=== PATIENT | male | born 1955 | race Caucasian/White ===

== ENCOUNTER → 2020-03-16 10:01 | Outpatient (BNVA) | payer MEDICARE, SELFPAY | PROVIDERS: Family Provider Nurse Practitioner Family; PCP Nurse Practitioner Family; Visit Provider Registered Nurse | DX: R05 Cough (principal); R60.9 Edema, unspecified; M79.89 Other specified soft tissue disorders; I10 Essential (primary) hypertension; R73.03 Prediabetes; E66.01 Morbid (severe) obesity due to excess calories | CPT/HCPCS: 80053; 80061; 83880; 85025 ==

== ENCOUNTER → 2020-03-17 16:48 | Outpatient (BNVA) | payer MEDICARE, SELFPAY | PROVIDERS: Family Provider Nurse Practitioner Family; PCP Nurse Practitioner Family; Visit Provider Registered Nurse | DX: R05 Cough (principal); R60.9 Edema, unspecified; M79.89 Other specified soft tissue disorders; I10 Essential (primary) hypertension; R73.03 Prediabetes; E66.01 Morbid (severe) obesity due to excess calories | CPT/HCPCS: 83036 ==

== ENCOUNTER → 2020-06-15 08:51 | Outpatient (BNVA) | payer MEDICARE, SELFPAY | PROVIDERS: Family Provider Nurse Practitioner Family; PCP Nurse Practitioner Family; Visit Provider Registered Nurse | DX: E11.9 Type 2 diabetes mellitus without complications (principal); I10 Essential (primary) hypertension; Z12.5 Encounter for screening for malignant neoplasm of prostate | CPT/HCPCS: 80053; 80061; 83036; G0103 ==

== ENCOUNTER → 2020-08-17 13:49 | Outpatient (BNVA) | payer MEDICARE, SELFPAY | PROVIDERS: Family Provider Nurse Practitioner Family; PCP Nurse Practitioner Family; Visit Provider Registered Nurse | DX: R10.9 Unspecified abdominal pain (principal) | CPT/HCPCS: 81000 ==

== ENCOUNTER → 2020-09-15 09:01 | Outpatient (BNVA) | payer MEDICARE, SELFPAY | PROVIDERS: Family Provider Nurse Practitioner Family; PCP Nurse Practitioner Family; Visit Provider Registered Nurse | DX: E11.9 Type 2 diabetes mellitus without complications (principal) | CPT/HCPCS: 80053 ==

== ENCOUNTER → 2020-09-21 09:31 | Outpatient (BNVA) | payer MEDICARE, SELFPAY | PROVIDERS: Family Provider Nurse Practitioner Family; PCP Nurse Practitioner Family; Visit Provider Registered Nurse | DX: E11.9 Type 2 diabetes mellitus without complications (principal) | CPT/HCPCS: 83036 ==

== ENCOUNTER → 2020-12-22 10:56 | Outpatient (BNVA) | payer MEDICARE, SELFPAY | PROVIDERS: Family Provider Nurse Practitioner Family; PCP Nurse Practitioner Family; Visit Provider Surgery | DX: Z01.812 Encounter for preprocedural laboratory examination (principal); Z12.11 Encounter for screening for malignant neoplasm of colon | CPT/HCPCS: 87635 ==

== ENCOUNTER 2020-12-27 06:00 | Day surgery (SDC) | payer MEDICARE, SELFPAY ==
[2020-12-23 11:39] VITALS: BMI 38.7
[2020-12-27 06:23] VITALS: BP 159/66; PULSE 72; RESP 16; TEMP 36.8; O2SAT 100
[2020-12-27] MEDS: sodium chloride 0.9% 1,000 ML 30 ML IV (06:37)
[2020-12-27 06:42] LABS: Glucose Point of Care 162 mg/dL (70-110)
--- NOTE | 2020-12-27 06:51 | ANES.PREANE2 ---
Pre-Anesthetic Assessment Pre-Anesthetic Assessment: Height/Weight: Height 1.68 m Weight 108.862 kg Temp Pulse Resp BP Pulse Ox 98.2 F 72 16 159/66 100 12/27/20 06:23 12/27/20 06:23 12/27/20 06:23 12/27/20 06:23 12/27/20 06:23 Preop Diagnosis: upper gi symptoms Proposed Procedure: Operation Date: 12/27/20 07:00 Proposed Procedures p EGD/colcon 48235 R10.9 05690 Z12.11(Not Applicable) - Erasmo Salas MD s Colonoscopy 96389 Z12.11(Not Applicable) - Erasmo Salas MD Familial anesthetic complications: None Was Beta Jesse taken within 24 hours: Yes Last intake: Intake Last Liquid Date 12/26/20 Last Liquid Time 20:00 Last Solid Date 12/25/20 Last Solid Time 21:00 Social: Social History: Alcohol and No tobacco Comment: 3 beers daily Exam: Pre-Anes Outpt Exam: alert, oriented x 3, clear to auscultation bilaterally and regular rate & rhythm Airway: Cervical ROM: WNL MP: 2 Dentition: False Pulmonary: Pulmonary: Sleep apnea CV/HEM: CV/HEM: HTN Metabolic: Metabolic: DM and Morbid obesity Anesthetic Plan: ASA status: 3 Anesthesia: MAC Risk of > 500 ml blood loss (7ml/kg in children): No Meds/Allergies Current Medications: Current Medications Generic Name Dose Route Start Last Admin Trade Name Freq PRN Reason Stop Dose Admin Sodium Chloride 1,000 mls @ 30 ml s/hr 12/27/20 06:30 12/27/20 06:37 Sodium Chloride 0.9% IV 12/28/20 06:29 30 mls/hr .Q24H FOZIA Administration PFSH Anesthesia PFSH: Medical History (Updated 12/24/20 @ 18:04 by Erasmo Salas MD) Anxiety Colon polyps Diabetes Dyslipidemia Hypertension Primary insomnia Sleep apnea Surgical History (Updated 12/24/20 @ 12:38 by Erasmo Salas MD) Hx of knee surgery left shoulder Hx of shoulder surgery left knee X2 Status post colonoscopy Social History Smoking and tobacco status: never smoked Alcohol intake: current Alcohol intake frequency: holidays/special occasions only Data Anesthesia Other Labs: Laboratory Results - last 48 hr 12/27/20 06:38 POC Glucose 162 H Cardiac Studies: No Data to Display
--- NOTE | 2020-12-27 06:54 | W.PM.OPSUD ---
Surgery/Procedure H&P Update DATE OF PROCEDURE: December 27, 2020 DATE H&P PERFORMED: 12/24/20 H&P UPDATE INFORMATION: I have reviewed H&P completed within last 30 days, I have examined patient prior to procedure and No changes to prior documentation PREOP DIAGNOSIS: upper gi symptoms PLANNED PROCEDURE: Operation Date: 12/27/20 07:00 Proposed Procedures p EGD/colcon 92369 R10.9 87316 Z12.11(Not Applicable) - Erasmo Salas MD s Colonoscopy 04704 Z12.11(Not Applicable) - Erasmo Salas MD
[2020-12-27 07:41] VITALS: BP 144/72; PULSE 63; RESP 16; TEMP 36.4; O2SAT 95
[2020-12-27 07:52] VITALS: BP 148/61; PULSE 70; RESP 18; O2SAT 98
--- NOTE | 2020-12-27 14:55 | ANE.PACU2 ---
Inpatient post-anesthesia follow up: Airway intact: Yes Vital signs: Temperature 97.6 F Pulse Rate 70 Respiratory Rate 18 Blood Pressure 148/61 Pulse Oximetry 98 Oxygen Delivery Me thod Room Air Oxygen Flow Rate Fraction of Inspir ed Oxygen Hydration adequate: Yes Nausea and vomiting: No Pain level: 1 Mental status: Baseline
== END 2020-12-27 08:05 | disposition home or self-care (01) ==
PROVIDERS: PCP Nurse Practitioner Family; Visit Provider Surgery
PROC: 0DJ08ZZ Inspection of Upper Intestinal Tract, Via Natural or Artificial Opening Endoscopic (ICD-10-PCS; CPT 43235; principal; 2020-12-27 07:00)
PROC: 0DJD8ZZ Inspection of Lower Intestinal Tract, Via Natural or Artificial Opening Endoscopic (ICD-10-PCS; CPT 45378; 2020-12-27 07:00)
DX: Z12.11 Encounter for screening for malignant neoplasm of colon (principal); K25.9 Gastric ulcer, unspecified as acute or chronic, without hemorrhage or perforation; Z86.010 Personal history of colon polyps; K57.30 Diverticulosis of large intestine without perforation or abscess without bleeding; D12.8 Benign neoplasm of rectum; G47.33 Obstructive sleep apnea (adult) (pediatric); I10 Essential (primary) hypertension; E11.9 Type 2 diabetes mellitus without complications; E66.01 Morbid (severe) obesity due to excess calories; Z68.38 Body mass index [BMI] 38.0-38.9, adult; F41.9 Anxiety disorder, unspecified; E78.5 Hyperlipidemia, unspecified; G47.30 Sleep apnea, unspecified
CPT/HCPCS: 12345; 36416; 43239; 45380; 82962; 88305; J7030

== ENCOUNTER 2020-12-29 07:08 | Outpatient (CLI) | payer MEDICARE, SELFPAY ==
[2020-12-29 07:27] VITALS: BMI 38.7
--- NOTE | 2020-12-29 08:45 | NMCV_ITS ---
NM ferny perf SPECT r/s* [id number] Cj Stokes Age: 65 Gender: M : 1955 Exam Date: 12/29/2020 09:08 Ordering Phys: Zahira Marrufo DO Technologist: JESU Dennis Exam Location: [facility] Indications: Chest pain STRESS TEST Please [facility] IMAGE PROTOCOL Rest/Stress 1 Lexiscan Day Radiopharmaceutical Dose (mCi) Administration Site Administered by Rest: Tc-99m 10.6 IV JESU Dennis Sestamibi Stress:Tc-99m 32.4 IV JESU Calvo Sestamibi Rest: 29-Dec-2020 60 Discovery 630 Stress: 29-Dec-2020 45 Discovery 630 0.4mg Lexiscan. Images obtained in supine and prone position. SPECT RESULTS Technical Quality: Good Raw Data Analysis: Normal Image Corrections: Patient motion artifact - motion correction applied to rest images Summed Stress Score: 1 Summed Rest Score: 3 Summed Difference Score: 0 PERFUSION FINDINGS There is a medium sized perfusion defect in the mid inferior and apical inferior wall. This improves with stress, likely artifact. FUNCTIONAL RESULTS (calculated via Gated SPECT) Stress Image LV EF (%): 67 Stress EDV (mL):125 TID: 1.14 Stress ESV (mL):41 FUNCTIONAL FINDINGS: LV systolic function is normal with EF of 67%. IMPRESSIONS 1. There is a medium sized perfusion defect in inferior wall that improves with stress. This is likely an artifact. No evidence of ischemia. 2. LV systolic function is normal. Blair Mccord MD (Electronically Signed) Final Date: 29 December 2020 19:07 S
--- NOTE | 2020-12-29 08:45 | ECG_ITS ---
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 Interpretive Statements NAME OF STUDY: LEXISCAN SESTAMIBI STRESS TEST INDICATION: [Chest Pain] Procedure: At the baseline, the blood pressure was 194/70mmHg, heart rate of 61 bpm. The electrocardiogram showed normal sinus rhythm, left ventricular hypertrophy changes and ST-T waves consistent with LVH. The Lexiscan was infused over a duration of 20 seconds. A total of 0.4 mg of Lexiscan was infused. The stress phase was continued for a total of 5 minutes. Heart rate at the end of the stress phase was 78 bpm. Blood pressure was 246/60 mmHg. The EKG at peak infusion revealed sinus rhythm with no significant ST-T wave changes. Sestamibi was injected 20 seconds after the Lexiscan infusion. Blood pressure at the end of recovery phase was 201/66mmHg with a heart rate of 71 bpm. EKG remained unchanged. Conclusion: 1. Normal EKG response to Lexiscan infusion. 2. No Lexiscan induced chest pain or cardiac arrhythmia. 3. Hypertensive blood pressure response and normal heart rate response. 4. Sestamibi/sestamibi perfusion scan pending; see separate report. Electronically Signed On 01-02-2021 13:56:17 BACK HANGER by Blair Mccord M.D. [id number]
[2020-12-29] MEDS: hyDRALAzine 20 mg/mL INJ 1 mL 10 MG IVP (09:55)
--- NOTE | 2020-12-29 09:58 | PC.NURSE ---
CALLED DR LEACH WITH PT BP OF 216/62. HR OF 61. PT ASYMPTOMATIC. VERBAL ORDER OF 10MG OF HYDRALAZINE IVP.
[2020-12-29] MEDS: regadenoson 0.4 Mg/5 ml Syringe IVP (10:23)
[2020-12-29 10:34] VITALS: BP 201/66; PULSE 72
== END 2020-12-29 07:09 | disposition home or self-care (01) ==
LOC: CDL 07:11
PROVIDERS: PCP Nurse Practitioner Family; Visit Provider Family Medicine
DX: R07.9 Chest pain, unspecified (principal)
CPT/HCPCS: 78452; 93017; A9500; J0360; J2785

== ENCOUNTER 2021-02-23 20:00 | Outpatient (CLI) | payer MEDICARE, SELFPAY | END 2021-02-23 20:01 | disposition home or self-care (01) | LOC: SLEEP 02-24 09:56 | PROVIDERS: PCP Nurse Practitioner Family; Visit Provider Family Medicine | DX: G47.10 Hypersomnia, unspecified (principal); R53.83 Other fatigue; G47.33 Obstructive sleep apnea (adult) (pediatric) | CPT/HCPCS: 95811 ==

== ENCOUNTER → 2021-09-13 08:21 | Outpatient (BNVA) | payer MEDICARE, SELFPAY | PROVIDERS: PCP Registered Nurse; Visit Provider Registered Nurse | DX: E11.9 Type 2 diabetes mellitus without complications (principal); E78.5 Hyperlipidemia, unspecified; I10 Essential (primary) hypertension | CPT/HCPCS: 80053; 80061; 83036; 85025; G0103 ==

== ENCOUNTER → 2021-10-04 09:08 | Outpatient (BNVA) | payer MEDICARE, SELFPAY | PROVIDERS: PCP Registered Nurse; Visit Provider Internal Medicine Cardiovascular Disease | DX: R00.0 Tachycardia, unspecified (principal); R00.2 Palpitations | CPT/HCPCS: 80048; 82306; 84443 ==

== ENCOUNTER 2021-10-18 13:04 | Observation (INO) | payer MEDICARE, SELFPAY ==
[2021-10-18] VITALS (11 sets, daily range): BP systolic 156–172; BP diastolic 63–88; PULSE 56–88; RESP 14–21; TEMP 36.5–36.6; O2SAT 90–100; BMI 38.7
--- NOTE | 2021-10-18 13:04 | ECG_ITS ---
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 Measurements Intervals [place] Rate: 65 P: 59 KS: 169 QRS: 20 QRSD: 78 T: -27 QT: 369 QTc: 384 Interpretive Statements SINUS RHYTHM ST DEVIATION AND MODERATE T-WAVE ABNORMALITY, CONSIDER ANTEROLATERAL ISCHEMIA [-0.1+ mV T-WAVE IN V3-V6] ST DEVIATION AND MODERATE T-WAVE ABNORMALITY, CONSIDER INFERIOR ISCHEMIA [-0.1+ mV T-WAVE IN II/aVF] No previous ECG available for comparison Electronically Signed On 10-19-2021 17:40:02 MUD ENGINEER by Blair Mccord M.D. [email or web address]/store/[id number]
--- NOTE | 2021-10-18 13:25 | XRR_ITS ---
PROCEDURE INFORMATION: Exam: XR Chest Exam date and time: 10/18/2021 1:25 PM Age: 66 years old Clinical indication: Chest pain. Angina pectoris. TECHNIQUE: Imaging protocol: XR of the chest. Views: 1 view. COMPARISON: MRI Thoracic Spine w/o* [id number] 04/21/2016 3:53 PM FINDINGS: Lungs: Mild right basilar scarring or atelectasis. Somewhat nodular opacity projected over the left costophrenic angle measuring 2 cm. Possible small nodule in the left apex measuring 4.8 mm. Pleural spaces: No pleural effusion.. No pneumothorax. Heart/Mediastinum: The heart is enlarged. No gross evidence of pneumomediastinum. Bones/joints: No gross fracture. XR/XR chest 1V portable [id number] IMPRESSION: 1. Cardiomegaly. 2. Somewhat nodular opacity projected over the left costophrenic angle. Possible small nodule in the left apex. 3. Recommend CT chest to further assess. Radiation Dose CTDIVOL = (mGy): DLP = (mGy-cm)
--- NOTE | 2021-10-18 13:27 | W.ED.CHESTPA ---
HPI - Chest Pain General: Chief Complaint: Chest Pain Stated Complaint: Chest pains Time Seen by Provider: 10/18/21 13:25 History of Present Illness: HPI narrative: 66-year-old male presents emergency room complaining of chest pain. He states he had this for the last 11 days he has taken his regular blood pressure medicines as noted his blood pressure. He called the supply person to increase his blood pressure medicine. Pain does not radiate to his neck or arms, no diaphoresis no shortness of breath. Not had any fever sweats chills or cough. He did have a stress test earlier this year in December Lexiscan sestamibi was read as unremarkable he is not had any further evaluation. complaint: chest pain and chest heaviness Onset (ago): day(s) (11) Timing of current episode: episodic Onset: during rest Pain location: substernal Pain radiation: none Severity: mild Quality: tightness Relieving factors: nothing Exacerbating factors: nothing Associated symptoms: Deny no associated symptoms, abdominal pain, diaphoresis, dyspnea, fever(s), leg edema, nausea, palpitations, sense of impending doom, syncope or vomiting Treatment prior to arrival: none Review of Systems Const: Denies: fever(s) or diaphoresis ENMT: Denies: throat pain, ear or mastoid pain, nasal discharge or nasal congestion Card: Denies: palpitations or syncope Resp: Denies: dyspnea GI: Denies: abdominal pain, nausea or vomiting : Denies: flank pain, dysuria, urinary frequency or urinary urgency Skin/Breast: Denies: rash or pruritus PFS ED PFSH: Medical History Anxiety Colon polyps Diabetes Dyslipidemia Hypertension Primary insomnia Sleep apnea Surgical History H/O esophagogastroduodenoscopy (12/27/20) 2016 Hx of knee surgery left shoulder Hx of shoulder surgery left knee X2 Status post colonoscopy (12/27/20) 2016 Family History Other Cancer Social History (Updated 10/18/21 @ 19:44 by Peter Ham MD) Smoking and tobacco status: former smoker Alcohol intake: current Alcohol intake frequency: holidays/special occasions only Lives independently: Yes Household members: spouse Marital status: Current occupational status: retired Physical Exam Const: COMMON NORMALS: no acute distress GENERAL APPEARANCE: cooperative and comfortable ORIENTATION/CONSCIOUSNESS: Yes awake, Yes oriented to person, Yes oriented to place and Yes oriented to time HENMT: COMMON NORMALS: normocephalic, atraumatic and hearing grossly normal bilaterally HEAD & SCALP: normocephalic and atraumatic Neck/C-Spine: COMMON NORMALS: no JVD Resp: COMMON NORMALS: normal respiratory effort, No retractions, No use of accessory muscles and clear to auscultation bilaterally AUSCULTATION: clear to auscultation bilaterally Cardio: COMMON NORMALS: no JVD, regular rate, regular rhythm and No murmurs present (Cardio) RATE: regular rate RHYTHM: regular rhythm GI: COMMON NORMALS: Soft to palpation and No hepatosplenomegaly present AUSCULTATION: Yes normoactive bowel sounds PALPATION: Yes Soft to palpation, No Tenderness to palpation present (GI), No Guarding due to palpation present (GI) and Yes No hepatosplenomegaly present Extremity: COMMON NORMALS: normal to inspection, capillary refill normal, no clubbing, cyanosis or edema, no calf tenderness and no pedal edema Neuro: SENSORIUM/ORIENTATION: Yes oriented to person, Yes oriented to place and Yes oriented to time Skin: COMMON NORMALS: no rashes or lesions noted GENERAL SKIN EXAM: no rashes or lesions noted Course Vital Signs: Vital signs: Vital Signs Temperature 98.7 F 10/19/21 18:38 Pulse Rate 64 10/19/21 18:38 Respiratory Rate 14 10/19/21 18:38 Blood Pressure 157/77 10/19/21 18:38 Pulse Oximetry 96 10/19/21 18:38 MDM - Chest Pain MDM Narrative: Medical decision making narrative: Troponins are negative however patient clearly has ST depression with evolution of his EKG from his first to the second. Given this and his high risk profile organ to go ahead and admit him for further evaluation cardiology consultation. Lab Data: Labs: Lab Results 10/18/21 10/18/21 10/18/21 13:48 13:48 14:01 WBC 11.5 10^3/uL H 10 ^3/uL (4.0-10.0) RBC 4.52 10^6/uL 10^6 /uL (4.1-5.3) Hgb 13.1 g/dL g/dL (11.7-16.6) Hct 36.3 % L % (42.0-52.0) MCV 80.3 fl fl (80-94) MCH 29.0 pg pg (28.0-34.0) MCHC 36.1 g/dL H g/dL (30.0-36.0) RDW 13.5 % % (12.1-15.1) Plt Count 249 10^3/cmm 10^3 /cmm (130-400) MPV 9.2 fL fL (7.4-10.4) Neut % (Auto) 70.6 % % Lymph % (Auto) 18.5 % % [place] % (Auto) 6.5 % % Eos % (Auto) 3.1 % % Baso % (Auto) 0.6 % % Neut # (Auto) 8.11 10^3/uL H 10 ^3/uL (1.8-7.7) Lymph # (Auto) 2.1 10^3/uL 10^3/ uL (0.8-4.8) [place] # (Auto) 0.8 10^3/uL 10^3/ uL (0.2-0.9) Eos # (Auto) 0.4 10^3/uL 10^3/ uL (0.0-0.8) Baso # (Auto) 0.1 10^3/uL 10^3/ uL (0.0-0.1) Nucleated RBC % (a uto) 0 % % Nucleated RBCs # 0.0 /100WBC /100W BC PT 13.10 SECONDS SEC ONDS (12.1-14.9) INR 0.96 (0.8-1.2) APTT 25.9 SECONDS SECO NDS (23.9-36.7) Sodium 128 mmol/L L mmol /L (136-145) Potassium 4.3 mmol/L mmol/L (3.5-5.1) Chloride 87 mmol/L L mmol/ L (98-107) Carbon Dioxide 25 mmol/L mmol/L (22-29) Anion Gap 20.3 H (5-19) BUN 12 mg/dL mg/dL (8-23) Creatinine 0.9 mg/dL mg/dL (0.7-1.2) GFR Calculation 84.2 mL/min L mL/ min (90-130) Glucose 130 mg/dL H mg/dL (65-115) Calculated Osmolal ity 268 mOsm/kg L mOs m/kg (285-295) Calcium 9.1 mg/dL mg/dL (8.5-10.5) Total Bilirubin 0.3 mg/dL mg/dL (0.15-1.2) AST 17 U/L U/L (0-40) ALT 19 U/L U/L (0-41) Alkaline Phosphata se 93 IU/L IU/L (40-130) Troponin T Baselin e Troponin T 120 Min camacho Delta Troponin T Total Protein 7.1 g/dL g/dL (6.6-8.7) Albumin 4.3 g/dL g/dL (3.5-5.2) Globulin 2.8 g/dL g/dL (1.3-4.6) 10/18/21 10/18/21 14:01 15:48 WBC RBC Hgb Hct MCV MCH MCHC RDW Plt Count MPV Neut % (Auto) Lymph % (Auto) [place] % (Auto) Eos % (Auto) Baso % (Auto) Neut # (Auto) Lymph # (Auto) [place] # (Auto) Eos # (Auto) Baso # (Auto) Nucleated RBC % (a uto) Nucleated RBCs # PT INR APTT Sodium Potassium Chloride Carbon Dioxide Anion Gap BUN Creatinine GFR Calculation Glucose Calculated Osmolal ity Calcium Total Bilirubin AST ALT Alkaline Phosphata se Troponin T Baselin e 17 ng/L H ng/L (0-15) Troponin T 120 Min camacho 15.79 ng/L H ng/L (0-15) Delta Troponin T -1.21 ABS# L ABS# (0-10) Total Protein Albumin Globulin EKG Data^: EKG 1: EKG interpretation date: 10/18/21 EKG interpretation time: 13:20 Prior EKG tracings: not available for review Interpretation: ST depression 1 and 2 was inverted T waves in 2 3 and aVF. There is also some ST depression with inverted T waves in V3 through 6. No ST elevation rate of 65 with a normal UT interval. EKG 2: EKG interpretation date: 10/18/21 EKG interpretation time: 16:08 Prior EKG tracings: available for review Computer generated interpretation: T waves are now upright in leads I and II with persistent T wave inversion in V3 through [address] depression lateral leads V4 through 6. No acute ST elevation is noted. Rate of 56 UT interval normal. Discharge Plan Discharge Patient Disposition: Admitted As Inpatient Admit Provider: Peter Ham Clinical Impression: Chest pain, Sleep apnea, Hypertension, Hyperlipidemia, Morbid obesity, Type 2 diabetes, HbA1c goal < 7% Condition: Stable Discharge Diet: Cardiac and Diabetic Discharge Activity: Increase activity as tolerated Coding Level of Care Code ED Community Recreation Coordinator for Chg Fwd Exam Comprehensive
[2021-10-18] MEDS: aspirin 81 mg Chew Tablet 324 MG PO (13:34)
[2021-10-18] MEDS: nitroglycerin 1 gm/inch oint Pkt 1 INCH TOPICAL (13:37)
[2021-10-18] MEDS: ondansetron 2 mg/ML SDV 2 mL 4 MG IVP (13:47)
[2021-10-18] MEDS: morphine 4 mg/mL SDV 1 mL 2 MG IVP (13:47)
[2021-10-18 13:58] LABS: Basophils # 0.1 10^3/uL (0.0-0.1); Basophils % 0.6 %; Eosinophils # 0.4 10^3/uL (0.0-0.8); Eosinophils % 3.1 %; Hematocrit 36.3 % (42.0-52.0); Hemoglobin 13.1 g/dL (11.7-16.6); Lymphocytes # 2.1 10^3/uL (0.8-4.8); Lymphocytes % 18.5 %; Mean Corpuscular HGB Conc 36.1 g/dL (30.0-36.0); Mean Corpuscular Volume 80.3 fl (80-94); Mean Platelet Volume 9.2 fL (7.4-10.4); Monocytes # 0.8 10^3/uL (0.2-0.9); Monocytes % 6.5 %; Neutrophils # 8.11 10^3/uL (1.8-7.7); Neutrophils % 70.6 %; Nucleated Red Blood Cells % 0 %; Platelet Count 249 10^3/cmm (130-400); Red Blood Count 4.52 10^6/uL (4.1-5.3); Red Cell Distribution Width 13.5 % (12.1-15.1); White Blood Count 11.5 10^3/uL (4.0-10.0)
[2021-10-18 14:27] LABS: Alanine Aminotransferase 19 U/L (0-41); Albumin Level 4.3 g/dL (3.5-5.2); Alkaline Phosphatase 93 IU/L (40-130); Anion Gap 20.3 (5-19); Aspartate Amino Transferase 17 U/L (0-40); Blood Urea Nitrogen 12 mg/dL (8-23); Calcium 9.1 mg/dL (8.5-10.5); Carbon Dioxide 25 mmol/L (22-29); Chloride 87 mmol/L (98-107); Globulin 2.8 g/dL (1.3-4.6); Glomerular Filtration Rate 84.2 mL/min (90-130); Glucose 130 mg/dL (65-115); Osmolality Calculated 268 mOsm/kg (285-295); Potassium 4.3 mmol/L (3.5-5.1); Sodium 128 mmol/L (136-145); Total Bilirubin 0.3 mg/dL (0.15-1.2); Total Protein 7.1 g/dL (6.6-8.7)
[2021-10-18 14:30] LABS: INR 0.96 (0.8-1.2)
[2021-10-18 14:31] LABS: Partial Thromboplastin Time 25.9 SECONDS (23.9-36.7)
[2021-10-18 14:37] LABS: Troponin(5th) Baseline 17 ng/L (0-15)
--- NOTE | 2021-10-18 15:25 | ECG_ITS ---
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 Measurements Intervals [place] Rate: 58 P: 56 DE: 159 QRS: 11 QRSD: 85 T: 12 QT: 389 QTc: 384 Interpretive Statements SINUS BRADYCARDIA MODERATE T-WAVE ABNORMALITY, CONSIDER ANTEROLATERAL ISCHEMIA [-0.1+ mV T-WAVE IN V3-V6] Compared to ECG 10/18/2021 13:20:08 Sinus rhythm no longer present T-wave abnormality still present Possible ischemia still present Electronically Signed On 10-19-2021 17:45:01 JOINERY MACHINIST by Blair Mccord M.D. [id number]
[2021-10-18 16:52] LABS: Troponin 5 2HR 15.79 ng/L (0-15)
[2021-10-18 16:56] LABS: Troponin 5 2HR Delta -1.21 ABS# (0-10)
--- NOTE | 2021-10-18 18:29 | PC.PHAR ---
pt states he takes care of his own medications-pt states he thinks this is all the medications he takes -pt states he is unsure if he takes the amlodipine-notes are made in the pharmacy comments-rx last filled 07/04/21 90d/s for metformin plain 500mg bid-rx written on 10/03/21 from metformin er 500mg bid ext med history shows last filled as metformin er 500mg daily-pt states takes metformin plain 500mg bid
--- NOTE | 2021-10-18 19:25 | ECG_ITS ---
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 Measurements Intervals [place] Rate: 53 P: 61 AR: 171 QRS: 14 QRSD: 86 T: -70 QT: 404 QTc: 382 Interpretive Statements SINUS BRADYCARDIA ST DEVIATION AND MODERATE T-WAVE ABNORMALITY, CONSIDER ANTEROLATERAL ISCHEMIA [-0.1+ mV T WAVE IN V3-V6] ST DEVIATION AND MODERATE T-WAVE ABNORMALITY, CONSIDER INFERIOR ISCHEMIA [-0.1+ mV T WAVE IN II/aVF] Compared to ECG 10/18/2021 16:08:31 No significant changes Electronically Signed On 10-19-2021 17:44:35 BOILING TUB OPERATOR by Blair Mccord M.D. [id number]
--- NOTE | 2021-10-18 19:43 | P.HP_ITS ---
Providers/Chief Complaint Primary Care Provider: GABY Levi Chief Complaint: Chest pains History of Present Illness Pleasant 66-year-old gentleman presents with a week or 2 worth of persistent chest pain, sometimes in the left, sometimes on the right, denies pressure or heaviness. States it is not well-defined. Currently down to mild discomfort on the right side. Denies it is worse with position. Denies recent injury, denies worsening with movement. Does report reproducibility with palpation of the chest. Has mild cough, but says has had it for a year. Denies orthopnea. Has sleep apnea, wears his CPAP nightly. Sleeps on his back. Denies that the pain gets worse with laying back. Denies fever or chills currently. Denies any rash. Denies any tick bites. Occasional swelling of his ankles when riding his 4 x 4 for a while are otherwise keeping his legs down. His blood pressures have been running on the high side recently, and his medications have been adjusted multiple times. He reports a. About a month or 2 ago when his medications were changed when he started feeling very unwell, stating severe fatigue, symptoms almost like the flu, but not the flu symptoms. He reports did not get tested for COVID-19 at that time. He had completed vaccination series previously. Then 3 weeks ago had gotten his booster. In ER troponin is 17-15.79. EKG with T wave depressions anterolaterally and inferiorly. Chest x-ray with somewhat nodular opacity projected over the left costophrenic angle. Possible small nodule in the left apex. Review of Systems 2 Const: Denies: fever(s), chills, body aches or malaise Eyes: Denies: change in vision or eye redness ENMT: Denies: throat pain, oral sores or ear or mastoid pain Card: Reports: chest pain; Denies: edema, pre-syncope or dyspnea on exertion Resp: Denies: dyspnea, productive cough, change in phlegm color or hemoptysis GI: Denies: abdominal pain, nausea, vomiting, diarrhea, constipation, hematochezia or melena : Denies: flank pain, difficulty urinating, urinary frequency or hematuria Musc: Denies: back pain, joint swelling or joint redness Skin/Breast: Denies: rash, sores or new lesions Neuro: Denies: headache(s), numbness in extremities, weakness in extremities, dizziness, confusion or seizure-like activity Endo: Denies: polyuria or polydipsia Eliseo/Lymph: Denies: easy bleeding or purpura All/Imm: Denies: urticaria, throat swelling or tongue swelling Medications/Allergies Home Medications Medication Instructions Recorded Confirmed Last Taken Type hydrochlorothiazide 25 mg tablet 25 mg PO QAM 07/28/21 10/18/21 10/18/21 History atenolol 100 mg tablet 100 mg PO BID #60 tab 10/03/21 10/18/21 10/18/21 07:00 Rx clonidine HCl 0.2 mg tablet 0.2 mg PO TID #90 tab 10/17/21 10/18/21 10/18/21 12:00 Rx amitriptyline 25 mg PO BEDTIME 10/18/21 10/18/21 10/17/21 History amlodipine 10 mg PO DAILY 10/18/21 10/18/21 Unknown History atorvastatin 40 mg PO BEDTIME 10/18/21 10/18/21 10/17/21 History cholecalciferol (vitamin D3) 50,000 unit PO Q7D 10/18/21 10/18/21 Unknown History lisinopril 40 mg PO BID 10/18/21 10/18/21 10/18/21 07:00 History metformin 500 mg PO BID 10/18/21 10/18/21 Unknown History pantoprazole 40 mg PO QAM 10/18/21 10/18/21 10/18/21 History perphenazine 2 mg PO QAM 10/18/21 10/18/21 10/18/21 07:00 History Allergies Allergy/AdvReac Type Severity Reaction Status Date / Time codeine Allergy Mild makes pt Verified 10/18/21 18:26 feel anxious PFSH Acute PFSH: Medical History Anxiety Colon polyps Diabetes Dyslipidemia Hypertension Primary insomnia Sleep apnea Surgical History H/O esophagogastroduodenoscopy (12/27/20) 2015 Hx of knee surgery left shoulder Hx of shoulder surgery left knee X2 Status post colonoscopy (12/27/20) 2016 Family History Other Cancer Social History (Updated 10/18/21 @ 19:44 by Peter Ham MD) Smoking and tobacco status: former smoker Alcohol intake: current Alcohol intake frequency: holidays/special occasions only Substance/Drug Use: never Lives independently: Yes Household members: spouse Marital status: Current occupational status: retired Vitals/I&O/Wt Last Vital Signs Temp 97.8 F 10/18/21 13:11 Pulse 88 10/18/21 18:30 Resp 16 10/18/21 18:30 BP 171/88 10/18/21 18:30 Pulse Ox 98 10/18/21 18:30 Weight last 48 hrs Weight 108.862 kg Physical Exam Const: COMMON NORMALS: no acute distress, patient oriented x3 and alert GENERAL APPEARANCE: cooperative NUTRITIONAL APPEARANCE: obese ORIENTATION/CONSCIOUSNESS: Yes awake HENMT: COMMON NORMALS: oropharynx normal Neck/C-Spine: COMMON NORMALS: no JVD Resp: COMMON NORMALS: normal respiratory effort and clear to auscultation bilaterally AUSCULTATION: clear to auscultation bilaterally Cardio: COMMON NORMALS: no JVD, regular rhythm, S1 normal heart sound present, S2 normal heart sound present and No murmurs present (Cardio) RHYTHM: regular rhythm HEART SOUNDS: S1 normal heart sound present and S2 normal heart sound present GI: COMMON NORMALS: Normal to inspection, nondistended, normoactive bowel sounds present, Soft to palpation and non-tender PALPATION: Yes Soft to palpation Extremity: COMMON NORMALS: no joint enlargement and no pedal edema Neuro: COMMON NORMALS: patient oriented x3 and moves all extremities Skin: COMMON NORMALS: no rashes or lesions noted GENERAL SKIN EXAM: no rashes or lesions noted Data : 10/18/21 13:48 10/18/21 13:48 A&P Assessment and plan (1) Chest pain: Atypical chest pain. Risk factors for CAD. Stress test in December with artifact, without overt evidence of ischemia. Complete troponin EKG series. Continue aspirin. Continue statin. Currently mild discomfort if any. Monitor blood pressures. Recently poorly controlled. EKG changes with ST depression in several locations, but otherwise does not have other symptoms suggestive of pericarditis. No orthopnea, although wears CPAP at night due to sleep apnea. No peripheral edema. Monitor on telemetry. Assess TTE. Stress testing tomorrow. Status: Acute (2) Lung nodules: Lung nodules, atypical chest pain, assess with CT. Status: Acute Additional A&P Information Resistant hypertension HLD DM2 RENETTA on CPAP Attestations Medical Necessity Statement*: Place in observation for assessment of recurrent/persistent chest pain in a gentleman with risk factors of CAD. Coding Level of Care Code Acute Balance Wheel Screw Hole Tapper for Eyal Khan Diagnoses Chest pain R07.9 Lung nodules R91.8
[2021-10-18 21:12] LABS: Troponin 5 6HR 17.62 ng/L (0-15); Troponin 5 6HR Delta 0.62 ng/L (0-12)
--- NOTE | 2021-10-18 22:25 | CTR_ITS ---
PROCEDURE INFORMATION: Exam: CT Chest Without Contrast; Diagnostic Exam date and time: 10/18/2021 10:25 PM Age: 66 years old Clinical indication: Shortness of breath; Additional info: Ll lung nodule TECHNIQUE: Imaging protocol: Diagnostic computed tomography of the chest without contrast. Radiation optimization: All CT scans at this facility use at least one of these dose optimization techniques: automated exposure control; mA and/or kV adjustment per patient size (includes targeted exams where dose is matched to clinical indication); or iterative reconstruction. COMPARISON: CR XR chest 1V portable [id number] 10/18/2021 1:34 PM RADIATION DOSE METRICS: Total DLP (mGy-cm): 955.51 FINDINGS: Lungs: See Pleural spaces finding. Pleural spaces: No suspicious pulmonary nodularity including left costophrenic angle. Heart: Calcified lymph noted AP window. Aorta: Unremarkable. No aortic aneurysm. Lymph nodes: Unremarkable. No enlarged lymph nodes. Bones/joints: Density at left apex on recent chest radiograph represents small sclerotic finding in left 1st rib and likely represents bone island. Soft tissues: Unremarkable. CT/CT chest wo con [id number] IMPRESSION: No acute findings. No suspicious pulmonary nodularity. Radiation Dose CTDIVOL = (mGy): DLP = 955.51 (mGy-cm)
[2021-10-18] MEDS: cloNIDine 0.1 mg Tablet 0.2 MG PO (23:53)
[2021-10-18] MEDS: atorvastatin 40 mg Tablet PO (23:54)
[2021-10-18] MEDS: amitriptyline 25 mg Tablet PO (23:54)
[2021-10-19] VITALS (9 sets, daily range): BP systolic 128–183; BP diastolic 51–81; PULSE 50–67; RESP 14–28; TEMP 36.6–37.1; O2SAT 96–98
[2021-10-19] MEDS: enoxaparin 40 mg/0.4 mL Syringe SUBCUT (00:10)
[2021-10-19] MEDS: insulin lispro 100 unit/1 mL SUBCUT ×3 (00:12→17:49)
[2021-10-19 00:16] LABS: Glucose Point of Care 199 mg/dL (70-110)
[2021-10-19 03:04] LABS: Basophils # 0.1 10^3/uL (0.0-0.1); Basophils % 0.5 %; Eosinophils # 0.3 10^3/uL (0.0-0.8); Hematocrit 36.9 % (42.0-52.0); Hemoglobin 12.4 g/dL (11.7-16.6); Lymphocytes % 18.9 %; Mean Corpuscular HGB Conc 33.6 g/dL (30.0-36.0); Mean Corpuscular Hemoglobin 28.6 pg (28.0-34.0); Mean Platelet Volume 9.5 fL (7.4-10.4); Monocytes # 0.9 10^3/uL (0.2-0.9); Neutrophils # 7.27 10^3/uL (1.8-7.7); Neutrophils % 68.8 %; Nucleated Red Blood Cells % 0 %; Platelet Count 206 10^3/cmm (130-400); Red Blood Count 4.34 10^6/uL (4.1-5.3); Red Cell Distribution Width 13.5 % (12.1-15.1); White Blood Count 10.6 10^3/uL (4.0-10.0)
[2021-10-19 03:34] LABS: Anion Gap 13.8 (5-19); Blood Urea Nitrogen 13 mg/dL (8-23); Calcium 8.9 mg/dL (8.5-10.5); Carbon Dioxide 27 mmol/L (22-29); Chloride 92 mmol/L (98-107); Glomerular Filtration Rate 96.4 mL/min (90-130); Glucose 153 mg/dL (65-115); Osmolality Calculated 271 mOsm/kg (285-295); Potassium 3.8 mmol/L (3.5-5.1); Sodium 129 mmol/L (136-145)
--- NOTE | 2021-10-19 06:00 | USCV_ITS ---
Cj Stokes Age: 66 Gender: M : 1955 Exam Date: 10/19/2021 13:01 Ordering Phys: Peter Ham MD Technologist: CONOR Exam Location: [facility] Indication: CHEST PAIN BP: / HR: 58 Rhythm: Sinus Technical Quality: Adequate MEASUREMENTS (Male / Female) Normal Values 2D ECHO LV Diastolic Diameter PLAX 5.4 cm 4.2 - 5.9 / 3.9 - 5.3 cm LV Systolic Diameter PLAX 4.0 cm IVS Diastolic Thickness 1.4 cm 0.6 - 1.0 / 0.6 - 0.9 cm IVS Systolic Thickness 1.9 cm LVPW Diastolic Thickness 1.5 cm 0.6 - 1.0 / 0.6 - 0.9 cm LVPW Systolic Thickness 1.7 cm RV Chamber Size 3.6 cm LVOT Diameter 2.0 cm LV Ejection Fraction 2D Teich 52.3 % LV Ejection Fraction MOD 2C 53.7 % LV Ejection Fraction 2C AL 54.3 % LA Diameter 3.5 cm LA Width 3.7 cm LA Height 4.3 cm RA Width 3.5 cm RA Height 5.2 cm Aorta at Sinotubular Diameter 2.4 cm M-MODE Aortic Annulus Diameter 3.3 cm LA Ao Ratio MM 1.1 MV E Point Septal Separation 0.6 cm DOPPLER AV Peak Velocity 144.0 cm/s LVOT Peak Velocity 113.0 cm/s AV Area Cont Eq vti 2.6 cm squared AV Area Cont Eq pk 2.5 cm squared MV Area PHT 3.7 cm squared Mitral E to A Ratio 0.8 MV E' Velocity 60.0 cm/s Mitral E to MV E' Ratio 14.7 Mitral E to LV E' Lateral Ratio 16.4 Mitral E to LV E' Septal Ratio 13.3 TR Peak Velocity 273.4 cm/s TR Peak Gradient 29.9 mmHg TR Mean Velocity 220.4 cm/s TR Mean Gradient 21.7 mmHg TR Velocity Time Integral 89.1 cm TV Peak E Velocity 63.0 cm/s Right Atrial Pressure 3.0 mmHg Pulmonary Artery Systolic Pressu 32.9 mmHg PV Peak Velocity 99.0 cm/s RV Acceleration Time 0.2 s RV Ejection Time 0.3 s RV AcT/ET 0.5 FINDINGS Left Ventricle Normal left ventricular cavity size. Normal left ventricular systolic function. No regional wall motion abnormalities. Left ventricular ejection fraction is estimated at 55 %. Right Ventricle The right ventricle is normal in size and function. Right Atrium The right atrium is normal in size. Left Atrium The left atrium is normal in size. Mitral Valve Moderately thickened mitral valve. Mild mitral annular calcification. No mitral valve stenosis. No mitral valve regurgitation. Aortic Valve Moderate aortic valve calcification. No aortic valve stenosis. Trace aortic valve regurgitation. Tricuspid Valve Structurally normal tricuspid valve without significant stenosis or regurgitation. Pulmonary artery systolic pressure is normal. Pulmonic Valve Structurally normal pulmonic valve without significant stenosis. There is no pulmonic regurgitation. Pericardium Normal pericardium without effusion. Aorta Normal ascending aorta dimension. CONCLUSIONS 1-Normal left ventricular cavity size. Normal left ventricular systolic function. No regional wall motion abnormalities. Left ventricular ejection fraction is estimated at 55 %. 2-There is no pericardial effusion. 3-No significant valve abnormalities. 4-Pulmonary artery systolic pressure is within normal limits. 5-Right atrial pressure is around 5 mm of mercury. 6-There are no prior echocardiogram studies to compare. Radha Mix MD (Electronically Signed) Final Date: 19 October 2021 20:11 S
[2021-10-19] MEDS: pantoprazole DR 40 mg Tablet PO (06:15)
[2021-10-19] MEDS: hydroCHLOROthiazide 25 mg Tablet PO (06:15)
--- NOTE | 2021-10-19 06:38 | PC.NURSE ---
Frequent safety and comfort rounds continue. Orders and/or nursing care completed as indicated. Patient monitored for response to intervention and treatment(s). Education provided includes nothing to eat or drink after midnight accept water. Patient and/or physician representative verbalizes understanding. Will continue to monitor.
--- NOTE | 2021-10-19 07:30 | PC.NURSE ---
pt left for stress test
[2021-10-19] MEDS: regadenoson 0.4 Mg/5 ml Syringe IVP (07:50)
--- NOTE | 2021-10-19 08:00 | ECG_ITS ---
[facility] Test Date: 2021-10-19 Pat Name: Cj Stokes Department: Room: 107 Gender: Male Subsorter: : 1955 Requested By: Peter Ham Order Number: [id number] Javi MD: HEMA SIERRA Interpretive Statements NAME OF STUDY: LEXISCAN SESTAMIBI STRESS TEST INDICATION: Chest Pain, Results to Dhara Harris and Dr. Campos NOTE: Please note that this is the electrocardiogram portion of the Lexiscan/Sestamibi stress test. The perfusion scan will be documented separately. DATA: Baseline heart rate was 59 beats per minute. Baseline blood pressure was 169/69 millimeters of mercury. Target heart rate was 153. Maximum heart rate achieved was 78. which was 50 % of the predicted target heart rate. Maximum blood pressure was 185/70 millimeters of mercury. The reason for ending the test was completion of the protocol. The patient did not experience any symptoms. ELECTROCARDIOGRAM: BASELINE: Sinus rhythm. Normal axis. Inferolateral ST abnormality currently baseline. EXERCISE: After Lexiscan injection, no more than ST-T changes present at the baseline suggestive of ischemic noted. No arrhythmia noted. CONCLUSION: Please note due to baseline abnormality of the EKG specificity and sensitivity of the EKG portion of LexiScan MIBI stress test will be low 1. EKG not suggestive of ischemia 2. Lexiscan injection unremarkable. 3. Perfusion scan will be documented separately. Electronically Signed On 10-19-2021 11:32:53 SIGNAL TESTER by HEMA SIERRA [id number]
--- NOTE | 2021-10-19 09:53 | PC.NURSE ---
Patient back from stress test
--- NOTE | 2021-10-19 09:53 | PC.CHAP ---
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 and fixture maker visit [] Patient/Family/Request visit [] Outpatient visit [] Follow-up visit [] Physician referral [] Code/Alert [x] Routine visit [] Staff referral [] Actively dying [] Patient sleeping [] Family support [] [x] Out of room [] Palliative care [] [] Receiving care in room [] Pre-surgical visit [] Trauma [] Long length of stay [] ICU visit [x] Other: testing Relational/Emotional Strength [] Patient feels connected with others/family/visitors/staff [] Distress [] Loneliness/isolation [] Abandonment Spirituality of Patient [] Person of [place] [] Attends Mormon of their [place] [] Believes in Prayer [] Reads Bible or Judaism materials [] There are Spiritual issues to be addressed Supervisor [employer] Interventions [x] Prayer [] Active listening [] Non-anxious presence [] Spiritual/emotional support [] Crisis/trauma care [] Spiritual counseling [] Bereavement support [] Provided bereavement packet [] Provided Bible/devotional materials [] Provided toy/stuffed animal, coloring book to patient or family member [] Provided Communion [] Anointing/[place] [] Salvation [x] Completed spiritual assessment [] Other: Impact on Illness or Injury [] Angry [] Fearful [] Anxious [] Often cries [] Exhaustion [] Unable to work [] Unable to attend tenriism [] Unable to walk/stand [] Unable to read [] Unable to drive [] Unable to eat/drink [] Unable to sleep [] Unable to be with family [] Patient intubated [] Other: Summary Time spent with patient
[2021-10-19] MEDS: lisinopril 20 mg Tablet 40 MG PO ×2 (09:57→17:49)
[2021-10-19] MEDS: cloNIDine 0.1 mg Tablet 0.2 MG PO ×2 (09:57→15:25)
[2021-10-19] MEDS: amlodipine 10 mg Tablet PO (09:57)
[2021-10-19] MEDS: atenolol 50 mg Tablet 100 MG PO ×2 (09:57→17:49)
[2021-10-19] MEDS: aspirin 325 mg Tablet PO (09:57)
[2021-10-19 11:12] LABS: Glucose Point of Care 149 mg/dL (70-110)
[2021-10-19] MEDS: isosorbide mononitrate ER 30 mg Tablet PO (15:29)
[2021-10-19 17:08] LABS: Glucose Point of Care 145 mg/dL (70-110)
--- NOTE | 2021-10-19 18:31 | PM.DCS ---
Discharge Providers Date of Admission: 10/18/21 17:41 Date of Discharge: October 19, 2021 Attending Provider at Admission: Peter Ham Attending Provider at Discharge: Peter Ham Primary Care Provider: GABY Levi Diagnoses at Discharge Discharge Diagnosis (1) Chest pain: Status: Acute (2) Lung nodules: Status: Acute Reason for Visit Reason for Visit: Chest pains Hospital Course Hospital Course Pleasant 66-year-old gentleman with history of HTN, HLD, DM2, obesity, former smoker, sleep apnea on CPAP, came in for assessment due to about 10 days worth of recurrent episodes of chest pain, reports that pain may appear on the left or on the right side, denies worsening with position, no worsening with movement. Did report reproducibility with palpation of the chest wall. Has been having mild cough, says has had it for about a year. Denies orthopnea. Has been wearing his CPAP nightly. Denied head pain was getting worse with laying back. No fever chills currently. No rash, no recent tick bites. Occasional swelling of his ankles when keeping his legs down for a while. Reports about a month or 2 ago felt very unwell, with severe fatigue, attributed to changes in his blood pressure medications. In the hospital troponin trend 17-15.79-17.62. EKG with ST depressions anterolaterally, inferiorly. Chest x-ray with cardiomegaly, somewhat nodular opacity projected over left phrenic angle. Possible small nodule in the left apex. Followed up with CT chest with noted small sclerotic finding in left first rib likely representing bone island. Otherwise nonacute. Was monitored on telemetry. During hospitalization started on aspirin, continued on statin, beta-chrissy. Blood pressures recently have been elevated, with his primary provider escalating blood pressure regimen. Blood pressures fluctuating from 120s to 170s-180s. Most recently 157/77. He was additionally assessed by Lexiscan nuclear perfusion stress test with noted medium-sized area of fixed perfusion defect with small area of mild reversibility noted in mid to distal segment suggestive of old OR surrounded by mild ischemia in the RCA territory. Through the hospital stay he has had no chest pressure, occasional chest discomfort on right or left side, which he again noted was reproducible on palpation, or worsened by movement of his torso. Started additionally on Imdur. Results of stress test discussed with him. Echocardiogram has been ordered as well. However, he does not want to wait for assessment by cardiology or further results, wanting to discharge home, with concerns that he may leave otherwise AGAINST MEDICAL ADVICE. He understands the significance of findings and likelyhood that he possibly with recent symptoms of it and that we have not completed the work up. He reports only chest discomfort currently is on palpation of the chest. He is given prescription to continue on aspirin, instructed to continue on statin, beta-chrissy, given prescription for Imdur, nitroglycerin (instructed to avoid PDEI), and states will seek soonest available appointment with his mobile electronics installer, understands that he is at risk of OR, cardiac event, and knows to seek medical attention immediately in case of concerning symptoms. With reproducibility of chest discomfort, possibilities also of additionally costochondritis, due to which he is given a brief course of ibuprofen. Please reassess symptoms in office. Please continue optimize risk factors of coronary disease. Physical Exam Const: COMMON NORMALS: no acute distress, patient oriented x3 and alert GENERAL APPEARANCE: cooperative and comfortable ORIENTATION/CONSCIOUSNESS: Yes awake HENMT: COMMON NORMALS: oropharynx normal Neck/C-Spine: COMMON NORMALS: no JVD Resp: COMMON NORMALS: normal respiratory effort and clear to auscultation bilaterally AUSCULTATION: clear to auscultation bilaterally Cardio: COMMON NORMALS: no JVD, regular rhythm, S1 normal heart sound present, S2 normal heart sound present and No murmurs present (Cardio) RHYTHM: regular rhythm HEART SOUNDS: S1 normal heart sound present and S2 normal heart sound present GI: COMMON NORMALS: Normal to inspection, nondistended, normoactive bowel sounds present, Soft to palpation and non-tender PALPATION: Yes Soft to palpation Extremity: COMMON NORMALS: no joint enlargement and no pedal edema Neuro: COMMON NORMALS: patient oriented x3 and moves all extremities SENSORIUM/ORIENTATION: Yes alert Skin: COMMON NORMALS: no rashes or lesions noted GENERAL SKIN EXAM: no rashes or lesions noted Discharge Data Data Completed and Pending: Completed Studies During Hospitalization Category Date Time Status CT chest wo con 7 [id number] Urgent Cat Scan 10/18/21 22:25 Completed Sestamibi Stress Test Request Routi ne Exams 10/19/21 08:00 Completed XR chest 1V supa ble [id number] Stat Exams 10/18/21 13:25 Completed NM ferny perf SPECT r/s* [id number] Routin e Nuc Med 10/19/21 22:25 Completed Pending at discharge Category Date Time Status CV. echo complete * [id number] Routine Ultrasound 10/19/21 06:00 Taken Labs from last 24 hours 10/19/21 10/19/21 10/19/21 16:56 10:52 02:22 WBC RBC Hgb Hct MCV MCH MCHC RDW Plt Count MPV Neut % (Auto) Lymph % (Auto) Gonzales % (Auto) Eos % (Auto) Baso % (Auto) Neut # (Auto) Lymph # (Auto) Gonzales # (Auto) Eos # (Auto) Baso # (Auto) Nucleated RBC % (a uto) Nucleated RBCs # Sodium 129 L Potassium 3.8 Chloride 92 L Carbon Dioxide 27 Anion Gap 13.8 BUN 13 Creatinine 0.8 GFR Calculation 96.4 Glucose 153 H POC Glucose 145 H 149 H Calculated Osmolal ity 271 L Calcium 8.9 Troponin T Hi Sens 6Hr Troponin T Hi Sens 6Hr Delta 10/19/21 10/19/21 10/18/21 02:22 00:05 20:40 WBC 10.6 H RBC 4.34 Hgb 12.4 Hct 36.9 L MCV 85.0 D MCH 28.6 MCHC 33.6 D RDW 13.5 Plt Count 206 MPV 9.5 Neut % (Auto) 68.8 Lymph % (Auto) 18.9 Gonzales % (Auto) 8.0 Eos % (Auto) 3.0 Baso % (Auto) 0.5 Neut # (Auto) 7.27 Lymph # (Auto) 2.0 Gonzales # (Auto) 0.9 Eos # (Auto) 0.3 Baso # (Auto) 0.1 Nucleated RBC % (a uto) 0 Nucleated RBCs # 0.0 Sodium Potassium Chloride Carbon Dioxide Anion Gap BUN Creatinine GFR Calculation Glucose POC Glucose 199 H Calculated Osmolal ity Calcium Troponin T Hi Sens 6Hr 17.62 H Troponin T Hi Sens 6Hr Delta 0.62 Vitals: Last Vital Signs Temp 98.7 F 10/19/21 16:00 Pulse 64 10/19/21 16:00 Resp 14 10/19/21 16:00 BP 157/77 10/19/21 16:00 Pulse Ox 96 10/19/21 16:00 Discharge Plan Discharge Patient Disposition: Home Condition: Stable Prescriptions: New Adult Aspirin Regimen 81 mg tablet,delayed release (DR/EC) 81 mg PO DAILY Qty: 90 RF: 0 isosorbide mononitrate 30 mg Tablet Extended Release 24 Hr 30 mg PO DAILY Qty: 90 RF: 0 nitroglycerin 0.4 mg Tablet, Sublingual 0.4 mg sublingual Q5M PRN (Reason: Chest Pain) Qty: 20 RF: 0 ibuprofen 600 mg tablet 600 mg PO Q8H PRN (Reason: pain) Qty: 30 RF: 0 Continued hydrochlorothiazide 25 mg tablet 25 mg PO QAM RF: 0 atenolol 100 mg tablet 100 mg PO BID Qty: 60 RF: 1 clonidine HCl 0.2 mg tablet 0.2 mg PO TID Qty: 90 RF: 2 metformin 500 mg tablet 500 mg PO BID RF: 0 atorvastatin 40 mg tablet 40 mg PO BEDTIME RF: 0 perphenazine 2 mg tablet 2 mg PO QAM RF: 0 amitriptyline 25 mg tablet 25 mg PO BEDTIME RF: 0 amlodipine 10 mg tablet 10 mg PO DAILY RF: 0 pantoprazole 40 mg tablet,delayed release (DR/EC) 40 mg PO QAM RF: 0 lisinopril 40 mg tablet 40 mg PO BID RF: 0 cholecalciferol (vitamin D3) 1,250 mcg (50,000 unit) tablet 50,000 unit PO Q7D RF: 0 Discharge Orders: Discharge Order (Routine); Ordered 10/19/21 Ordered By: Peter Ham Referrals: Dhara Harris FNP [Primary Care Provider] - 4-7 days Jannette Campos MD [Physician] - 1 week Discharge Diet: Cardiac and Diabetic Discharge Activity: Increase activity as tolerated Patient Instructions: Coronary Artery Disease (GEN), Costochondritis (GEN) Activity Restrictions/Additional Instructions: Please follow-up with your mobile electronics installer at soonest available appointment, discuss abnormal stress test, recurrent symptoms of chest pain. Please note that it appears you have coronary disease and that you may have had a heart attack in the past, with small area of ischemia surrounding it. You are started on aspirin, should continue on atorvastatin, atenolol, due to risk of recurrence of heart attack. If muscle tenderness appears in other areas of her body, persistent fatigue, please discuss this with your primary doctor, and consider at that point possibility of statin induced myopathy. Again due to this please follow-up with your mobile electronics installer for reassessment. You are also started on Imdur to help with symptoms which may be arising from coronary disease. In case of chest pain, additionally take nitroglycerin up to 3 doses 5 minutes apart, if pain still not resolved, go to ER. Additionally it appears you may also have costochondritis, with pain reproducible on palpation of the chest. Ibuprofen may help with this, however, please note ibuprofen can also cause acute kidney injury, lead to high blood pressure, please have your primary doctor recheck your kidney function. Please do not take ibuprofen beyond the short course. Please note that echocardiogram results are not yet ready by the time that you are leaving the hospital. Please have your heart doctor and/your primary care doctor follow-up on the results. Please note that possible lung nodule seen on initial chest x-ray did not appear on confirmation with CT scan of your chest which was unremarkable. It did show a small sclerotic finding in the left first rib, likely representing bone island. Please discuss with your primary doctor. Discharge Attestations Time Spent in Discharge Care*: greater than 30 min Quality Metrics Clinical Quality Measures During this hospital stay, did patient experience: None Coding Level of Care Code Acute Chg FW DC note Exam Comprehensive Diagnoses Chest pain R07.9 Lung nodules R91.8
--- NOTE | 2021-10-19 19:00 | PC.NURSE ---
pt education provided. no questions or concerns. VS stable upon departure. PT educated to return to ER if Chest Pain occurs
--- NOTE | 2021-10-19 22:25 | NMCV_ITS ---
NM ferny perf SPECT r/s* [id number] StokesCj emery Age: 66 Gender: M : 1955 Exam Date: 10/19/2021 07:03 Ordering Phys: Peter Ham MD Technologist: JESU Calvo Exam Location: [facility] Indications: CHEST PAIN STRESS TEST Please see separate stress test report in [facility] for full findings IMAGE PROTOCOL Rest/Stress 1 Lexiscan Day Radiopharmaceutical Dose (mCi) Administration Site Administered by Rest: Tc-99m 10.9 IV JESU Dennis Sestamibi Stress:Tc-99m 33.0 IV JESU Dennis Sestamibi Rest: 19-Oct-2021 60 Discovery 630 Stress: 19-Oct-2021 30 Discovery 630 0.4mg Lexiscan. Images obtained in supine and prone position. SPECT RESULTS Technical Quality: Excellent Raw Data Analysis: Normal Image Corrections: No attenuation or motion correction applied Summed Stress Score: 0 Summed Rest Score: 0 Summed Difference Score: 0 PERFUSION FINDINGS Medium-sized area of fixed perfusion defect with small area of mild reversibility noted in mid to distal segment suggestive of old myocardial infarction surrounded by mild ischemia in the RCA territory FUNCTIONAL RESULTS (calculated via Gated SPECT) Stress Image LV EF (%): 73 Stress EDV (mL):112 TID: 0.85 Stress ESV (mL):30 Rest Image LV EF (%): 73 FUNCTIONAL FINDINGS: There is normal left ventricular systolic function. IMPRESSIONS Medium-sized area of fixed perfusion defect with small area of mild reversibility noted in mid to distal segment suggestive of old myocardial infarction surrounded by mild ischemia in the RCA territory. EKG segment will be documented. Radha Mix MD (Electronically Signed) Final Date: 19 October 2021 11:21 S
== END 2021-10-19 19:28 | disposition home or self-care (01) ==
LOC: ER 18:10 → CSU 21:48
PROVIDERS: Admitting Provider Internal Medicine; Emergency Provider Family Medicine; PCP Registered Nurse; Visit Provider Internal Medicine
DX: R07.89 Other chest pain (principal); R91.8 Other nonspecific abnormal finding of lung field; I10 Essential (primary) hypertension; E78.5 Hyperlipidemia, unspecified; E11.9 Type 2 diabetes mellitus without complications; G47.33 Obstructive sleep apnea (adult) (pediatric); F41.9 Anxiety disorder, unspecified; Z87.891 Personal history of nicotine dependence; Z79.84 Long term (current) use of oral hypoglycemic drugs
CPT/HCPCS: 36415; 36416; 71045; 71250; 78452; 80048; 80053; 82962; 84484; 85025; 85610; 85730; 93005; 93017; 93306; 94660; 96372; 96374; 96375; 99285; A9500; G0378; J1650; J1815; J2270; J2405; J2785

== ENCOUNTER 2021-12-20 15:17 | Outpatient (CLI) | payer MEDICARE, SELFPAY ==
--- NOTE | 2021-12-20 15:23 | XR_ITS ---
WS: [id number] Lumbar spine, 3 views, 12/20/2021 Clinical Data: M54.50 - Low back pain, unspecified Comparison: None. Findings: No compression fractures or subluxation is seen. No disc space narrowing is seen. The transverse proc esses and SI joints are normal. All the lumbar vertebral bodies show anterior osteoarthritic spurring. There is abundant spurring of the lower 2 thoracic vertebral bodies. There is calcification of the wall of the abdominal aorta but no aneurysm. XR/XR lumbar spine 2-3V* [id number] Impression: Osteoarthritis of all the anterior lumbar vertebral bodies.
--- NOTE | 2021-12-20 15:23 | XR_ITS ---
WS: [id number] Right hip, AP and frog-leg views, 12/20/2021 Clinical Data: M25.551 - Pain in right hip Comparison: None. Findings: No fractures or dislocations are seen. The right hip joint is intact. There is an acetabular lip, but no erosion, sclerosis, narrowing or cyst formation. The soft tissues are not remarkable. The adjacen t pelvis is normal. XR/XR hip RT 2-3V wo/w pel* [id number] Impression: Mild osteoarthritis of the right hip. Tonnis classification: grade 1: sclerosis of femoral head and acetabulum or sli ght joint space narrowing or slight lipping at joint margins
== END 2021-12-20 15:18 | disposition home or self-care (01) ==
LOC: RAD 15:22
PROVIDERS: PCP Registered Nurse; Visit Provider Registered Nurse
DX: M47.816 Spondylosis without myelopathy or radiculopathy, lumbar region (principal); M16.11 Unilateral primary osteoarthritis, right hip
CPT/HCPCS: 72100; 73502

== ENCOUNTER 2021-12-27 14:22 | Outpatient (RCR) | payer MEDICARE, SELFPAY | END 2022-01-23 23:59 | disposition home or self-care (01) | LOC: SPT 14:22 | PROVIDERS: PCP Registered Nurse; Referring Provider Registered Nurse; Visit Provider Registered Nurse | DX: M25.551 Pain in right hip (principal) | CPT/HCPCS: 97162 ==

== ENCOUNTER → 2022-01-10 09:29 | Outpatient (BNVA) | payer MEDICARE, SELFPAY | PROVIDERS: PCP Registered Nurse; Visit Provider Registered Nurse | DX: R53.83 Other fatigue (principal); G47.33 Obstructive sleep apnea (adult) (pediatric); Z99.89 Dependence on other enabling machines and devices; E11.9 Type 2 diabetes mellitus without complications; E55.9 Vitamin D deficiency, unspecified | CPT/HCPCS: 82306; 83036; 84403; 84443 ==

== ENCOUNTER → 2022-03-16 14:52 | Outpatient (BNVA) | payer MEDICARE, SELFPAY | PROVIDERS: PCP Registered Nurse; Visit Provider Registered Nurse | DX: J06.9 Acute upper respiratory infection, unspecified (principal); N39.0 Urinary tract infection, site not specified | CPT/HCPCS: 81000 ==

== ENCOUNTER → 2022-07-13 09:52 | Outpatient (BNVA) | payer MEDICARE, SELFPAY | PROVIDERS: PCP Registered Nurse; Visit Provider Nurse Practitioner Family | DX: E55.9 Vitamin D deficiency, unspecified (principal); I10 Essential (primary) hypertension; R53.83 Other fatigue; T50.905A Adverse effect of unspecified drugs, medicaments and biological substances, initial encounter | CPT/HCPCS: 80053; 82652; 85025 ==

== ENCOUNTER 2022-07-28 06:00 | Outpatient (RCR) | payer MEDICARE, SELFPAY | END 2022-08-25 23:59 | disposition home or self-care (01) | LOC: SPT 06:00 | PROVIDERS: PCP Registered Nurse; Visit Provider Registered Nurse | DX: R42 Dizziness and giddiness (principal) | CPT/HCPCS: 97162 ==

== ENCOUNTER → 2022-10-12 11:40 | Outpatient (BNVA) | payer MEDICARE, SELFPAY | PROVIDERS: PCP Registered Nurse; Visit Provider Nurse Practitioner Family | DX: F41.9 Anxiety disorder, unspecified (principal); M25.50 Pain in unspecified joint | CPT/HCPCS: 86592 ==

== ENCOUNTER → 2022-12-28 08:46 | Outpatient (BNVA) | payer MEDICARE, SELFPAY | PROVIDERS: PCP Registered Nurse; Visit Provider Nurse Practitioner Family | DX: E11.9 Type 2 diabetes mellitus without complications (principal); J32.9 Chronic sinusitis, unspecified | CPT/HCPCS: 80053; 83036 ==

== ENCOUNTER → 2023-05-31 09:20 | Outpatient (BNVA) | payer MEDICARE, SELFPAY | PROVIDERS: PCP Registered Nurse; Visit Provider Nurse Practitioner Family | DX: E11.9 Type 2 diabetes mellitus without complications (principal); J32.9 Chronic sinusitis, unspecified | CPT/HCPCS: 83036 ==

== ENCOUNTER → 2023-09-27 09:27 | Outpatient (BNVA) | payer MEDICARE, SELFPAY | PROVIDERS: PCP Registered Nurse; Visit Provider Nurse Practitioner Family | DX: E11.9 Type 2 diabetes mellitus without complications (principal); E78.5 Hyperlipidemia, unspecified; E87.1 Hypo-osmolality and hyponatremia; I10 Essential (primary) hypertension; Z12.5 Encounter for screening for malignant neoplasm of prostate; F17.201 Nicotine dependence, unspecified, in remission; G47.00 Insomnia, unspecified; L82.1 Other seborrheic keratosis; G47.33 Obstructive sleep apnea (adult) (pediatric); Z99.89 Dependence on other enabling machines and devices | CPT/HCPCS: 80053; 80061; 83036; 84443; 85025; G0103 ==

== ENCOUNTER 2023-10-09 07:19 | Outpatient (CLI) | payer MEDICARE, SELFPAY ==
--- NOTE | 2023-10-09 07:30 | CT_ITS ---
WS: [id number] LDCT LUNG CANCER SCREENING TECHNIQUE: Noncontrast CT of the chest with coronal and sagittal reformatted images. CLINICAL INFORMATION: F17.201 - Nicotine dependence, unspecified, in remission COMPARISON: CT 2020 DLP: 139.87 mGy.cm DIvol: Mean CTDIvol: 3.00 (mGy) All CT scans at [facility] use at least one of these dose optimization techniques: automat ed exposure control; mA and/or kV adjustment per patient size (includes targeted exams where dose is matched to clinical indication); or iterative reconstruction. FINDINGS: Lungs are well aerated. No acute pulmonary infiltrates. A few tiny nodules RIGHT upper lobe and LEFT lower lobe. No suspicious pulmonary parenchymal opacities. Normal caliber thoracic aorta. Aortic calcification. Calcified LEFT hilar nodes.Adrenal glands are no rmal. Small esophageal hernia. IMPRESSION: CT/CT lung screening [id number] LUNG-RADS: 2-Benign Appearance or Behavior FOLLOW UP: 12 Month: Continue annual screening with LDCT
== END 2023-10-09 07:20 | disposition home or self-care (01) ==
LOC: RAD 07:20
PROVIDERS: PCP Registered Nurse; Visit Provider Nurse Practitioner Family
DX: Z12.2 Encounter for screening for malignant neoplasm of respiratory organs (principal); F17.201 Nicotine dependence, unspecified, in remission
CPT/HCPCS: 71271

== ENCOUNTER 2023-12-18 09:21 | Emergency (ER) | payer MEDICARE, SELFPAY ==
[2023-12-18] VITALS (9 sets, daily range): BP systolic 152–184; BP diastolic 55–91; PULSE 57–71; RESP 12–17; TEMP 36.8; O2SAT 92–97; BMI 37.1
[2023-12-18 10:20] LABS: Basophils # 0.1 10^3/uL (0.0-0.1); Basophils % 0.3 %; Eosinophils # 0.1 10^3/uL (0.0-0.8); Eosinophils % 0.5 %; Lymphocytes # 1.8 10^3/uL (0.8-4.8); Lymphocytes % 11.5 %; Mean Corpuscular HGB Conc 36.7 g/dL (30-55); Mean Corpuscular Hemoglobin 28.9 pg (27-33); Mean Corpuscular Volume 78.8 fl (82-101); Mean Platelet Volume 9.1 fL (7.4-10.4); Monocytes % 6.5 %; Neutrophils # 12.21 10^3/uL (1.8-7.7); Neutrophils % 80.3 %; Nucleated Red Blood Cells % 0 %; Platelet Count 292 10^3/cmm (157-399); Red Blood Count 4.57 10^6/uL (3.85-5.65); Red Cell Distribution Width 13.7 % (12.1-15.1)
[2023-12-18 10:40] LABS: Alanine Aminotransferase 16 U/L (0-41); Albumin Level 3.8 g/dL (3.5-5.2); Alkaline Phosphatase 89 U/L (40-130); Anion Gap 16.6 (5-19); Aspartate Amino Transferase 25 U/L (0-40); Blood Urea Nitrogen 24 mg/dL (8-23); Calcium 9.3 mg/dL (8.5-10.5); Carbon Dioxide 26 mmol/L (22-29); Chloride 74 mmol/L (98-107); Globulin 3.8 g/dL (1.3-4.6); Glomerular Filtration Rate 66.4 mL/min (90-130); Glucose 184 mg/dL (65-115); Lipase 20 U/L (13-60); Osmolality Calculated 247 mOsm/kg (285-295); Total Bilirubin 0.5 mg/dL (0.15-1.2); Total Protein 7.6 g/dL (6.6-8.7)
[2023-12-18 10:46] LABS: Potassium 2.6 mmol/L (3.5-5.1); Sodium 114 mmol/L (136-145)
--- NOTE | 2023-12-18 11:12 | CT_ITS ---
WS: [id number] CT ABDOMEN PELVIS TECHNIQUE: Contrast-enhanced CT of the abdomen and pelvis with coronal and sagittal reformatted image s. CLINICAL INFORMATION: abd pain COMPARISON: None. DLP: 1065.[address] scans at [facility] use at least one of these dose optimization techniques: automated e xposure control; mA and/or kV adjustment per patient size (includes targeted exams where dose is matc hed to clinical indication); or iterative reconstruction. FINDINGS: Large enhancing necrotic appearing LEFT renal mass suspicious for renal cell carcinoma. This measures approximately 5.8 x 6.2 cm with involvement of the renal pelvis. This extends to involve the adjacen t lower pole calyces with suspected partial renal obstruction. Mild dilatation LEFT renal pelvis with urothelial enhancement. LEFT ureter is decompressed with surrounding induration. Vera catheter. Nor mal RIGHT renal parenchymal enhancement. Renal glands are normal. Diffuse fatty infiltration of the liver. Normal portal vein and splenic vein. Normal pancreas. Tiny e sophageal hiatal hernia. Normal sigmoid colon. Normal appendix in the RIGHT lower quadrant. LEFT renal vein appears patent. No rmal spleen. Celiac and SMA are patent. Tiny fat-containing umbilical hernia. No adenopathy in the abdomen or pelvis. Lung bases are well aer ated. Prostate measures 5.1 cm. Recommend correlation PSA. IMPRESSION: 1. Large heterogeneously enhancing anterior LEFT lower pole renal mass compatible with renal cell ca rcinoma. This appears to invade the adjacent calyces and inferior renal pelvis. Mild dilatation of th e renal pelvis with urothelial enhancement. Mild induration about the LEFT ureter which is decompress ed distally. Recommend correlation for UTI and pyelonephritis. Recommend urology consultation. 2. Slightly heterogeneous enhancement LEFT renal parenchyma suspicious for superimposed pyelonephri tis. 3. LEFT renal vein appears patent. 4. Small esophageal hernia. 5. Diffuse fatty infiltration of the liver. 6. Vera catheter in place. Notified Ishan Barry MD at 12/18/2023 12:20 PM.
[2023-12-18] MEDS: iohexol 350 mg/mL 500 mL Btl (per mL) IV (11:50)
--- NOTE | 2023-12-18 11:50 | W.ED.MALEGU ---
HPI - Male Genitourinary General: Chief complaint: Urogenital-Male Stated complaint: blood in urine Time Seen by Provider: 12/18/23 11:05 Source: patient Mode of arrival: ambulatory Limitations: no limitations History of Present Illness: 68-year-old male who states that he had a urinary obstruction last week had a Vera placed 6 days ago he states he was diagnosed with UTI started on antibiotics but states since then he has had normal oral intake he has not had a bowel movement is having some generalized weakness. States he does not know how to take care of the Vera denies any fevers denies any cough denies any worsening proving factors. PFS ED PFSH: Medical History (Updated 12/18/23 @ 20:12 by Ishan Barry MD) Tobacco abuse, in remission Right hip pain Traumatic partial tear of left biceps tendon Hyponatremia Adverse effect of drug/medicinal Nausea Colon polyps Sleep apnea Diabetes Dyslipidemia Primary insomnia Anxiety Anxiety about health Hypertension Surgical History H/O esophagogastroduodenoscopy (12/27/20) 2016 Status post colonoscopy (12/27/20) 2016 Hx of shoulder surgery left knee X2 Hx of knee surgery left shoulder Family History Other Cancer Social History Smoking and tobacco/nicotine status: never used tobacco/nicotine Alcohol intake: current Alcohol intake frequency: holidays/special occasions only Substance/Drug Use: never Lives independently: Yes Household members: spouse Marital status: Current occupational status: retired Course Vital Signs: Vital signs: Vital Signs Temperature 98.2 F 12/18/23 09:37 Pulse Rate 71 12/18/23 18:14 Respiratory Rate 16 12/18/23 20:03 Blood Pressure 159/78 12/18/23 18:14 Pulse Oximetry 95 12/18/23 20:03 Oxygen Delivery Me thod Room Air 12/18/23 09:37 MDM - Male Medical Decision Making Patient presents here with hyponatremia is also found to have a renal mass with pyelonephritis spoke to [facility] will transfer there for higher level of care for urology Medical Records I reviewed the patient's medical records. Lab Data I reviewed the patient's lab results. 12/18/23 10:11 12/18/23 11:32 Laboratory Results WBC 15.20 10^3/uL (3.29-11.43) H 12/18/23 10:11 RBC 4.57 10^6/uL (3.85-5.65) 12/18/23 10:11 Hgb 13.20 g/dL (11.27-16.99) 12/18/23 10:11 Hct 36.0 % (37-53) L 12/18/23 10:11 MCV 78.8 fl (82-101) L 12/18/23 10:11 MCH 28.9 pg (27-33) 12/18/23 10:11 MCHC 36.7 g/dL (30-55) 12/18/23 10:11 RDW 13.7 % (12.1-15.1) 12/18/23 10:11 Plt Count 292 10^3/cmm (157-399) 12/18/23 10:11 MPV 9.1 fL (7.4-10.4) 12/18/23 10:11 Neut % (Auto) 80.3 % 12/18/23 10:11 Lymph % (Auto) 11.5 % 12/18/23 10:11 [place] % (Auto) 6.5 % 12/18/23 10:11 Eos % (Auto) 0.5 % 12/18/23 10:11 Baso % (Auto) 0.3 % 12/18/23 10:11 Neut # (Auto) 12.21 10^3/uL (1.8-7.7) H 12/18/23 10:11 Lymph # (Auto) 1.8 10^3/uL (0.8-4.8) 12/18/23 10:11 [place] # (Auto) 1.0 10^3/uL (0.2-0.9) H 12/18/23 10:11 Eos # (Auto) 0.1 10^3/uL (0.0-0.8) 12/18/23 10:11 Baso # (Auto) 0.1 10^3/uL (0.0-0.1) 12/18/23 10:11 Nucleated RBC % (auto) 0 % 12/18/23 10:11 Nucleated RBCs # 0.0 /100WBC 12/18/23 10:11 Sodium 115 mmol/L (136-145) L* 12/18/23 11:32 Potassium 2.9 mmol/L (3.5-5.1) L 12/18/23 11:32 Chloride 73 mmol/L (98-107) L 12/18/23 11:32 Carbon Dioxide 28 mmol/L (22-29) 12/18/23 11:32 Anion Gap 16.9 (5-19) 12/18/23 11:32 BUN 23 mg/dL (8-23) 12/18/23 11:32 Creatinine 1.0 mg/dL (0.7-1.2) 12/18/23 11:32 GFR Calculation 74.1 mL/min (90-130) L 12/18/23 11:32 Glucose 159 mg/dL (65-115) H 12/18/23 11:32 Calculated Osmolality 247 mOsm/kg (285-295) L 12/18/23 11:32 Calcium 9.4 mg/dL (8.5-10.5) 12/18/23 11:32 Magnesium 2.2 mg/dL (1.7-2.3) 12/18/23 11:32 Total Bilirubin 0.5 mg/dL (0.15-1.2) 12/18/23 10:11 AST 25 U/L (0-40) 12/18/23 10:11 ALT 16 U/L (0-41) 12/18/23 10:11 Alkaline Phosphatase 89 U/L (40-130) 12/18/23 10:11 Total Protein 7.6 g/dL (6.6-8.7) 12/18/23 10:11 Albumin 3.8 g/dL (3.5-5.2) 12/18/23 10:11 Globulin 3.8 g/dL (1.3-4.6) 12/18/23 10:11 Lipase 20 U/L (13-60) 12/18/23 10:11 Urine Color [place] (Yellow) 12/18/23 11:57 Urine Appearance Cloudy (CLEAR) A 12/18/23 11:57 Urine pH 6 (5-7) 12/18/23 11:57 Ur Specific [place] 1.015 (1.005-1.030) 12/18/23 11:57 Urine Protein 3+ (Negative) H 12/18/23 11:57 Urine Glucose (UA) Norm (Normal) 12/18/23 11:57 Urine Ketones Negative (Negative) 12/18/23 11:57 Urine Blood 3+ (Negative) H 12/18/23 11:57 Urine Nitrate Positive (Negative) H 12/18/23 11:57 Urine Bilirubin 1+ (Negative) H 12/18/23 11:57 Urine Urobilinogen 1 mg/dL (Negative) H 12/18/23 11:57 Ur Leukocyte Esterase 2+ (Negative) H 12/18/23 11:57 Urine RBC Too numerous to cnt /hpf (0-2) H 12/18/23 11:57 Urine WBC 40-55 /hpf (0-5) H 12/18/23 11:57 Ur Squamous Epith Cells 0-4 /hpf (0-5) H 12/18/23 11:57 Amorphous Sediment 2+ /hpf 12/18/23 11:57 Urine Bacteria Trace /hpf (NONE) 12/18/23 11:57 Urine Mucus 1+ /hpf 12/18/23 11:57 All radiology interpretation(s) finalized by discharge Discharge Plan Discharge Patient Disposition: Admitted As Inpatient Clinical Impression: Acute hyponatremia, Acute pyelonephritis, Kidney mass Condition: Stable Prescriptions: No Action atenolol 100 mg tablet 100 mg PO BID Qty: 180 3RF atorvastatin 40 mg tablet 40 mg PO DAILY Qty: 90 3RF hydrochlorothiazide 25 mg tablet 25 mg PO DAILY Qty: 90 3RF lisinopril 40 mg tablet 40 mg PO BID Qty: 180 3RF lorazepam [Ativan] 0.5 mg tablet 0.5 mg PO DAILY PRN (Reason: anxiety) Qty: 30 3RF metformin 500 mg tablet 500 mg PO BID Qty: 180 1RF clonidine HCl 0.2 mg tablet 0.2 mg PO TID Qty: 90 3RF hydrocodone-acetaminophen 5-325 mg tablet 1 tab PO QID PRN (Reason: Pain) cefuroxime axetil 500 mg tablet 500 mg PO BID perphenazine 2 mg tablet 2 mg PO DAILY amitriptyline 25 mg tablet 25 mg PO DAILY amlodipine 10 mg tablet 10 mg PO DAILY Referrals: Jun,Jesse, INFORMATION SPECIALIST [Primary Care Provider] - Coding Level of Care Code ED Active Directory Administrator for Eyal Khan
[2023-12-18 12:05] LABS: Blood Urea Nitrogen 23 mg/dL (8-23); Calcium 9.4 mg/dL (8.5-10.5); Carbon Dioxide 28 mmol/L (22-29); Chloride 73 mmol/L (98-107); Glomerular Filtration Rate 74.1 mL/min (90-130); Glucose 159 mg/dL (65-115); Osmolality Calculated 247 mOsm/kg (285-295)
[2023-12-18 12:15] LABS: Anion Gap 16.9 (5-19)
[2023-12-18 12:17] LABS: Potassium 2.9 mmol/L (3.5-5.1); Sodium 115 mmol/L (136-145)
[2023-12-18 12:20] LABS: Urine Appearance Cloudy (CLEAR); Urine Color Amber (Yellow)
[2023-12-18 12:21] LABS: Add Urine Microscopic? YES; Bilirubin Urine 1+ (Negative); Blood Urine 3+ (Negative); Glucose Urine UA Norm (Normal); Ketones Urine Negative (Negative); Leukocyte Esterase Urine 2+ (Negative); Nitrate Urine Positive (Negative); Protein Urine 3+ (Negative); Specific Gravity, Urine 1.015 (1.005-1.030); Urobilinogen Urine 1 mg/dL (Negative); pH Urine 6 (5-7)
[2023-12-18] MEDS: sodium chloride 0.9% 1,000 ML 999 ML IV (12:39)
[2023-12-18 12:40] LABS: Magnesium 2.2 mg/dL (1.7-2.3)
[2023-12-18] MEDS: cefTRIAXone 1,000 MG in sodium chloride 0.9% (plus) 50 ML 100 MG IV (12:40)
[2023-12-18 12:48] LABS: Bacteria Urine TRACE /hpf; Mucus Urine 1+ /hpf; RBC Urine TOO NUMEROUS TO CNT /hpf (0-2); Squamous Epithelial Cell Urine 0-4 /hpf (0-5); WBC Urine 40-55 /hpf (0-5)
[2023-12-18 12:49] LABS: Add Urine Culture? Yes; Amorphous Sediment Urine 2+ /hpf
[2023-12-18] MEDS: hyDRALAzine 20 mg/mL INJ 1 mL 10 MG IVP (16:49)
[2023-12-18] MEDS: ondansetron 2 mg/ML SDV 2 mL 4 MG IVP (20:01)
[2023-12-18] MEDS: HYDROmorphone 1 mg/mL INJ 1 mL IVP (20:03)
--- NOTE | 2023-12-18 21:54 | PC.NURSE ---
report called to JONATHAN Gerardo in the MICU at [facility]. Currently waiting on transport.
[2023-12-19 00:03] VITALS: BP 181/77; PULSE 59; RESP 18; O2SAT 91
[2023-12-19 00:47] VITALS: BP 168/74; PULSE 59; RESP 18; O2SAT 94
[2023-12-19] MEDS: cefTRIAXone 1,000 MG in sodium chloride 0.9% (plus) 50 ML 100 MG IV (01:55)
[2023-12-19 02:37] VITALS: BP 163/75; PULSE 59; RESP 18; O2SAT 94
[2023-12-19 03:44] VITALS: BP 182/90; PULSE 59; RESP 18; O2SAT 96
--- NOTE | 2023-12-19 04:32 | PC.NURSE ---
called to update velez on transportation delays. The nurse was questioning why we did not do q2 hr sodium levels. This was not told to me in report and it was not documented on the ER physician notes. An order was placed at this time for labs.
--- NOTE | 2023-12-19 04:36 | PC.NURSE ---
[facility] called at 0318 informing us that the pts transfer would be delayed until 0700. pt is first on the list to be transferred in the am.
[2023-12-19 04:41] LABS: Basophils % 0.2 %; Eosinophils # 0.1 10^3/uL (0.0-0.8); Eosinophils % 0.7 %; Hematocrit 35.5 % (37-53); Lymphocytes # 1.6 10^3/uL (0.8-4.8); Lymphocytes % 11.8 %; Mean Corpuscular HGB Conc 36.1 g/dL (30-55); Mean Corpuscular Hemoglobin 28.6 pg (27-33); Mean Corpuscular Volume 79.2 fl (82-101); Mean Platelet Volume 9.1 fL (7.4-10.4); Monocytes # 1.1 10^3/uL (0.2-0.9); Monocytes % 8.1 %; Neutrophils # 10.32 10^3/uL (1.8-7.7); Neutrophils % 78.1 %; Nucleated Red Blood Cells % 0 %; Platelet Count 299 10^3/cmm (157-399); Red Blood Count 4.48 10^6/uL (3.85-5.65); Red Cell Distribution Width 13.7 % (12.1-15.1); White Blood Count 13.21 10^3/uL (3.29-11.43)
[2023-12-19 05:01] LABS: Alanine Aminotransferase 17 U/L (0-41); Albumin Level 3.6 g/dL (3.5-5.2); Alkaline Phosphatase 89 U/L (40-130); Anion Gap 16.8 (5-19); Aspartate Amino Transferase 19 U/L (0-40); Blood Urea Nitrogen 22 mg/dL (8-23); Calcium 9.2 mg/dL (8.5-10.5); Carbon Dioxide 26 mmol/L (22-29); Chloride 81 mmol/L (98-107); Globulin 3.7 g/dL (1.3-4.6); Glucose 150 mg/dL (65-115); Magnesium 2.4 mg/dL (1.7-2.3); Osmolality Calculated 258 mOsm/kg (285-295); Sodium 121 mmol/L (136-145); Total Bilirubin 0.4 mg/dL (0.15-1.2); Total Protein 7.3 g/dL (6.6-8.7)
[2023-12-19 05:03] LABS: Potassium 2.8 mmol/L (3.5-5.1)
--- NOTE | 2023-12-19 05:37 | PC.NURSE ---
pt update for agustin nurse given at 0400 approx
[2023-12-19 06:41] VITALS: PULSE 61; RESP 18; O2SAT 96
[2023-12-19 07:38] VITALS: BP 187/89; PULSE 85; O2SAT 98
== END 2023-12-19 07:41 | disposition admitted as inpatient to this hospital (09) ==
PROVIDERS: Emergency Medicine; Emergency Provider Emergency Medicine; PCP Nurse Practitioner Family
DX: E87.1 Hypo-osmolality and hyponatremia (principal); N10 Acute pyelonephritis; N28.89 Other specified disorders of kidney and ureter; Z79.84 Long term (current) use of oral hypoglycemic drugs; E11.9 Type 2 diabetes mellitus without complications; E78.5 Hyperlipidemia, unspecified; I10 Essential (primary) hypertension
CPT/HCPCS: 36415; 74177; 80048; 80053; 81001; 83690; 83735; 85025; 87086; 96365; 96367; 96375; 96376; 99285; J0360; J0696; J1170; J2405; J7030; Q9967

== ENCOUNTER → 2023-12-27 10:49 | Outpatient (BNVA) | payer MEDICARE, SELFPAY | PROVIDERS: PCP Nurse Practitioner Family; Visit Provider Nurse Practitioner Family | DX: C64.9 Malignant neoplasm of unspecified kidney, except renal pelvis (principal); N40.0 Benign prostatic hyperplasia without lower urinary tract symptoms; Z09 Encounter for follow-up examination after completed treatment for conditions other than malignant neoplasm | CPT/HCPCS: 80048; 85025 ==

== ENCOUNTER → 2024-02-28 09:08 | Outpatient (BNVA) | payer MEDICARE, SELFPAY | PROVIDERS: PCP Nurse Practitioner Family; Visit Provider Nurse Practitioner Family | DX: E11.9 Type 2 diabetes mellitus without complications (principal); C64.9 Malignant neoplasm of unspecified kidney, except renal pelvis | CPT/HCPCS: 80053; 83036; 85025; 86140 ==

== ENCOUNTER → 2024-09-18 11:49 | Outpatient (BNVA) | payer MEDICARE, SELFPAY | PROVIDERS: PCP Nurse Practitioner Family; Visit Provider Nurse Practitioner Family | DX: E11.9 Type 2 diabetes mellitus without complications (principal) | CPT/HCPCS: 83036; 85025 ==

== ENCOUNTER 2024-09-27 10:01 | Emergency (ER) | payer MEDICARE, SELFPAY ==
[2024-09-27 10:02] VITALS: BP 181/76; PULSE 68; RESP 18; TEMP 36.8; O2SAT 96; BMI 36.3
--- NOTE | 2024-09-27 10:02 | XRR_ITS ---
PROCEDURE INFORMATION: Exam: XR Left Knee Exam date and time: 09/27/2024 10:14 AM Age: 69 years old Clinical indication: Injury or trauma; Fall; Blunt trauma; Left; Prior surgery; Surgery date: 6+ months; Surgery type: Lt knee TECHNIQUE: Imaging protocol: Radiologic exam of the left knee. Views: 3 views. COMPARISON: No relevant prior studies available. FINDINGS: Bones/joints: Comminuted intra-articular fracture patella with separation, distraction of fragments, with perhaps close to 4-5 cm fracture gap lucency/separation of fragments. Evidence of retraction, slight rotation/tilting of superior and inferior aspects of patella. Chondrocalcinosis. Degenerative changes. No additional displaced fracture nor dislocation seen. Soft tissues: Soft tissue thickening, haziness patellar/prepatellar region suggesting edema, hematoma, or other process. XR/XR knee LT 3V* [id number] IMPRESSION: 1. Comminuted intra-articular fracture patella with marked displacement, distraction of fragments. 2. Soft tissue thickening, haziness patellar/prepatellar region suggesting edema, hematoma, or other process.
--- NOTE | 2024-09-27 10:17 | ED_ITS ---
HPI - Extremity Problem General: Chief complaint: Extremity Injury, Lower Stated complaint: L knee pain, Fall Time Seen by Provider: 09/27/24 10:02 History of Present Illness: 69-year-old female presents to the [facility] room with left knee pain. He was walking this morning he slipped and had a hyperflexion of his left knee felt a popping sensation he said it was very loud. He is unable to bear weight. No other injury. Associated symptoms: Deny chest pain, fever(s) or rash Related Data Home Medications Medication Instructions Recorded Confirmed amlodipine 10 mg tablet 10 mg PO DAILY 12/18/23 09/18/24 ibuprofen 200 mg capsule 200 mg PO Q6H PRN 12/27/23 09/18/24 tamsulosin 0.4 mg capsule 0.8 mg PO 02/07/24 09/18/24 amitriptyline 25 mg tablet mg PO 09/18/24 09/18/24 finasteride 5 mg tablet mg PO 09/18/24 09/18/24 ketorolac 0.5 % eye drops drp ophthalmic (eye) 09/18/24 09/18/24 perphenazine 2 mg tablet mg PO 09/18/24 09/18/24 prednisolone acetate 1 % eye drp ophthalmic (eye) 09/18/24 09/18/24 drops,suspension Previous Rx's Medication Instructions Recorded atenolol 100 mg tablet 100 mg PO BID #180 tabs 09/27/23 atorvastatin 40 mg tablet 40 mg PO DAILY #90 tabs 09/27/23 lisinopril 40 mg tablet 40 mg PO BID #180 tabs 09/27/23 lorazepam 0.5 mg tablet (Ativan) 0.5 mg PO DAILY PRN anxiety #30 09/27/23 tabs metformin 500 mg tablet 500 mg PO BID #180 tabs 09/27/23 blood-glucose meter,continuous #1 ea 02/07/24 (Dexcom G6 Senior Computer Specialist) blood-glucose sensor (Dexcom G6 #3 ea 02/07/24 Sensor device) clonidine HCl 0.2 mg tablet 0.2 mg PO TID #90 tabs 05/22/24 hydrocodone 5 mg-acetaminophen 325 1 tab PO Q6H PRN pain #20 tabs 09/27/24 mg tablet Allergies Allergy/AdvReac Type Severity Reaction Status Date / Time codeine Allergy Mild makes pt Verified 09/27/24 10:10 feel anxious Review of Systems Const: Denies: fever(s) or chills Card: Denies: chest pain Resp: Denies: dyspnea GI: Denies: abdominal pain : Denies: dysuria, urinary frequency or urinary urgency Musc: Reports: joint pain and joint swelling Skin/Breast: Denies: rash PFSH ED PFSH: Medical History Adverse effect of drug/medicinal Tobacco abuse, in remission Right hip pain Traumatic partial tear of left biceps tendon Hyponatremia Nausea Colon polyps Sleep apnea Diabetes Dyslipidemia Primary insomnia Anxiety Anxiety about health Hypertension Surgical History H/O esophagogastroduodenoscopy (12/27/20) 2016 Status post colonoscopy (12/27/20) 2016 Hx of shoulder surgery left knee X2 Hx of knee surgery left shoulder Family History Other Cancer Social History Smoking and tobacco/nicotine status: never used tobacco/nicotine Alcohol intake: current Alcohol intake frequency: holidays/special occasions only Substance/Drug Use: never Lives independently: Yes Household members: spouse Marital status: Current occupational status: retired Physical Exam Const: GENERAL APPEARANCE: cooperative ORIENTATION/CONSCIOUSNESS: Yes awake, Yes oriented to person, Yes oriented to place and Yes oriented to time HENMT: COMMON NORMALS: normocephalic, atraumatic and hearing grossly normal bilaterally HEAD & SCALP: normocephalic and atraumatic Resp: COMMON NORMALS: normal respiratory effort, No retractions, No use of accessory muscles and clear to auscultation bilaterally AUSCULTATION: clear to auscultation bilaterally Cardio: COMMON NORMALS: regular rate, regular rhythm and No murmurs present (Cardio) RATE: regular rate RHYTHM: regular rhythm GI: COMMON NORMALS: Soft to palpation and No hepatosplenomegaly present AUSCULTATION: Yes normoactive bowel sounds PALPATION: Yes Soft to palpation, No Tenderness to palpation present (GI), No Guarding due to palpation present (GI) and Yes No hepatosplenomegaly present Extremity: COMMON NORMALS: capillary refill normal, no clubbing, cyanosis or edema, no calf tenderness and no pedal edema OTHER: Significant swelling prepatellar suprapatellar on the left knee. No ecchymosis no deformity. Did not stress the joint due to the amount of swelling and x-ray findings Neuro: SENSORIUM/ORIENTATION: Yes oriented to person, Yes oriented to place and Yes oriented to time Skin: COMMON NORMALS: no rashes or lesions noted GENERAL SKIN EXAM: no rashes or lesions noted Course Vital Signs: Vital signs: Vital Signs Temperature 98.3 F 09/27/24 10:02 Pulse Rate 73 09/27/24 11:55 Respiratory Rate 18 09/27/24 10:02 Blood Pressure 150/98 09/27/24 11:55 Pulse Oximetry 98 09/27/24 11:55 Oxygen Delivery Me thod Room Air 09/27/24 10:02 MDM - Extremity (Nontraumatic) Medical Decision Making X-ray shows dislocated patella fracture. Will place him in a knee immobilizer patient asked about a wheelchair. I am concerned about limiting his activity prefer to have him on crutches patient is concerned about being able to manage on the crutches. Physical therapy seen and patient they recommend a walker. Want him to maintain some level of activity to decrease his risk of DVT and maintain lower extremity activity so he does not lose function. Recommended that he follow-up with orthopedics he is going to set up his own orthopedic follow-up at [facility]. Medical Records I reviewed the patient's medical records. Lab Data I reviewed the patient's lab results. Radiology Impressions Knee X-Ray 09/27/24 10:02 IMPRESSION: 1. Comminuted intra-articular fracture patella with marked displacement, distraction of fragments. 2. Soft tissue thickening, haziness patellar/prepatellar region suggesting edema, hematoma, or other process. All radiology interpretation(s) finalized by discharge Discharge Plan Discharge Patient Disposition: Home Clinical Impression: Patella fracture Condition: Stable Prescriptions: New hydrocodone-acetaminophen 5-325 mg tablet 1 tab PO Q6H PRN (Reason: pain) Qty: 20 0RF No Action perphenazine 2 mg tablet PO amitriptyline 25 mg tablet PO finasteride 5 mg tablet PO prednisolone acetate 1 % drops,suspension ophthalmic (eye) ketorolac 0.5 % drops ophthalmic (eye) atenolol 100 mg tablet 100 mg PO BID Qty: 180 3RF atorvastatin 40 mg tablet 40 mg PO DAILY Qty: 90 3RF lisinopril 40 mg tablet 40 mg PO BID Qty: 180 3RF lorazepam [Ativan] 0.5 mg tablet 0.5 mg PO DAILY PRN (Reason: anxiety) Qty: 30 3RF metformin 500 mg tablet 500 mg PO BID Qty: 180 1RF ibuprofen 200 mg capsule 200 mg PO Q6H PRN tamsulosin 0.4 mg capsule 0.8 mg PO (DME) Dexcom G6 Senior Computer Specialist Misc See Rx Instructions .Route Qty: 1 0RF Rx Instructions: As directed (DME) Dexcom G6 Sensor Device See Rx Instructions .Route Qty: 3 8RF Rx Instructions: As directed clonidine HCl 0.2 mg tablet 0.2 mg PO TID Qty: 90 3RF amlodipine 10 mg tablet 10 mg PO DAILY Discharge Orders: Discharge ED (Routine); Ordered 09/27/24 Ordered By: Chris Patrick Referrals: Matheus Barahona FNP [Primary Care Provider] - Discharge Diet: Usual diet Discharge Activity: Limit activity as instructed Patient Instructions: Patellar Fracture (ED), Opioid Safety, Pain Management Activity Restrictions/Additional Instructions: Thank you for choosing [facility] for your healthcare needs today. It is very important that you follow up as instructed or that you return to the Emergency Department should you have concerns or if your condition changes or worsens in any way. You are seen in the emergency room after a fall x-ray of your knee shows a patella fracture with some distraction of the fracture segments. (They are pulled apart from each other). This will likely require surgical repair you are placed in a knee immobilizer recommend you elevate the leg and ice it you can use pain medications as needed case management make arrangements for you to follow-up with orthopedic surgery for further evaluation and plans for defi nitive care. Coding Level of Care Code ED Support Service Tech for Eyal Khan
[2024-09-27 11:55] VITALS: BP 150/98; PULSE 73; O2SAT 98
--- NOTE | 2024-09-29 08:44 | DCPLANNER ---
messaged ortho for er f/u
== END 2024-09-27 11:56 | disposition home or self-care (01) ==
PROVIDERS: Emergency Provider Family Medicine; PCP Nurse Practitioner Family
DX: S82.002A Unspecified fracture of left patella, initial encounter for closed fracture (principal); Z79.84 Long term (current) use of oral hypoglycemic drugs; E11.9 Type 2 diabetes mellitus without complications; I10 Essential (primary) hypertension; W01.0XXA Fall on same level from slipping, tripping and stumbling without subsequent striking against object, initial encounter
CPT/HCPCS: 29530; 73562; 97116; 99283; E0114

== ENCOUNTER → 2025-03-19 10:45 | Outpatient (BNVA) | payer MEDICARE, SELFPAY | PROVIDERS: PCP Nurse Practitioner Family; Visit Provider Nurse Practitioner Family | DX: E11.9 Type 2 diabetes mellitus without complications (principal) | CPT/HCPCS: 83036; 85025 ==

== ENCOUNTER 2025-05-28 08:05 | Outpatient (CLI) | payer MEDICARE, SELFPAY ==
--- NOTE | 2025-05-28 08:11 | CT_ITS ---
WS: [id number] CT NECK TECHNIQUE: Contrast-enhanced CT of the neck with coronal and sagittal reformatted images. CLINICAL INFORMATION: DYSPHAGIA COMPARISON: None. DLP: 233.[address] scans at [facility] use at least one of these dose optimization techniques: automated exposure control; mA and/or kV adjustment per patient size (includes targeted exams where dose is matched to clinical indication); or iterative reconstruction. FINDINGS: Straightening of normal cervical lordosis. Anterior hypertrophic changes cervical spine. Minimal indentation on the hypopharynx without significant narrowing. Normal mastoid air cells. Small retention cyst LEFT maxillary sinus. Normal posterior nasopharynx. Normal parapharyngeal fat. Normal parotid and submandibular glands. Tonsillar calcifications. Normal vallecula and piriform sinuses. No evidence of supraglottic or subglottic mass. Normal thyroid. Upper lobes are well aerated. No cervical lymphadenopathy. CT/CT neck w con* [id number] IMPRESSION: 1. Normal parotid glands. Normal submandibular glands. 2. No evidence of supraglottic or glottic mass. 3. Anterior hypertrophic changes cervical spine. Minimal indentation on the 4. hypopharynx without significant narrowing. 5. No cervical lymphadenopathy.
[2025-05-28 08:41] LABS: Blood Urea Nitrogen 17 mg/dL (8-23)
[2025-05-28] MEDS: iohexol 350 mg/mL 500 mL Btl (per mL) IV (08:49)
--- NOTE | 2025-05-28 11:25 | FL_ITS ---
FL barium swallow [id number] REASON FOR EXAM: DYSPHAGIA FLUOROSCOPY TIME: 1min [id number] # OF SPOT FILMS: Multiple TECHNIQUE: Patient was examined in the standing upright PA and lateral, prone CABELLO, and supine positions. Swallowing of thin barium was monitored fluoroscopically and recorded with multiple spot films. Examination extended from the oropharynx to the stomach. FINDINGS: No aspiration or penetration of contrast into the laryngeal vestibule. Mild to moderate posterior impression by the cricopharyngeus. Normal esophageal motility in the upright position. In the prone and supine positions there is intermittent lower esophageal spasm with retention of contrast in the in the esophagus. Mild tertiary contractions with mild esophageal esophageal reflux. There is a small hiatal hernia without gastroesophageal reflux. IMPRESSION: Normal esophageal motility in the standing upright position. Mild esophageal dysmotility as above. MTDD
== END 2025-05-28 08:06 | disposition home or self-care (01) ==
LOC: RAD 08:06
PROVIDERS: PCP Nurse Practitioner Family; Visit Provider Specialist
DX: R13.19 Other dysphagia (principal); K22.4 Dyskinesia of esophagus; K21.00 Gastro-esophageal reflux disease with esophagitis, without bleeding; K44.9 Diaphragmatic hernia without obstruction or gangrene; J39.2 Other diseases of pharynx; M89.38 Hypertrophy of bone, other site; J34.1 Cyst and mucocele of nose and nasal sinus
CPT/HCPCS: 70491; 74220; 82565; 84520

== ENCOUNTER → 2025-07-15 15:03 | Outpatient (BNVA) | payer MEDICARE, SELFPAY | PROVIDERS: PCP Nurse Practitioner Family; Visit Provider Family Medicine | DX: M60.9 Myositis, unspecified (principal); R53.83 Other fatigue; E11.9 Type 2 diabetes mellitus without complications; E78.5 Hyperlipidemia, unspecified; M48.061 Spinal stenosis, lumbar region without neurogenic claudication; G99.2 Myelopathy in diseases classified elsewhere; G62.9 Polyneuropathy, unspecified; I10 Essential (primary) hypertension | CPT/HCPCS: 80053; 80061; 82085; 82550; 83036; 83721; 85025; 85651 ==

== ENCOUNTER → 2025-07-16 15:19 | Outpatient (BNVA) | payer MEDICARE, SELFPAY | PROVIDERS: PCP Nurse Practitioner Family; Visit Provider Family Medicine | DX: G62.9 Polyneuropathy, unspecified (principal); M48.061 Spinal stenosis, lumbar region without neurogenic claudication; G99.2 Myelopathy in diseases classified elsewhere; R53.83 Other fatigue | CPT/HCPCS: 84443 ==

== ENCOUNTER 2025-07-31 06:36 | Outpatient (CLI) | payer MEDICARE, SELFPAY ==
--- NOTE | 2025-07-31 07:15 | MR_ITS ---
WS: [id number] MRI LUMBAR SPINE NONCONTRAST TECHNIQUE: Sagittal T1, T2 and STIR imaging. Axial T1 and T2 imaging. CLINICAL INFORMATION: M48.061 - Spinal stenosis, lumbar region without neurogen... COMPARISON: None. FINDINGS: Mild lumbar curve. No acute compression. Bony ankylosis mid and lower thoracic spine seen on the stores assistant imaging. Small central protrusion cervical spine C6-7 seen on the stores assistant imaging. L1-L2: Normal. L2-L3: Mild annular bulging. Mild facet arthropathy. Tiny annular fissure. Tiny LEFT foraminal protrusion with mild LEFT foraminal narrowing. L3-L4: Small bilateral foraminal protrusions with slight contact of the exiting L3 nerve roots bilaterally, RIGHT greater than LEFT. Narrowing of the RIGHT subarticular recess. Spinal canal is patent. Mild facet arthropathy. L4-L5: Mild disc bulging. Moderate central canal stenosis with impingement on the traversing L5 nerve roots bilaterally RIGHT greater than LEFT. Moderate facet arthropathy with small facet effusions. Bilateral foraminal protrusions with mild bilateral foraminal narrowing. L5-S1: Mild annular bulging. Eccentric disc bulging with osteophytic ridging slightly encroaches on the exiting LEFT greater than RIGHT L5 nerve roots. Moderate facet arthropathy. Visualized pelvic bony structures: Normal. Paravertebral soft tissues: Normal. LEFT nephrectomy. MR/MR lumbar spine wo con* [id number] IMPRESSION: 1. Mild lumbar curve. No acute compression. 2. Moderate central canal stenosis L4-5 with impingement on the RIGHT greater than LEFT subarticular recess and traversing L5 nerve roots. Moderate facet art hropathy at this level. Recommend spine surgery consultation. 3. Mild bilateral L4-5 foraminal narrowing. 4. Annular bulging L3-4 impinges the RIGHT subarticular recess and traversing L4 nerve root. Mild RIGHT greater than LEFT foraminal narrowing. 5. Moderate facet arthropathy L4-L5 and L5-S1. 6. Prior LEFT nephrectomy. 7. Ankylosis mid and lower thoracic spine seen on stores assistant imaging.
== END 2025-07-31 06:37 | disposition home or self-care (01) ==
LOC: RAD 06:37
PROVIDERS: PCP Family Medicine; Visit Provider Family Medicine
DX: M48.061 Spinal stenosis, lumbar region without neurogenic claudication (principal); G99.2 Myelopathy in diseases classified elsewhere; G62.9 Polyneuropathy, unspecified; M60.9 Myositis, unspecified; M43.8X6 Other specified deforming dorsopathies, lumbar region; M47.896 Other spondylosis, lumbar region; M51.369 Other intervertebral disc degeneration, lumbar region without mention of lumbar back pain or lower extremity pain; M47.897 Other spondylosis, lumbosacral region; Z90.5 Acquired absence of kidney; M24.69 Ankylosis, other specified joint; M43.24 Fusion of spine, thoracic region; M50.223 Other cervical disc displacement at C6-C7 level; M51.26 Other intervertebral disc displacement, lumbar region; M25.48 Effusion, other site; M51.379 Other intervertebral disc degeneration, lumbosacral region without mention of lumbar back pain or lower extremity pain; M25.78 Osteophyte, vertebrae
CPT/HCPCS: 72148

== ENCOUNTER → 2025-08-13 14:53 | Outpatient (BNVA) | payer MEDICARE, SELFPAY | PROVIDERS: PCP Family Medicine; Visit Provider Orthopaedic Surgery | DX: M48.061 Spinal stenosis, lumbar region without neurogenic claudication (principal); G89.29 Other chronic pain; M54.2 Cervicalgia; R26.89 Other abnormalities of gait and mobility | CPT/HCPCS: 72110; 99203 ==

== ENCOUNTER 2025-08-15 08:21 | Inpatient (IN) | payer MEDICARE, SELFPAY ==
[2025-08-15] VITALS (8 sets, daily range): BP systolic 189–221; BP diastolic 72–115; PULSE 58–87; RESP 15–22; TEMP 36.6–36.8; O2SAT 94–98; BMI 36.8
--- NOTE | 2025-08-15 08:26 | CTR_ITS ---
PROCEDURE INFORMATION: Exam: CTA Head With Contrast, Arteriography Exam date and time: 08/15/2025 8:31 AM Age: 70 years old Clinical indication: Stroke-like symptoms; Altered mental status/memory loss and speech disturbance; Additional info: CVA TECHNIQUE: Imaging protocol: Computed tomographic angiography of the head with contrast. Exam focused on the arteries. 3D rendering (Not supervised by radiologist): MIP and/or 3D reconstructed images were created by the technologist. Radiation optimization: All CT scans at this facility use at least one of these dose optimization techniques: automated exposure control; mA and/or kV adjustment per patient size (includes targeted exams where dose is matched to clinical indication); or iterative reconstruction. Contrast material: OMNIPAQUE 350; Contrast volume: 100 ml; Contrast route: INTRAVENOUS (IV); COMPARISON: CT head thrombolytic [id number] 08/15/2025 8:29 AM RADIATION DOSE METRICS: Total DLP (mGy-cm): 572.02 FINDINGS: ANTERIOR CIRCULATION: Right internal carotid artery: Intracranial segment is patent with no significant stenosis. No aneurysm. Right middle cerebral artery: No occlusion or significant stenosis. No aneurysm. Right anterior cerebral artery: No occlusion or significant stenosis. No aneurysm. Left internal carotid artery: Intracranial segment is patent with no significant stenosis. No aneurysm. Left middle cerebral artery: No occlusion or significant stenosis. No aneurysm. Left anterior cerebral artery: No occlusion or significant stenosis. No aneurysm. POSTERIOR CIRCULATION: Right vertebral artery: No occlusion or significant stenosis. No aneurysm. Left vertebral artery: No occlusion or significant stenosis. No aneurysm. Basilar artery: No occlusion or significant stenosis. No aneurysm. Right posterior cerebral artery: No occlusion or significant stenosis. No aneurysm. Left posterior cerebral artery: No occlusion or significant stenosis. No aneurysm. Brain: No definite mass, mass effect, or midline shift. Cerebral ventricles: No ventriculomegaly. Bones/joints: Unremarkable. No acute fracture. Soft tissues: Unremarkable. PROCEDURE INFORMATION: Exam: CTA Neck With Contrast Exam date and time: 08/15/2025 8:31 AM Age: 70 years old Clinical indication: Stroke-like symptoms; Altered mental status/memory loss and speech disturbance; Additional info: CVA TECHNIQUE: Imaging protocol: Computed tomographic angiography of the neck with contrast. Exam focused on the cervical segments of the vasculature. 3D rendering (Not supervised by radiologist): MIP and/or 3D reconstructed images were created by the technologist. Radiation optimization: All CT scans at this facility use at least one of these dose optimization techniques: automated exposure control; mA and/or kV adjustment per patient size (includes targeted exams where dose is matched to clinical indication); or iterative reconstruction. Contrast material: OMNIPAQUE 350; Contrast volume: 100 ml; Contrast route: INTRAVENOUS (IV); COMPARISON: CT neck w con* [id number] 05/28/2025 8:46 AM RADIATION DOSE METRICS: Total DLP (mGy-cm): 572.02 FINDINGS: Right common carotid artery: No stenosis. No dissection or occlusion. Right internal carotid artery: No stenosis of the extracranial segment. No dissection or occlusion. Minor plaque formation near the bifurcation. Right external carotid artery: No occlusion or stenosis of the origin. Left common carotid artery: No stenosis. No dissection or occlusion. Left internal carotid artery: No stenosis of the extracranial segment. No dissection or occlusion. Minor plaque formation near the bifurcation. Left external carotid artery: No occlusion or stenosis of the origin. Right vertebral artery: No stenosis. No dissection or occlusion. Left vertebral artery: No stenosis. No dissection or occlusion. Soft tissues: Normal. No significant soft tissue swelling. Bones/joints: No acute fracture. CT/CT angio headneck* [id number] IMPRESSION: No large vessel occlusion. IMPRESSION: No artery carotid artery stenosis or occlusion. REFERENCES: NASCET CRITERIA. The degree of stenosis in the cervical segment of the internal carotid artery is based on NASCET criteria. Normal is no stenosis. Mild is less than 50% stenosis. Moderate is 50-69% stenosis. Severe is 70% to 99% stenosis. Total occlusion is no detectable patent lumen.
--- NOTE | 2025-08-15 08:26 | XRR_ITS ---
PROCEDURE INFORMATION: Exam: XR Chest Exam date and time: 08/15/2025 8:32 AM Age: 70 years old Clinical indication: Dyspnea; Additional info: CVA TECHNIQUE: Imaging protocol: Radiologic exam of the chest. Views: 1 view. COMPARISON: CT lung screening [id number] 10/09/2023 7:53 AM FINDINGS: Lungs: Unremarkable. No consolidation. Pleural spaces: Unremarkable. No pleural effusion. No pneumothorax. Heart/Mediastinum: Cardiomegaly. Bones/joints: Unremarkable. XR/XR chest 1V portable [id number] IMPRESSION: No acute pulmonary disease.
--- NOTE | 2025-08-15 08:26 | CTR_ITS ---
PROCEDURE INFORMATION: Exam: CT Head Without Contrast Exam date and time: 08/15/2025 8:29 AM Age: 70 years old Clinical indication: Stroke-like symptoms; Speech disturbance; Additional info: Symptoms of acute stroke TECHNIQUE: Imaging protocol: Computed tomography of the head without contrast. Radiation optimization: All CT scans at this facility use at least one of these dose optimization techniques: automated exposure control; mA and/or kV adjustment per patient size (includes targeted exams where dose is matched to clinical indication); or iterative reconstruction. Other technique: STROKE PROTOCOL was implemented. COMPARISON: CT neck w con* [id number] 05/28/2025 8:46 AM RADIATION DOSE METRICS: Total DLP (mGy-cm): 1092.08 FINDINGS: Brain: There is moderate cerebral atrophy. Negative for acute intracranial hemorrhage. Negative for mass effect on the brain. Negative for midline shift of brain. There is mild diffuse heterogeneity of the white matter attenuation, consistent with chronic white matter ischemic changes. Cerebral ventricles: Mild ventriculomegaly. Paranasal sinuses: Visualized sinuses are unremarkable. No fluid levels. Mastoid air cells: Visualized mastoid air cells are well aerated. Bones: Unremarkable. No acute fracture. Soft tissues: Unremarkable. CT/CT head thrombolytic [id number] IMPRESSION: Negative for acute intracranial pathology. ASSESSMENT: ASPECTS ([place] Stroke Program Early CT Score) is 10.
--- OUTSIDE RECORDS SUMMARY | 2025-08-15 08:29 | XMS_ITS | Encounter Summary ---
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
--- OUTSIDE RECORDS SUMMARY | 2025-08-15 08:29 | XMS_ITS | Encounter Summary ---
Author Organization [facility] Address [address] [place] [address] Care Team Providers Care Picker Tender Name Role Phone Zahira Marrufo DO Primary Care Provider +1- [phone] Encounter Details Date Type Department Care Team (Late st Contact Info) Description 08/07/2003 Outpatient Historical [facility] Family Medicine [place] [address] [facility] [address] [place] [address] Duarte Saldivar MD [address] [phone] Social History Tobacco Use Types Packs/Day Years Used Date Smoking Tobacco: Never Assessed Sex and Gender Information Value Date Recorded Sex Assigned at Not on file 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
--- OUTSIDE RECORDS SUMMARY | 2025-08-15 08:29 | XMS_ITS | Encounter Summary ---
Author Organization [facility] Address [address] [place] [address] Care Team Providers Care Operating Room Orderly Name Role Phone Zahira Marrufo DO Primary Care Provider +1- [phone] Encounter Details Date Type Department Care Team (Late st Contact Info) Description 11/13/2005 Outpatient Historical [facility] FY Gerard Ayala MD [address] 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
--- OUTSIDE RECORDS SUMMARY | 2025-08-15 08:29 | XMS_ITS | Encounter Summary ---
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
--- OUTSIDE RECORDS SUMMARY | 2025-08-15 08:29 | XMS_ITS | Encounter Summary ---
Author Organization [facility] Address [address] [place] [address] Care Team Providers Care Water Chaser Name Role Phone Zahira Marrufo DO Primary Care Provider +1- [phone] Encounter Details Date Type Department Care Team (Latest Contact Info) Description 12/31/2002 Outpatient Historical [facility] General Surgery [address] [address] [address] [place] [address] [place] [address] [facility] [address] [place] [address] BONE/SKIN NEOPLASM NOS (Primary Dx); UNCERTAIN BEHAV NEOPL SKIN Social History Tobacco Use Types Packs/Day Years Used Date Smoking Tobacco: Never Assessed Sex and Gender Information Value Date Recorded Sex Assigned at Not on file 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
--- OUTSIDE RECORDS SUMMARY | 2025-08-15 08:29 | XMS_ITS | Encounter Summary ---
Author Organization [facility] Address [address] [place] [address] Care Team Providers Care Gritting Machine Operator Name Role Phone Zahira Marrufo DO Primary Care Provider +1- [phone] Encounter Details Date Type Department Care Team (Latest Contact Info) Description 05/19/2002 Outpatient Historical [facility] Medicine [place] [address] [facility] [address] [place] [phone] Duarte Saldivar MD [address] [facility] [address] [place] [phone] HYPERTENSION NOS (Primary Dx); CHEST PAIN NOS Social History Tobacco Use Types Packs/Day Years Used Date Smoking Tobacco: Never Assessed Sex and Gender Information Value Date Recorded Sex Assigned at Not on file 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
--- OUTSIDE RECORDS SUMMARY | 2025-08-15 08:29 | XMS_ITS | Encounter Summary ---
Author Organization [facility] Address [address] 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
--- OUTSIDE RECORDS SUMMARY | 2025-08-15 08:29 | XMS_ITS | Encounter Summary ---
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
--- OUTSIDE RECORDS SUMMARY | 2025-08-15 08:29 | XMS_ITS | Encounter Summary ---
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
--- OUTSIDE RECORDS SUMMARY | 2025-08-15 08:29 | XMS_ITS | Encounter Summary ---
Author Organization [facility] Address [address] [place] [address] Care Team Providers Care Mold Press Operator Name Role Phone Zahira Marrufo DO Primary Care Provider Encounter Details Date Type Department Care Team (Latest Contact Info) Description 11/02/2005 Outpatient Historical [facility] General Surgery [address] [address] [address] [place] [address] [place] [address] [facility] [address] [place] [address] HYPERTENSION NOS (Primary Dx); PREOP EXAM OTHER SPECIFIED; SCREENING MAL NEOP-COLON; SCREENING MAL NEOP-PROSTATE Social History Tobacco Use Types Packs/Day Years Used Date Smoking Tobacco: Never Assessed Sex and Gender Information Value Date Recorded Sex Assigned at Not on file 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
--- OUTSIDE RECORDS SUMMARY | 2025-08-15 08:29 | XMS_ITS | Encounter Summary ---
Author Organization [facility] Address [address] [place] [address] Care Team Providers Care Forder Operator Name Role Phone Zahira Marrufo DO Primary Care Provider +1- [phone] Encounter Details Date Type Department Care Team (Latest Contact Info) Description 08/24/2003 Outpatient Historical [facility] [place] [address] 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
--- OUTSIDE RECORDS SUMMARY | 2025-08-15 08:29 | XMS_ITS | Encounter Summary ---
Author Organization [facility] Address [address] [place] [address] Care Team Providers Care Tile Trimmer Name Role Phone Zahira Marrufo DO Primary Care Provider +1- [phone] Encounter Details Date Type Department Care Team (Latest Contact Info) Description 03/24/2002 Outpatient Historical [facility] Medicine [place] [address] [facility] [address] [place] [address] Marco Antonio Worthy DO NO ADDRESS ON FILE ESOPHAGEAL REFLUX (Primary Dx); HYPERLIPIDEMIA NEC/NOS Social History Tobacco Use Types Packs/Day Years Used Date Smoking Tobacco: Never Assessed Sex and Gender Information Value Date Recorded Sex Assigned at Not on file 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
--- OUTSIDE RECORDS SUMMARY | 2025-08-15 08:29 | XMS_ITS | Encounter Summary ---
Author Organization [facility] Address [address] [place] [address] Care Team Providers Care Blood Donor Recruiter Supervisor Name Role Phone Zahira Marrufo DO Primary Care Provider +1- [phone] Encounter Details Date Type Department Care Team (Latest Contact Info) Description 05/22/2003 Outpatient Historical [facility] Medicine [place] [address] [facility] [address] [place] [address] Duarte Saldivar MD [address] [facility] [address] [place] [address] ABDOMINAL PAIN UNSPEC SITE (Primary Dx); PEPTIC ULCER NOS Social History Tobacco Use Types Packs/Day Years Used Date Smoking Tobacco: Never Assessed Sex and Gender Information Value Date Recorded Sex Assigned at Not on file 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
--- OUTSIDE RECORDS SUMMARY | 2025-08-15 08:29 | XMS_ITS | Encounter Summary ---
Author Organization 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
--- OUTSIDE RECORDS SUMMARY | 2025-08-15 08:29 | XMS_ITS | Encounter Summary ---
Author Organization [facility] Address [address] [place] [address] Care Team Providers Care Chief Of Safety And Protection Name Role Phone Zahira Marrufo DO Primary Care Provider +1- [phone] Encounter Details Date Type Department Care Team (Latest Contact Info) Description 11/09/2003 Outpatient Historical [facility] Medicine [place] 104 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
--- OUTSIDE RECORDS SUMMARY | 2025-08-15 08:29 | XMS_ITS | Encounter Summary ---
Author Organization [facility] Address [address] [place] [address] Care Team Providers Care Bottle Dealer Name Role Phone Zahira Marrufo DO Primary Care Provider +1- [phone] Encounter Details Date Type Department Care Team (Latest Contact Info) Description 05/10/2006 Outpatient Historical [facility] Medicine [place] 104 [facility] 60 [place] [phone] Dana Zaman MD NO ADDRESS ON FILE Acute Pharyngitis (Primary Dx); Acute Tracheitis without Mention of Obstruction Social History Tobacco Use Types Packs/Day Years Used Date Smoking Tobacco: Never Assessed Sex and Gender Information Value Date Recorded Sex Assigned at Not on file 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
--- OUTSIDE RECORDS SUMMARY | 2025-08-15 08:29 | XMS_ITS | Encounter Summary ---
Author Organization [facility] Address [address] [place] [address] Care Team Providers Care Application Support Name Role Phone Zahira Marrufo DO Primary Care Provider +1- [phone] Encounter Details Date Type Department Care Team (Latest Contact Info) Description 04/30/2001 Outpatient Historical [facility] Medicine [place] 104 [facility] 60 [place] [phone] Marco Antonio Worthy DO NO ADDRESS ON FILE Nevus, non-neoplastic (Primary Dx); Apnea Social History Tobacco Use Types Packs/Day Years Used Date Smoking Tobacco: Never Assessed Sex and Gender Information Value Date Recorded Sex Assigned at Not on file 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
--- OUTSIDE RECORDS SUMMARY | 2025-08-15 08:29 | XMS_ITS | Encounter Summary ---
Author Organization [facility] Address [address] [place] [address] Care Team Providers Care Automotive Window Tinter Name Role Phone Mtnv, External Provider Primary Care Provider Un available Encounter Details Date Type Department Care Team (Late st Contact Info) Description 08/11/2025 External Device Data [facility] ABSTRACTION Provider, Abstract NO ADDRESS ON FILE Social History Tobacco Use Types Packs/Day Years Used Date Smoking Tobacco: Former Cigarettes Smokeless Tobacco: Current Alcohol Use Standard Drinks/Week Comments Not Currently 0 (1 standard drink = 0.6 oz pur e alcohol) Financial Resource Strain Answer Date R ecorded How hard is it for you to pa y for the very basics like food, housing, medical care, and heating? Not very hard 11/10/2021 Food Insecurity Answer Date Recorded In the past 12 months, have you worried that your food would run out before you had money to buy more? Never true 11/10/2021 In the past 12 months, did y ou run out of food and didn't have money to buy more? Never true 11/10/2021 Transportation Needs Answer Date Record ed In the past 12 months, has l ack of transportation kept you from medical appointments or from getting medications? No 11/10/2021 Lack of Transportation (Non-Medical) Not on file 11/10/2021 Feeling Safe Answer Date Recorded Are you in a relationship wi th someone who hurts you emotionally and/or physically? 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
--- OUTSIDE RECORDS SUMMARY | 2025-08-15 08:29 | XMS_ITS | Encounter Summary ---
Author Organization [facility] Address [address] [place] [address] Care Team Providers Care Medical Record Assistant Name Role Phone Zahira Marrufo DO Primary Care Provider +1- [phone] Encounter Details Date Type Department Care Team (Latest Contact Info) Description 06/14/2006 Outpatient Historical 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
--- OUTSIDE RECORDS SUMMARY | 2025-08-15 08:29 | XMS_ITS | Encounter Summary ---
Author Organization [facility] Address [address] [place] [address] Care Team Providers Care Machine Shop Apprentice Name Role Phone Zahira Marrufo DO Primary Care Provider +1- [phone] Encounter Details Date Type Department Care Team (Latest Contact Info) Description 09/22/2002 Outpatient Historical [facility] General Surgery [address] [address] [address] [place] [address] [place] [address] [facility] [address] [place] [address] UNCERT BEHAVIOR NEOPLASM NEC (Primary Dx) Social History Tobacco Use Types Packs/Day Years Used Date Smoking Tobacco: Never Assessed Sex and Gender Information Value Date Recorded Sex Assigned at Not on file 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
--- OUTSIDE RECORDS SUMMARY | 2025-08-15 08:29 | XMS_ITS | Encounter Summary ---
Author Organization [facility] Address [address] [place] [address] Care Team Providers Care Complaint Supervisor Name Role Phone Zahira Marrufo DO Primary Care Provider +1- [phone] Encounter Details Date Type Department Care Team (Latest Contact Info) Description 06/10/2004 Outpatient Historical [facility] Medicine [place] 104 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
--- OUTSIDE RECORDS SUMMARY | 2025-08-15 08:29 | XMS_ITS | Encounter Summary ---
Author Organization [facility] Address [address] [place] [address] Care Team Providers Care Patient Support Associate Name Role Phone Zahira Marrufo DO Primary Care Provider +1- [phone] Encounter Details Date Type Department Care Team (Latest Contact Info) Description 09/15/2002 Outpatient Historical [facility] Medicine [place] 104 [facility] 60 [place] [address] Duarte Saldivar MD [address] [phone] HYPERTENSION NOS (Primary Dx); CARPAL TUNNEL SYNDROME Social History Tobacco Use Types Packs/Day Years Used Date Smoking Tobacco: Never Assessed Sex and Gender Information Value Date Recorded Sex Assigned at Not on file 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
--- OUTSIDE RECORDS SUMMARY | 2025-08-15 08:29 | XMS_ITS | Encounter Summary ---
Author Organization [facility] Address [address] [place] [address] Care Team Providers Care Welfare Investigator Name Role Phone Zahira Marrufo DO Primary Care Provider +1- [phone] Encounter Details Date Type Department Care Team (Latest Contact Info) Description 06/19/2006 Outpatient Historical [facility] General Surgery [place] [address] [address] [address] [place] [address] Javid Carrion MD [address] [facility], [address] [place] [address] Neoplasm of Uncertain Behavior of Skin (Primary Dx) Social History Tobacco Use Types Packs/Day Years Used Date Smoking Tobacco: Never Assessed Sex and Gender Information Value Date Recorded Sex Assigned at Not on file 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
--- OUTSIDE RECORDS SUMMARY | 2025-08-15 08:29 | XMS_ITS | Encounter Summary ---
Author Organization [facility] Address [address] [place] [address] Care Team Providers Care Casket Trimmer Name Role Phone Zahira Marrufo DO Primary Care Provider Encounter Details Date Type Department Care Team (Latest Contact Info) Description 11/13/2005 Outpatient Historical [facility] General Surgery [address] [address] [address] [place] [address] [place] [address] [facility] [address] [place] [address] Benign dusty lg bowel (Primary Dx); SCREENING MAL NEOP-PROSTATE; SCREENING MAL NEOP-COLON Social History Tobacco Use Types Packs/Day Years Used Date Smoking Tobacco: Never Assessed Sex and Gender Information Value Date Recorded Sex Assigned at Not on file 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
--- OUTSIDE RECORDS SUMMARY | 2025-08-15 08:29 | XMS_ITS | Encounter Summary ---
Author Organization [facility] Address [address] [place] [address] Care Team Providers Care Molder Offbearer Name Role Phone Zahira Marrufo DO Primary Care Provider Encounter Details Date Type Department Care Team (Latest Contact Info) Description 02/24/2005 Outpatient Historical [facility] Medicine [place] 104 [facility] 60 [place] [address] Duarte Saldivar MD [address] [facility] 200 [place] [phone] HYPERTENSION NOS (Primary Dx); HEADACHE; Benign dusty lg bowel Social History Tobacco Use Types Packs/Day Years Used Date Smoking Tobacco: Never Assessed Sex and Gender Information Value Date Recorded Sex Assigned at Not on file 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
--- OUTSIDE RECORDS SUMMARY | 2025-08-15 08:29 | XMS_ITS | Encounter Summary ---
Author Organization [facility] Address [address] [place] [address] Care Team Providers Care President College Or University Name Role Phone Zahira Marrufo DO Primary Care Provider +1- [phone] Encounter Details Date Type Department Care Team (Latest Contact Info) Description 02/24/2002 Outpatient Historical [facility] Medicine [place] [address] 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
--- OUTSIDE RECORDS SUMMARY | 2025-08-15 08:29 | XMS_ITS | Encounter Summary ---
Author Organization [facility] Address [address] [place] [address] Care Team Providers Care Title One Reading Teacher Name Role Phone Zahira Marrufo DO Primary Care Provider +1- [phone] Encounter Details Date Type Department Care Team (Latest Contact Info) Description 08/07/2003 Outpatient Historical [facility] Medicine [place] 104 [facility] 60 [place] [address] Duarte Saldivar MD [address] 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
--- OUTSIDE RECORDS SUMMARY | 2025-08-15 08:29 | XMS_ITS | Encounter Summary ---
Author Organization [facility] Address [address] [place] [address] Care Team Providers Care Service Engine Repairer Name Role Phone Zahira Marrufo DO Primary Care Provider +1- [phone] Encounter Details Date Type Department Care Team (Latest Contact Info) Description 10/26/2000 Outpatient Historical [facility] Medicine [place] 104 [facility] 60 [place] [address] Marco Antonio Worthy DO NO ADDRESS ON FILE Cardiac dysrhythmia, unspecified (Primary Dx) Social History Tobacco Use Types Packs/Day Years Used Date Smoking Tobacco: Never Assessed Sex and Gender Information Value Date Recorded Sex Assigned at Not on file 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
--- OUTSIDE RECORDS SUMMARY | 2025-08-15 08:29 | XMS_ITS | Encounter Summary ---
Author Organization [facility] Address [address] [place] [address] Care Team Providers Care Coder Operator Name Role Phone Zahira Marrufo DO Primary Care Provider +1- [phone] Encounter Details Date Type Department Care Team (Late st Contact Info) Description 03/14/2005 Outpatient Historical [facility] Duarte Saldivar MD [address] 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
--- OUTSIDE RECORDS SUMMARY | 2025-08-15 08:29 | XMS_ITS | Encounter Summary ---
Author Organization [facility] Address [address] [place] [address] Care Team Providers Care Mine Surveyor Name Role Phone Zahira Marrufo DO Primary Care Provider +1- [phone] Encounter Details Date Type Department Care Team (Latest Contact Info) Description 08/12/2004 Outpatient Historical [facility] Medicine [place] 104 [facility] 60 [place] [phone] Duarte Saldivar MD [address] [facility] 200 [place] [address] HYPERLIPIDEMIA NEC/NOS (Primary Dx); HYPERTENSION NOS Social History Tobacco Use Types Packs/Day Years Used Date Smoking Tobacco: Never Assessed Sex and Gender Information Value Date Recorded Sex Assigned at Not on file 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
--- OUTSIDE RECORDS SUMMARY | 2025-08-15 08:29 | XMS_ITS | Encounter Summary ---
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
--- OUTSIDE RECORDS SUMMARY | 2025-08-15 08:29 | XMS_ITS | Clinical Summary ---
Author Organization [facility] Address [address] [place] [address] Care Team Providers Care Tower Excavator Operator Name Role Phone Zahira Marrufo Paul NORIEGA Primary Care Provider Allergies Active Allergy Reactions Criticality Noted Date Comments Codeine Anxiety Low 09/19/2019 Sulfamethoxazole-Trimethoprim Nausea and Vomiting Low 10/30/2014 Medications perphenazine (TRILAFON) 2 mg tablet TAKE 1 TABLET(2 MG) BY MOUTH TWICE DAILY 180 Tablet 1 9 Active Additional Information Patient taking differently: DAILY, Reported on 01/18/2021 pantoprazole (PROTONIX) 40 mg Tablet, Delayed Release (E.C.)Indication s:Gastroesophage al reflux disease without esophagitis Take 40 mg by mouth daily. Active hydroCHLOROthiaz dameon 25 mg tabletIndication s:Essential hypertension Take 1 Tablet (25 mg) by mouth daily. 90 Tablet 1 1 Active amitriptyline (ELAVIL) 25 mg tablet Take 25 mg by mouth daily. Active triamcinolone acetonide (KENALOG) 0.1 % CreamIndications :Eczema Apply to affected area 2 times daily. 80 Gram 6 1 Active lisinopriL (PRINIVIL) 40 mg tabletIndication s:Essential hypertension Take 1 Tablet (40 mg) by mouth 2 times daily. 180 Tablet 4 1 Active cloNIDine HCL (CATAPRES) 0.1 mg tabletIndication s:Essential hypertension Take 1 Tablet (0.1 mg) by mouth 3 times daily. 270 Tablet 4 1 Active amLODIPine (NORVASC) 10 mg tabletIndication s:Essential hypertension Take 1 Tablet (10 mg) by mouth daily. 90 Tablet 4 1 Active atenoloL (TENORMIN) 100 mg tabletIndication s:Essential hypertension Take 1 Tablet (100 mg) by mouth 2 times daily. 180 Tablet 4 1 Active metFORMIN (GLUCOPHAGE) 500 mg tablet Take 1 Tablet (500 mg) by mouth 2 times daily with meals. 180 Tablet 4 1 Active Active Problems Problem Noted Date Diagnosed Date Obstructive sleep apnea syndrome 02/06/2021 Gastroesophageal reflux disease without esophagi tis 02/06/2021 Severe obesity (BMI 35.0-39.9) with comorbidity 10/03/2019 Chewing tobacco dependence 12/10/2015 Generalized anxiety disorder 07/23/2011 Eczema 07/23/2011 Essential hypertension 07/23/2011 Mixed hyperlipidemia 07/23/2011 Immunizations Immunization Administration Dates Next Due (PREVNAR 13)(6 WKS UP) PNEUM OCOCCAL CONJUGATE (PCV13) 0.5 ML, IM 11/05/2020 (SHINGRIX)(50 YRS UP) ZOSTER VACCINE RECOMBINANT, 0.5 ML, IM 02/17/2021,11/05/2020 Influenza Vaccine High Dose 65+ Yrs IM 10/03/2019(Deferred: Other (See comments)) PREVNAR (PCV13) pneumococcal 13-valent conjugate Vaccine 11/05/2020 Social History Tobacco Use Types Packs/Day Years Used Date Smoking Tobacco: Never Smokeless Tobacco: Current Tobacco Cessation:Ready to Q uit: No; Counseling Given: Yes Alcohol Use Standard Drinks/Week Comments Yes 0 (1 standard drink = 0.6 oz pur e alcohol) occasional Sex and Gender Information Value Date Recorded Sex Assigned at Not on file 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 Gender Identity Not on file Sexual Orientation Not on file Last Filed Vital Signs Vital Sign Reading Time Taken Comments Blood Pressure 140/76 04/05/2021 1:44 PM CDT Pulse 64 04/05/2021 1:44 PM CDT Temperature 36.6 C (97.9 F) 04/05/2021 1:44 PM CDT Respiratory Rate 18 04/05/2021 1:44 PM CDT Oxygen Saturation 98% 04/05/2021 1:44 PM CDT Inhaled Oxygen Concentration - - Weight 108.4 kg (239 lb) 04/05/2021 1:44 PM CDT Height 167.6 cm (5' 6 ) 04/05/2021 1:44 PM CDT Body Mass Index 38.58 04/05/2021 1:44 PM CDT Plan of Treatment Health Maintenance Due Date Last Done Comments FIT/ DNA Q 3 YEARS (AUTO ORDER) 1972 FLEX SIG/CT COLONOGRAPHY Q 5 YEARS (AUTO ORDER) 1972 DTAP/TDAP/TD VACCINES (1 - Tdap) 1973 FIT-DNA Q 3 years 1999 Flex Sig/CT Colonography Q 5 years 1999 FIT/FOBT Q 1 YEAR (AUTO ORDER) 07/26/2000 07/26/1999 , 08/16/1998 FIT/FOBT Q 1 year 07/26/2000 07/26/1999, 08/16/1998 RSV VACCINE (60+ or ) (1 - Risk 60-74 years 1-dose series) 2014 PNEUMOCOCCAL VACCINE 50+ YEA RS (2 of 2 - PCV20 or PCV21) 11/05/2021 11/05/2020, 11/05/2020 [place] Prev entative Visit/Annual Wellness Visit 11/26/2024 04/05/2021, 11/22/2020 INFLUENZA VACCINE (#1) 2025 COLORECTAL CANCER SCREENING (AUTO ORDER) 12/27/2030 12/27/2020 COLORECTAL SCREENING 12/27/2030 12/27/2020 Colorectal Cancer Screening (AUTO ORDER) 12/27/2030 Colorectal Cancer Screening 12/27/2030 ZOSTER VACCINE Completed 02/17/2021, 11/05/2020 Procedures Procedure Name Priority Date/Time Associated Diagnosis Comments ENDOSCOPY, COLON, SCREENING Routine 12/27/2020 from Last 3 Months or Most Recently Relevant to Health Maintenance Results * ENDOSCOPY, COLON, SCREENING (12/27/2020) Zahira Marrufo DO GI PROCEDURE ORDERABLES Kolby patel Result - Final from Last 3 Months or Most Recently Relevant to Health Maintenance Insurance [facility] Care Teams Tower Excavator Operator Relationship Specialty Start Date End Date Zahira Marrufo DO [address] [place] [phone] PCP - General Family Practice 12/30/20
--- OUTSIDE RECORDS SUMMARY | 2025-08-15 08:29 | XMS_ITS | Encounter Summary ---
Author Organization [facility] Address [address] [place] [address] Care Team Providers Care Metalizer Field Operation Name Role Phone Zahira Marrufo DO Primary Care Provider +1- [phone] Encounter Details Date Type Department Care Team (Latest Contact Info) Description 06/27/2002 Outpatient Historical [facility] Medicine [place] 104 [facility] [address] [place] [phone] Duarte Saldivar MD [address] [phone] HYPERTENSION NOS (Primary Dx); ESOPHAGEAL REFLUX Social History Tobacco Use Types Packs/Day Years Used Date Smoking Tobacco: Never Assessed Sex and Gender Information Value Date Recorded Sex Assigned at Not on file 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
--- OUTSIDE RECORDS SUMMARY | 2025-08-15 08:29 | XMS_ITS | Encounter Summary ---
Author Organization [facility] Address [address] [place] [address] Care Team Providers Care Director Music Name Role Phone Zahira Marrufo DO Primary Care Provider +1- [phone] Encounter Details Date Type Department Care Team (Latest Contact Info) Description 01/03/2001 Outpatient Historical [facility] Medicine [place] 104 [facility] [address] [place] [phone] Marco Antonio Worthy DO NO ADDRESS ON FILE Stomatitis and mucositis (ulcerative) (Primary Dx); Obesity, unspecified Social History Tobacco Use Types Packs/Day Years Used Date Smoking Tobacco: Never Assessed Sex and Gender Information Value Date Recorded Sex Assigned at Not on file 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
--- OUTSIDE RECORDS SUMMARY | 2025-08-15 08:29 | XMS_ITS | Encounter Summary ---
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
--- OUTSIDE RECORDS SUMMARY | 2025-08-15 08:29 | XMS_ITS | Encounter Summary ---
Author Organization [facility] Address [address] [place] [address] Care Team Providers Care Log Marker Name Role Phone Zahira Marrufo DO Primary Care Provider +1- [phone] Encounter Details Date Type Department Care Team (Latest Contact Info) Description 10/16/2005 Outpatient Historical [facility] Medicine [place] 104 [facility] 60 [place] [phone] Duarte Saldivar MD [address] [facility] [address] [place] [phone] HYPERTENSION NOS (Primary Dx); HYPERLIPIDEMIA NEC/NOS Social History Tobacco Use Types Packs/Day Years Used Date Smoking Tobacco: Never Assessed Sex and Gender Information Value Date Recorded Sex Assigned at Not on file 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
--- OUTSIDE RECORDS SUMMARY | 2025-08-15 08:30 | XMS_ITS | Encounter Summary ---
Author Organization [facility] Address [address] [place] [address] Care Team Providers Care Produce Clerk Name Role Phone Zahira Marrufo DO Primary Care Provider +1- [phone] Encounter Details Date Type Department Care Team (Latest Contact Info) Description 07/26/1999 Outpatient Historical [facility] Medicine [place] 104 [facility] [address] [place] [phone] Marco Antonio Worthy DO NO ADDRESS ON FILE Abdominal pain, unspecified site (Primary Dx); Screening for malignant neoplasm of the rectum Social History Tobacco Use Types Packs/Day Years Used Date Smoking Tobacco: Never Assessed Sex and Gender Information Value Date Recorded Sex Assigned at Not on file 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
--- OUTSIDE RECORDS SUMMARY | 2025-08-15 08:30 | XMS_ITS | Encounter Summary ---
Author Organization [facility] Address [address] [place] [address] Care Team Providers Care Delivery Truck Driver Name Role Phone Zahira Marrufo Paul NORIEGA Primary Care Provider +1- [phone] Encounter Details Date Type Department Care Team (Late st Contact Info) Description 02/09/2017 Ancillary Orders [facility] Admitting [address] [place] [address] Dhara Harris, REPAIR COIL WINDER [address] [place] [phone] Hip pain, acute, left Social History Tobacco Use Types Packs/Day Years Used Date Smoking Tobacco: Never Smokeless Tobacco: Current Alcohol Use Standard Drinks/Week Comments Yes 0 (1 standard drink = 0.6 oz pur e alcohol) occasional Sex and Gender Information Value Date Recorded Sex Assigned at Not on file 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 Exam: XR HIP 2 OR 3 VIEWS LT Date/Time of Exam: 02/09/2017 3:25 PM Reason For Exam: Hip pain, acute, left. Comparison: None Findings: No fracture or significant focal osseous or joint space abnormality. IMPRESSION: 1. Unremarkable. [id number] Narrative Procedure Note Will Lopez MD - 02/09/2017 IMPRESSION IMPRESSION: Please see below. Exam: XR HIP 2 OR 3 VIEWS LT Date/Time of Exam: 02/09/2017 3:25 PM Reason For Exam: Hip pain, acute, left. Comparison: None Findings: No fracture or significant focal osseous or joint space abnormality. IMPRESSION: 1. Unremarkable. [id number] Dhara Harirs REPAIR COIL WINDER DIAGNOSTIC IMAGING ORDERABL ES Final Result documented in this encounter Visit Diagnoses Diagnosis Hip pain, acute, left Hip pain, acute, left documented in this encounter Care Teams Delivery Truck Driver Relationship Specialty Start Date End Date Zahira Marrufo DO [address] [place] [address] PCP - General Family Practice 12/30/20 documented as of this encounter
--- OUTSIDE RECORDS SUMMARY | 2025-08-15 08:30 | XMS_ITS | Encounter Summary ---
Author Organization [facility] Address [address] [place] [address] Care Team Providers Care Panel Laminator Name Role Phone Zahira Marrufo DO Primary Care Provider +1- [phone] Encounter Details Date Type Department Care Team (Latest Contact Info) Description 08/09/1999 Outpatient Historical [facility] Medicine [place] 104 [facility] 60 [place] [phone] Marco Antonio Worthy DO NO ADDRESS ON FILE Nonspecific abnormal finding in stool contents (Primary Dx) Social History Tobacco Use Types Packs/Day Years Used Date Smoking Tobacco: Never Assessed Sex and Gender Information Value Date Recorded Sex Assigned at Not on file 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
--- OUTSIDE RECORDS SUMMARY | 2025-08-15 08:30 | XMS_ITS | Encounter Summary ---
Author Organization [facility] Address [address] [place] [address] Care Team Providers Care Returned Materials Inspector Name Role Phone Zahira Marrufo Paul NORIEGA Primary Care Provider Encounter Details Date Type Department Care Team (Late st Contact Info) Description 03/16/2020 Ancillary Orders [facility] [employer] [place] [address] [place] [address] Dhara Harris, BI LEAD [address] [place] [phone] Cough Social History Tobacco Use Types Packs/Day Years Used Date Smoking Tobacco: Never Smokeless Tobacco: Current Alcohol Use Standard Drinks/Week Comments Yes 0 (1 standard drink = 0.6 oz pur e alcohol) occasional Sex and Gender Information Value Date Recorded Sex Assigned at Not on file 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 No / Unsure 03/16/2020 10:27 AM CDT documented as of this encounter Plan of Treatment Not on file documented as of this encounter Results * XR CHEST PA AND LATERAL 2 VW (03/16/2020 10:42 AM CDT) Anatomical Region Laterality Modality Chest Computed Radiogr aphy 03/16/2020 10:4 2 AM CDT Impressions 03/16/2020 1:07 PM CDT IMPRESSION: Please see below. Exam: XR CHEST PA AND LATERAL 2 VW Date/Time of Exam: 03/16/2020 10:42 AM Reason For Exam: See Diagnosis. Diagnosis: Cough. Findings: Pulmonary hyperexpansion. No acute pulmonary pathology. No pleural effusion. Cardiomediastinal contours remarkable for borderline cardiac silhouette unchanged compared with 08/19/2014. Mild degenerative change noted in the spine. There are also hyperostotic changes in the spine. Impression: No acute pathology. [id number] Narrative Procedure Note Lennox Swan MD - 03/16/2020 IMPRESSION: Please see below. Exam: XR CHEST PA AND LATERAL 2 VW Date/Time of Exam: 03/16/2020 10:42 AM Reason For Exam: See Diagnosis. Diagnosis: Cough. Findings: Pulmonary hyperexpansion. No acute pulmonary pathology. No pleural effusion. Cardiomediastinal contours remarkable for borderline cardiac silhouette unchanged compared with 08/19/2014. Mild degenerative change noted in the spine. There are also hyperostotic changes in the spine. Impression: No acute pathology. [id number] Dhara Harris BI LEAD DIAGNOSTIC IMAGING ORDERABL ES Final Result documented in this encounter Visit Diagnoses Diagnosis Cough Cough documented in this encounter Care Teams Returned Materials Inspector Relationship Specialty Start Date End Date Zahira Marrufo DO [address] [place] [address] PCP - General Family Practice 12/30/20 documented as of this encounter
--- OUTSIDE RECORDS SUMMARY | 2025-08-15 08:30 | XMS_ITS | Encounter Summary ---
Author Organization [facility] Address [address] [place] [address] Care Team Providers Care Associate Professor Of Criminal Justice Name Role Phone Zahira Marrufo DO Primary Care Provider +1- [phone] Encounter Details Date Type Department Care Team (Latest Contact Info) Description 02/01/1999 Outpatient Historical [facility] Medicine [place] 104 [facility] [address] [place] [phone] Marco Antonio Worthy DO NO ADDRESS ON FILE Impacted cerumen (Primary Dx); Acute sinusitis, unspecified Social History Tobacco Use Types Packs/Day Years Used Date Smoking Tobacco: Never Assessed Sex and Gender Information Value Date Recorded Sex Assigned at Not on file 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
--- OUTSIDE RECORDS SUMMARY | 2025-08-15 08:30 | XMS_ITS | Encounter Summary ---
Author Organization [facility] Address [address] [place] [address] Care Team Providers Care Surgery Teacher Name Role Phone Zahira Marrufo DO Primary Care Provider +1- [phone] Encounter Details Date Type Department Care Team (Latest Contact Info) Description 10/02/2000 Outpatient Historical [facility] Medicine [place] 104 [facility] [address] [place] [phone] Marco Antonio Worthy DO NO ADDRESS ON FILE Backache, unspecified (Primary Dx) Social History Tobacco Use Types Packs/Day Years Used Date Smoking Tobacco: Never Assessed Sex and Gender Information Value Date Recorded Sex Assigned at Not on file 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
--- OUTSIDE RECORDS SUMMARY | 2025-08-15 08:30 | XMS_ITS | Encounter Summary ---
Author Organization [facility] Address [address] [place] [address] Care Team Providers Care Orchid Worker Name Role Phone Zahira Marrufo DO Primary Care Provider +1- [phone] Encounter Details Date Type Department Care Team (Latest Contact Info) Description 02/21/2000 Outpatient Historical [facility] Medicine [place] 104 [facility] [address] [place] [phone] Marco Antonio Worthy DO NO ADDRESS ON FILE Anxiety state, unspecified (Primary Dx) Social History Tobacco Use Types Packs/Day Years Used Date Smoking Tobacco: Never Assessed Sex and Gender Information Value Date Recorded Sex Assigned at Not on file 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
--- OUTSIDE RECORDS SUMMARY | 2025-08-15 08:30 | XMS_ITS | Encounter Summary ---
Author Organization [facility] Address [address] [place] [address] Care Team Providers Care Keyboard Operator Name Role Phone Zahira Marrufo DO Primary Care Provider +1- [phone] Encounter Details Date Type Department Care Team (Latest Contact Info) Description 12/30/1999 Outpatient Historical [facility] Medicine [place] 104 [facility] [address] [place] [phone] Marco Antonio Worthy DO NO ADDRESS ON FILE Unspecified functional disorder of stomach (Primary Dx) Social History Tobacco Use Types Packs/Day Years Used Date Smoking Tobacco: Never Assessed Sex and Gender Information Value Date Recorded Sex Assigned at Not on file 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
--- OUTSIDE RECORDS SUMMARY | 2025-08-15 08:30 | XMS_ITS | Encounter Summary ---
Author Organization [facility] Address [address] [place] [address] Care Team Providers Care Geoscience Laboratory Technician Name Role Phone Zahira Marrufo DO Primary Care Provider [phone]- [phone] Encounter Details Date Type Department Care Team (Latest Contact Info) Description 08/01/2000 Outpatient Historical [facility] Medicine [place] [address] [facility] [address] [place] [phone] Marco Antonio Worthy DO NO ADDRESS ON FILE Lumbago (Primary Dx); Backache, unspecified Social History Tobacco Use Types Packs/Day Years Used Date Smoking Tobacco: Never Assessed Sex and Gender Information Value Date Recorded Sex Assigned at Not on file 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
--- OUTSIDE RECORDS SUMMARY | 2025-08-15 08:30 | XMS_ITS | Encounter Summary ---
Author Organization [facility] Address [address] [place] [address] Care Team Providers Care Sharepoint Net Developer Name Role Phone Zahira Marrufo DO Primary Care Provider [phone] Encounter Details Date Type Department Care Team (Latest Contact Info) Description 08/16/1998 Outpatient Historical [facility] Medicine [place] 104 [facility] [address] [place] [phone] Duarte Saldivar MD [address] [facility] [address] [place] [phone] Unspecified gastritis and gastroduodenitis without mention of hemorrhage (Primary Dx); Pain in joint, shoulder region Social History Tobacco Use Types Packs/Day Years Used Date Smoking Tobacco: Never Assessed Sex and Gender Information Value Date Recorded Sex Assigned at Not on file 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
--- OUTSIDE RECORDS SUMMARY | 2025-08-15 08:30 | XMS_ITS | Clinical Summary ---
Author Organization [facility] Address [address] [place] [address] Care Team Providers Care Eclectic Doctor Name Role Phone Mtnv, External Provider Primary Care Provider Un available Allergies Active Allergy Reactions Criticality Noted Date Comments Codeine Anxiety Low 09/19/2019 Sulfamethoxazole-Trimethoprim Nausea and Vomiting Low 10/30/2014 Medications perphenazine (TRILAFON) 2 mg tablet TAKE 1 TABLET(2 MG) BY MOUTH TWICE DAILY 180 Tablet 1 9 Active Additional Information Patient taking differently: 2 mg Oral DAILY, Reported on 12/14/2023 pantoprazole (PROTONIX) 40 mg Tablet, Delayed Release (E.C.)Indication s:Gastroesophage al reflux disease without esophagitis Take 40 mg by mouth daily. 1 Active triamcinolone acetonide (KENALOG) 0.1 % CreamIndications :Eczema Apply to affected area 2 times daily. 80 Gram 6 1 Active atenoloL (TENORMIN) 100 mg tabletIndication s:Essential hypertension Take 1 Tablet (100 mg) by mouth 2 times daily. 180 Tablet 4 1 Active amitriptyline (ELAVIL) 50 mg tabletIndication s:Primary insomnia,Anxiety state Take 1 Tablet (50 mg) by mouth daily. 90 Tablet 1 1 Active Additional Information Patient taking differently: 25 mgOral DAILY, Reported on 12/14/2023 atorvastatin calcium (ATORVASTATIN ORAL) Take 40 mg by mouth daily. Active HYDROCHLOROTHIAZ ESME 25 mg tabletIndication s:Essential hypertension TAKE 1 TABLET(25 MG) BY MOUTH DAILY 90 Tablet 4 2 Active metFORMIN (GLUCOPHAGE) 500 mg tablet TAKE 1 TABLET(500 MG) BY MOUTH TWICE DAILY WITH MEALS 180 Tablet 4 2 Active cloNIDine HCL (CATAPRES) 0.1 mg tabletIndication s:Essential hypertension TAKE 1 TABLET(0.1 MG) BY MOUTH THREE TIMES DAILY 270 Tablet 4 2 Active amLODIPine (NORVASC) 10 mg tabletIndication s:Essential hypertension TAKE 1 TABLET(10 MG) BY MOUTH DAILY 30 Tablet 3 Active lisinopriL (PRINIVIL) 40 mg tabletIndication s:Essential hypertension TAKE 1 TABLET(40 MG) BY MOUTH TWICE DAILY 30 Tablet 3 Active HYDROcodone-acet aminophen (NORCO) 5-325 mg tabletIndication s:Urinary retention Take 1-2 Tablets by mouth every 6 hours as needed for Pain. Max Daily Amount: 8 Tablets 30 Tablet 4 Active sertraline (ZOLOFT) 50 mg tablet Take 50 mg by mouth daily. Active tamsulosin (FLOMAX) 0.4 mg capsule Take 0.8 mg by mouth daily. Active finasteride (PROSCAR) 5 mg tablet Take 5 mg by mouth daily. Active Active Problems Problem Noted Date Diagnosed Date Primary insomnia 11/27/2021 Type 2 diabetes mellitus wit hout complication, without long-term current use of insulin 11/27/2021 Obstructive sleep apnea syndrome 02/06/2021 Gastroesophageal reflux disease without esophagi tis 02/06/2021 Severe obesity (BMI 35.0-39.9) with comorbidity 10/03/2019 Chewing tobacco dependence 12/10/2015 Eczema 07/23/2011 Mixed hyperlipidemia 07/23/2011 Generalized anxiety disorder 07/23/2011 Essential hypertension 07/23/2011 Encounters Date Type Department Care Team Description 08/11/2025 External Device Data ST[facility] ABSTRACTION Provider, Abstract 07/15/2025 External Device Data [facility] ABSTRACTION Provider, Abstract from Last 3 Months Immunizations Immunization Administration Dates Next Due (PREVNAR 13)(6 WKS UP) PNEUM OCOCCAL CONJUGATE (PCV13) 0.5 ML, IM 11/05/2020 (SHINGRIX)(50 YRS UP) ZOSTER VACCINE RECOMBINANT, 0.5 ML, IM 02/17/2021,11/05/2020 Influenza Seasonal Unspecified Formulation IM PREVNAR (PCV13) pneumococcal 13-valent conjugate Vaccine 11/05/2020 Social History Tobacco Use Types Packs/Day Years Used Date Smoking Tobacco: Former Cigarettes Smokeless Tobacco: Current Tobacco Cessation:Ready to Q uit: Not Asked; Counseling Given: Not Answered Alcohol Use Standard Drinks/Week Comments Not Currently [...] on file 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 Gender Identity Not on file Sexual Orientation Not on file Last Filed Vital Signs Vital Sign Reading Time Taken Comments Blood Pressure 162/62 03/18/2024 10:45 AM CDT Pulse 59 03/18/2024 10:45 AM CDT Temperature 36.6 C (97.8 F) 03/18/2024 10:45 AM CDT Respiratory Rate 16 03/18/2024 10:45 AM CDT Oxygen Saturation 99% 03/18/2024 10:45 AM CDT Inhaled Oxygen Concentration - - Weight 94.5 kg (208 lb 6.4 oz) 03/18/2024 7:18 A M CDT Height 167.6 cm (5' 6 ) 03/18/2024 7:18 AM CDT Body Mass Index 33.64 03/18/2024 7:18 AM CDT Plan of Treatment Health Maintenance Due Date Last Done Comments DIABETES ANNUAL FOOT EXAM 1972 DIABETES ANNUAL RETINAL EXAM 1972 DIABETES MICROALBUMIN ANNUAL SCREEN 1972 DTAP/TDAP/TD VACCINES (1 - Tdap) 1973 FIT-DNA Q 3 years 1999 FIT/FOBT Q 1 year 1999 Flex Sig/CT Colonography Q 5 years 1999 RSV VACCINE (60+ or ) (1 - Risk 60-74 years 1-dose series) 2014 PNEUMOCOCCAL VACCINE 50+ YEA RS (2 of 2 - PPSV23, PCV20, or PCV21) 12/31/2020 11/05/2020, 11/05/2020 DIABETES HBA1C Q 6 MONTHS 04/20/20222020, 07/08/2021, 11/22/2020, Additional history exists LDL CHOLESTEROL ANNUAL 07/08/2022 07/08/2021, 2019 INFLUENZA VACCINE (#1) 2025 2, 11/10/2021, 08/26/2021 COLORECTAL SCREENING 12/27/2030 12/27/2020, 12/27/19 21 Colorectal Cancer Screening 12/27/2030 ZOSTER VACCINE Completed 02/17/2021, 11/05/2020 Procedures Procedure Name Priority Date/Time Associated Diagnosis Comments HEMOGLOBIN A1C Routine 10/21/2021 LIPID PANEL Routine 07/08/2021 10:43 AM CDT Mixed hyperlipidemia ENDOSCOPY, COLON, SCREENING 12/27/2020 12:00 AM GRANULATING MACHINE OPERATOR from Last 3 Months or Most Recently Relevant to Health Maintenance Results * HEMOGLOBIN A1C (10/21/2021) ABSTRACTED HGB A1C 6.4 EXTERNAL LAB Blood 10/21/2021 us Abstract Provider CHEMISTRY ORDERABLES Final Res ult EXTERNAL LAB * (ABNORMAL) LIPID PANEL (07/08/2021 10:43 AM CDT) CHOLESTEROL 111 <200 mg/dL [facility] HDL 33(L) > OR = 40 mg/dL [facility] TRIGLYCERIDE 150(H) <150 mg/dL [facility] LDL CALCULATED 55 mg/dL (calc) [facility] Comment: Reference range: <100 Desirable range <100 mg/dL for primary prevention; <70 mg/dL for patients with CHD or diabetic patients with > or = 2 CHD risk factors. LDL-C is now calculated using the Candis calculation, which is a validated novel method providing better accuracy than the Friedewald equation in the estimation of LDL-C. Michael SS et al. ASPEN. 2013;310(19): 4399-2503 (http://education.bettercodes.org/faq/FZO357) CHOL/HDL RATIO 3.4 <5.0 (calc) [facility] TOTAL NON-HDL CHOL(LDL+VLDL) 78 <130 mg/dL (calc) [facility] Comment: For patients with diabetes plus 1 major ASCVD risk factor, treating to a non-HDL-C goal of <100 mg/dL (LDL-C of <70 mg/dL) is considered a therapeutic option. [facility]formed [facility] [address] [place] [address] Jorgito Reyez D.O., MPH Blood 07/08/2021 10:4 3 AM CDT 07/09/2021 4:45 AM CDT Kamini Harris PRINT OPERATOR CHEMISTRY ORDERABLES Fin al Result [facility] [address] [place] [address] * ENDOSCOPY, COLON, SCREENING (12/27/2020 12:00 AM GRANULATING MACHINE OPERATOR) Zahira Marrufo DO GI PROCEDURE ORDERABLES Kolby patel Result - Final from Last 3 Months or Most Recently Relevant to Health Maintenance Insurance [facility] MEDICARE BCBS MEDICARE HMO Care Teams Eclectic Doctor Relationship Specialty Start Date End Date Mtnv, External Provider [address] [place] [address] PCP - General Family Practice 12/14/23
--- OUTSIDE RECORDS SUMMARY | 2025-08-15 08:30 | XMS_ITS | Encounter Summary ---
Author Organization [facility] Address [address] [place] [address] Care Team Providers Care Sports Director Name Role Phone Zahira Marrufo DO Primary Care Provider +1- [phone] Encounter Details Date Type Department Care Team (Latest Contact Info) Description 11/03/1998 Outpatient Historical [facility] Medicine [place] [address] [facility] [address] [place] [phone] Marco Antonio Worthy DO NO ADDRESS ON FILE Unspecified hemorrhoids without mention of complication (Primary Dx); Allergic rhinitis, cause unspecified Social History Tobacco Use Types Packs/Day Years Used Date Smoking Tobacco: Never Assessed Sex and Gender Information Value Date Recorded Sex Assigned at Not on file 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
--- OUTSIDE RECORDS SUMMARY | 2025-08-15 08:30 | XMS_ITS | Encounter Summary ---
Author Organization [facility] Address [address] [place] [address] Care Team Providers Care Yarder Operator Name Role Phone Zahira Marrufo DO Primary Care Provider +1- [phone] Encounter Details Date Type Department Care Team (Latest Contact Info) Description 01/17/2000 Outpatient Historical [facility] Medicine [place] [address] [facility] [address] [place] [phone] Marco Antonio Worthy DO NO ADDRESS ON FILE Irritable bowel syndrome (Primary Dx); Depressive disorder, not elsewhere classified Social History Tobacco Use Types Packs/Day Years Used Date Smoking Tobacco: Never Assessed Sex and Gender Information Value Date Recorded Sex Assigned at Not on file 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
--- OUTSIDE RECORDS SUMMARY | 2025-08-15 08:30 | XMS_ITS | Encounter Summary ---
Author Organization [facility] Address [address] [place] [address] Care Team Providers Care Slice Plug Cutter Operator Helper Name Role Phone Zahira Marrufo DO Primary Care Provider +1- [phone] Encounter Details Date Type Department Care Team (Latest Contact Info) Description 08/20/2000 Outpatient Historical [facility] Medicine [place] 104 [facility] [address] [place] [phone] Marco Antonio Worthy DO NO ADDRESS ON FILE Observation for unspecified suspected condition (Primary Dx) Social History Tobacco Use Types Packs/Day Years Used Date Smoking Tobacco: Never Assessed Sex and Gender Information Value Date Recorded Sex Assigned at Not on file 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
--- OUTSIDE RECORDS SUMMARY | 2025-08-15 08:30 | XMS_ITS | Encounter Summary ---
Author Organization [facility] Address [address] [place] [address] Care Team Providers Care Oyster Unloader Name Role Phone Zahira Marrufo DO Primary Care Provider +1- [phone] Encounter Details Date Type Department Care Team (Latest Contact Info) Description 08/13/2000 Outpatient Historical [facility] Medicine [place] [address] [facility] [address] [place] [phone] Marco Antonio Worthy DO NO ADDRESS ON FILE Inflamed seborr keratos (Primary Dx) Social History Tobacco Use Types Packs/Day Years Used Date Smoking Tobacco: Never Assessed Sex and Gender Information Value Date Recorded Sex Assigned at Not on file 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
--- OUTSIDE RECORDS SUMMARY | 2025-08-15 08:30 | XMS_ITS | Encounter Summary ---
Author Organization [facility] Address [address] [place] [address] Care Team Providers Care Deicer Tester Name Role Phone Zahira Marrufo Primary Care Provider Encounter Details Date Type Department Care Team (Late st Contact Info) Description 08/19/2014 Ancillary Orders [facility] Admitting [address] [place] [address] Jun Sr., GABY Vallejo [address] [place] [address] Chronic cough (Primary Dx); SOB (shortness of breath) Social History Tobacco Use Types Packs/Day Years Used Date Smoking Tobacco: Never Smokeless Tobacco: Current Alcohol Use Standard Drinks/Week Comments Yes 0 (1 standard drink = 0.6 oz pur e alcohol) occasional Sex and Gender Information Value Date Recorded Sex Assigned at Not on file 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 There is mild hyperinflation. Cardiomediastinal silhouette is upper limits of normal in size. No pulmonary congestion or pleural effusion is seen. On the lateral view, no infiltrate or spine sign is seen. Costophrenic angles are blunted by hyperinflation posteriorly. IMPRESSION no acute infiltrate or congestion seen Procedure Note Humphrey Monterroso MD - 08/19/2014 PROCEDURE XR CHEST, 2 views 19 August 2014 COMPARISON Current: PA and lateral chest Prior: no previous studies available for comparison DESCRIPTION Frontal view of the chest shows no infiltrate or atelectasis. There is mild hyperinflation. Cardiomediastinal silhouette is upper limits of normal in size. No pulmonary congestion or pleural effusion is seen. On the lateral view, no infiltrate or spine sign is seen. Costophrenic angles are blunted by hyperinflation posteriorly. IMPRESSION no acute infiltrate or congestion seen Matheus Barahona Sr., PLASTIC DESIGN APPLIER DIAGNOSTIC IMAGIN G ORDERABLES Final Result documented in this encounter Visit Diagnoses Diagnosis Chronic cough- Primary Cough SOB (shortness of breath) Shortness of breath Chronic cough Cough SOB (shortness of breath) Shortness of breath documented in this encounter Care Teams Deicer Tester Relationship Specialty Start Date End Date Zahira Marrufo DO [address] [place] [address] PCP - General Family Practice 12/30/20 documented as of this encounter
--- OUTSIDE RECORDS SUMMARY | 2025-08-15 08:30 | XMS_ITS | Encounter Summary ---
Author Organization [facility] Address [address] [place] [address] Care Team Providers Care Agricultural Specialist Name Role Phone Zahira Marrufo DO Primary Care Provider +1- [phone] Encounter Details Date Type Department Care Team (Latest Contact Info) Description 03/26/2000 Outpatient Historical [facility] Medicine [place] 104 [facility] [address] [place] [phone] Duarte Saldivar MD [address] [phone] Acute sinusitis, unspecified (Primary Dx) Social History Tobacco Use Types Packs/Day Years Used Date Smoking Tobacco: Never Assessed Sex and Gender Information Value Date Recorded Sex Assigned at Not on file 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
--- OUTSIDE RECORDS SUMMARY | 2025-08-15 08:30 | XMS_ITS | Encounter Summary ---
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
--- NOTE | 2025-08-15 08:34 | PC.NURSE ---
glucose via FS 267
[2025-08-15 08:51] LABS: Hematocrit 42.5 % (37-53); Hemoglobin 14.90 g/dL (11.27-16.99); Mean Corpuscular HGB Conc 35.1 g/dL (30-55); Mean Corpuscular Hemoglobin 30.4 pg (27-33); Mean Corpuscular Volume 86.7 fl (82-101); Nucleated Red Blood Cells % 0 %; Platelet Count 198 10^3/cmm (157-399); Red Blood Count 4.90 10^6/uL (3.85-5.65); White Blood Count 12.20 10^3/uL (3.29-11.43)
[2025-08-15 08:56] LABS: INR 0.85 (0.8-1.2); Prothrombin Time 12.30 SECONDS (12.1-14.9)
--- NOTE | 2025-08-15 08:56 | ECG_ITS ---
[email or web address] Test Date: 2025-08-15 Pat Name: Cj Stokes Department: Room: Gender: Male Skip Miner Blasting: : 1955 Requested By: Ishan Barry Order Number: [id number] Javi MD: Blair Mccord M.D. Measurements Intervals [place] Rate: 63 P: 53 ID: [id number] QRS: 4 QRSD: 77 T: 245 QT: 404 QTc: 414 Interpretive Statements SINUS RHYTHM POSSIBLE LEFT ATRIAL ENLARGEMENT [-0.1mV P-WAVE IN V1/V2] ST DEVIATION AND MODERATE T-WAVE ABNORMALITY, CONSIDER LATERAL ISCHEMIA [-0.1+ mV T-WAVE IN I/aVL/V5/V6] ST DEVIATION AND MODERATE T-WAVE ABNORMALITY, CONSIDER INFERIOR ISCHEMIA [-0.1+ mV T-WAVE IN II/aVF] Compared to ECG 10/18/2021 23:11:01 Sinus bradycardia no longer present T-wave abnormality still present Possible ischemia still present Electronically Signed On 08-15-2025 13:02:42 CDT by Blair Mccord M.D. [email or web address]
[2025-08-15 08:57] LABS: Partial Thromboplastin Time 22.3 SECONDS (23.9-36.7)
[2025-08-15 09:00] LABS: Alanine Aminotransferase 42 U/L (0-41); Albumin Level 4.3 g/dL (3.5-5.2); Alkaline Phosphatase 86 U/L (40-130); Anion Gap 24.5 (5-19); Aspartate Amino Transferase 18 U/L (0-40); Blood Urea Nitrogen 12 mg/dL (8-23); Calcium 9.6 mg/dL (8.5-10.5); Carbon Dioxide 20 mmol/L (22-29); Chloride 94 mmol/L (98-107); Globulin 3.0 g/dL (1.3-4.6); Glucose 244 mg/dL (65-115); Osmolality Calculated 286 mOsm/kg (285-295); Potassium 4.5 mmol/L (3.5-5.1); Sodium 134 mmol/L (136-145); Total Protein 7.3 g/dL (6.6-8.7)
--- NOTE | 2025-08-15 09:01 | W.ED.NEUROSD ---
HPI - Neuro Symptoms/Deficit General: Chief Complaint: Neuro Symptoms/Deficit Stated Complaint: stroke like symptoms Time Seen by Provider: 08/15/25 08:25 Source: patient and family Mode of arrival: ambulatory History of Present Illness: 70-year-old male who states she last seen him normal last night at 10 PM. She states he woke up this morning and he was unable to walk had some right leg weakness also was having word salad and slurred speech. Said no history of stroke in the past patient does have word salad slurred speech here. He is able to tell me his name and follow commands. No recent illness denies any headache Associated symptoms: Deny chest pain, headache(s), nausea or vomiting Related Data Home Medications ?Medication ?Instructions ?Recorded ?Confirmed ibuprofen 200 mg capsule 200 mg PO Q6H PRN Pain 12/27/23 08/15/25 finasteride 5 mg tablet 5 mg PO DAILY 09/18/24 08/15/25 atenolol 100 mg tablet 100 mg PO DAILY 07/15/25 08/15/25 amitriptyline 25 mg tablet 25 mg PO BEDTIME 08/15/25 08/15/25 hydrocodone 7.5 mg-acetaminophen 1 tab PO Q4H PRN Pain 08/15/25 08/15/25 325 mg tablet omeprazole 40 mg capsule,delayed 40 mg PO DAILY 08/15/25 08/15/25 release Previous Rx's ?Medication ?Instructions ?Recorded blood-glucose sensor (Dexcom G6 #3 ea 02/07/24 Sensor device) blood-glucose,grader patrol,cont #1 ea 02/07/24 (Dexcom G6 Policy Advisor) atorvastatin 40 mg tablet 40 mg PO DAILY #90 tabs 10/07/24 lisinopril 40 mg tablet 40 mg PO BID #180 tabs 10/07/24 lorazepam 0.5 mg tablet (Ativan) 0.5 mg PO DAILY PRN anxiety #30 10/07/24 tabs perphenazine 2 mg tablet 2 mg PO DAILY #90 tabs 12/09/24 clonidine HCl 0.2 mg tablet 0.2 mg PO TID #270 tabs 02/04/25 tamsulosin 0.4 mg capsule 0.8 mg (2 x 0.4 mg) PO Q24H #180 02/04/25 caps amlodipine 10 mg tablet 10 mg PO DAILY #90 tabs 03/09/25 cpap #1 ea 04/01/25 metformin 500 mg tablet 500 mg PO BID #180 tabs 06/03/25 levothyroxine 75 mcg tablet 75 mcg PO DAILY #30 tabs 07/17/25 (Synthroid) Allergies Allergy/AdvReac Type Severity Reaction Status Date / Time codeine Allergy Mild makes pt Verified 08/13/25 08:25 feel anxious Review of Systems Const: Denies: fever(s) or chills Card: Denies: chest pain Resp: Denies: dyspnea GI: Denies: abdominal pain, nausea, vomiting or diarrhea Neuro: Reports: difficulty walking and Slurred speech present; Denies: headache(s) PFSH ED PFSH: Medical History Adverse effect of drug/medicinal Tobacco abuse, in remission Right hip pain Traumatic partial tear of left biceps tendon Hyponatremia Nausea Colon polyps Sleep apnea Diabetes Dyslipidemia Primary insomnia Anxiety Anxiety about health Hypertension Surgical History H/O esophagogastroduodenoscopy (12/27/20) 2016 Status post colonoscopy (12/27/20) 2016 Hx of shoulder surgery left knee X2 Hx of knee surgery left shoulder Family History Other Cancer Social History Smoking and tobacco/nicotine status: never used tobacco/nicotine Alcohol intake: current Alcohol intake frequency: holidays/special occasions only Substance/Drug Use: never Lives independently: Yes Household members: spouse Marital status: Current occupational status: retired NIH stroke score NIHSS: Level Of Consciousness - 1a: 0 Level Of Consciousness Questions - 1b: Both Correct Level Of Consciousness Commands - 1c: Both Correct Best Gaze - 2: Normal Visual Silva - 3: No Visual Loss Facial Palsy - 4: Normal Motor Arm Right - 5: No Drift Motor Arm Left - 5: No Drift Motor Leg Right - 6: Drift Motor Leg Left - 6: No Drift Limb Ataxia - 7: Absent Sensory - 8: Normal Best Language - 9: Mild/Moderate Aphasia Dysarthia - 10: Mild/Moderate Dysarthia Extinction And Inattention - 11: 0 Score: Total Score: 3 Physical Exam Const: COMMON NORMALS: no acute distress, patient oriented x3 and healthy appearing HENMT: COMMON NORMALS: normocephalic and atraumatic HEAD & SCALP: normocephalic and atraumatic Eye: COMMON NORMALS: Equal, round and reactive pupils present and EOMs intact bilaterally PUPIL: Yes Equal, round and reactive pupils present Neck/C-Spine: COMMON NORMALS: full ROM and supple Chest: COMMONS NORMALS: normal inspection of the chest Resp: COMMON NORMALS: normal respiratory effort, No retractions, No use of accessory muscles and clear to auscultation bilaterally AUSCULTATION: clear to auscultation bilaterally Cardio: COMMON NORMALS: regular rate, regular rhythm and No murmurs present (Cardio) RATE: regular rate RHYTHM: regular rhythm Extremity: COMMON NORMALS: normal to inspection and full ROM Neuro: COMMON NORMALS: patient oriented x3 OTHER: right leg weakness slurred speech Psych: COMMON NORMALS: Normal thought process present and cooperative THOUGHT PROCESS: Normal thought process present Skin: COMMON NORMALS: no rashes or lesions noted and no wounds GENERAL SKIN EXAM: no rashes or lesions noted Course Vital Signs: Vital signs: Vital Signs Temperature 98.1 F 08/15/25 08:31 Pulse Rate 65 08/15/25 09:21 Respiratory Rate 22 H 08/15/25 09:21 Blood Pressure 216/95 08/15/25 09:36 Pulse Oximetry 97 08/15/25 09:21 Oxygen Delivery Me thod Room Air 08/15/25 08:31 MDM - Neuro Symptoms/Deficit Medical Decision Making 70-year-old male who is here with CVA. Patient NIH is 3 CT scan along with CTA showed no acute findings. He is outside the window his last known normal was 10 AM so he is not a TNKase candidate. No signs of a large vessel occlusion either. Did review lab and CT findings with patient and his spoke to the hospitalist Dr. Luna and will admit at this time. Medical Records I reviewed the patient's medical records. Lab Data I reviewed the patient's lab results. 08/15/25 08:29 08/15/25 08:29 Radiology Impressions Chest X-Ray 08/15/25 08:26 IMPRESSION: No acute pulmonary disease. Head CT 08/15/25 08:26 IMPRESSION: Negative for acute intracranial pathology. ASSESSMENT: ASPECTS ([place] Stroke Program Early CT Score) is 10. ADDENDUM: 08/15/2550 Findings were confirmed by telephone with LIZETH LEE at 08/15/2025 8:48 AM CDT. Head/Neck CTA 08/15/25 08:26 IMPRESSION: No large vessel occlusion. IMPRESSION: No artery carotid artery stenosis or occlusion. REFERENCES: NASCET CRITERIA. The degree of stenosis in the cervical segment of the internal carotid artery is based on NASCET criteria. Normal is no stenosis. Mild is less than 50% stenosis. Moderate is 50-69% stenosis. Severe is 70% to 99% stenosis. Total occlusion is no detectable patent lumen. ADDENDUM: 08/15/25925 Findings were confirmed by telephone with LIZETH LEE at 08/15/2025 9:25 AM CDT. Laboratory Results WBC 12.20 10^3/uL (3.29-11.43) H 08/15/25 08:29 RBC 4.90 10^6/uL (3.85-5.65) 08/15/25 08:29 Hgb 14.90 g/dL (11.27-16.99) 08/15/25 08:29 Hct 42.5 % (37-53) 08/15/25 08:29 MCV 86.7 fl (82-101) 08/15/25 08:29 MCH 30.4 pg (27-33) 08/15/25 08:29 MCHC 35.1 g/dL (30-55) 08/15/25 08:29 RDW 13.2 % (12.1-15.1) 08/15/25 08:29 Plt Count 198 10^3/cmm (157-399) 08/15/25 08:29 MPV 10.0 fL (7.4-10.4) 08/15/25 08:29 Neut % (Auto) 81.0 % 08/15/25 08:29 Lymph % (Auto) 15.2 % 08/15/25 08:29 Woodson % (Auto) 2.0 % 08/15/25 08:29 Eos % (Auto) 0.6 % 08/15/25 08:29 Baso % (Auto) 0.5 % 08/15/25 08: Neut # (Auto) 9.89 10^3/uL (1.8-7.7) H 08/15/25 08: Lymph # (Auto) 1.9 10^3/uL (0.8-4.8) 08/15/25 08: Woodson # (Auto) 0.2 10^3/uL (0.2-0.9) 08/15/25 08: Eos # (Auto) 0.1 10^3/uL (0.0-0.8) 08/15/25 08: Baso # (Auto) 0.1 10^3/uL (0.0-0.1) 08/15/25 08: Nucleated RBC % (auto) 0 % 08/15/25 08: Nucleated RBCs # 0.0 /100WBC 08/15/25 08: PT 12.30 SECONDS (12.1-14.9) 08/15/25 08: INR 0.85 (0.8-1.2) 08/15/25 08: APTT 22.3 SECONDS (23.9-36.7) L 08/15/25 08: Sodium 134 mmol/L (136-145) L 08/15/25 08: Potassium 4.5 mmol/L (3.5-5.1) 08/15/25 08: Chloride 94 mmol/L (98-107) L 08/15/25 08: Carbon Dioxide 20 mmol/L (22-29) L 08/15/25 08: Anion Gap 24.5 (5-19) H 08/15/25 08: BUN 12 mg/dL (8-23) 08/15/25 08: Creatinine 1.4 mg/dL (0.7-1.2) H 08/15/25 08: GFR Calculation Not Reportable 08/15/25 08: Glucose 244 mg/dL (65-115) H 08/15/25 08: Calculated Osmolality 286 mOsm/kg (285-295) 08/15/25 08: Calcium 9.6 mg/dL (8.5-10.5) 08/15/25 08: Total Bilirubin 0.4 mg/dL (0.15-1.2) 08/15/25 08:29 AST 18 U/L (0-40) 08/15/25 08:29 ALT 42 U/L (0-41) H 08/15/25 08:29 Alkaline Phosphatase 86 U/L (40-130) 08/15/25 08:29 Total Protein 7.3 g/dL (6.6-8.7) 08/15/25 08:29 Albumin 4.3 g/dL (3.5-5.2) 08/15/25 08:29 Globulin 3.0 g/dL (1.3-4.6) 08/15/25 08:29 Amorphous Sediment Not Reportable 08/15/25 09:22 All radiology interpretation(s) finalized by discharge EKG Data EKG 1: I personally reviewed and interpreted this EKG as follows: EKG interpretation date: 08/15/25 EKG interpretation time: 08:56 Interpretation: nsr hr [address] elevation qrs 77 qtc 410 Discharge Plan Discharge Patient Disposition: Admitted As Inpatient Clinical Impression: Cerebrovascular accident Condition: Stable Coding Level of Care Code ED Finishing Supervisor for Eyal Khan
[2025-08-15 09:38] LABS: Glucose Urine UA Trace (Normal); Nitrate Urine Negative (Negative)
--- NOTE | 2025-08-15 09:40 | PC.PHAR ---
Spouse states pts' provider took him off of 2 of his bp medications. Pt is unable to verify what he has stopped.
[2025-08-15 09:43] LABS: Add Urine Microscopic? YES
[2025-08-15 09:45] LABS: PCP Screen Urine Negative (Negative)
[2025-08-15 09:47] LABS: Specific Gravity, Urine 1.050 (1.005-1.030)
--- NOTE | 2025-08-15 10:13 | USCV_ITS ---
Cj Stokes Age: 70 Gender: M : 1955 Exam Date: 08/15/2025 12:37 Ordering Phys: Ahsan Calabrese MD Technologist: Remy Worthy Exam Location: [facility] [place] Indication: cva BP: 191 / 105 HR: 54 Rhythm: Sinus Technical Quality: Adequate MEASUREMENTS (Male / Female) Normal Values 2D ECHO LV Diastolic Diameter PLAX 4.8 cm 4.2 - 5.9 / 3.9 - 5.3 cm IVS Diastolic Thickness 1.3 cm 0.6 - 1.0 / 0.6 - 0.9 cm IVS Systolic Thickness 1.8 cm LVPW Diastolic Thickness 1.9 cm 0.6 - 1.0 / 0.6 - 0.9 cm LVPW Systolic Thickness 2.1 cm LVOT Diameter 2.0 cm LV Ejection Fraction 2D Teich 76.7 % LV Ejection Fraction MOD 4C 71.5 % LV Ejection Fraction MOD 2C 83.0 % LV Ejection Fraction 2C AL 82.7 % LA Diameter 4.1 cm RA Systolic Volume 4C AL 27.3 ml RA Systolic Volume 4C MOD 27.5 ml LA Sys Volume AL 55.6 cm cubed LA Sys Volume Index AL 24.8 cm cubed/m squared Aorta at Sinotubular Diameter 2.1 cm M-MODE LA Ao Ratio MM 1.5 AV Cusp Separation MM 2.0 cm DOPPLER AV Peak Velocity 177.3 cm/s LVOT Peak Velocity 116.0 cm/s AV Area Cont Eq vti 2.0 cm squared AV Area Cont Eq pk 2.1 cm squared MV Peak Velocity 131.0 cm/s MV Area PHT 3.4 cm squared Mitral E to A Ratio 0.6 TV Peak Velocity 421.0 cm/s TR Peak Velocity 424.0 cm/s TR Peak Gradient 71.9 mmHg TR Mean Velocity 364.0 cm/s TR Mean Gradient 54.7 mmHg TR Velocity Time Integral 158.5 cm PV Peak Velocity 113.0 cm/s RV Ejection Time 0.3 s FINDINGS Left Ventricle Normal left ventricular size and systolic function, EF 71%.no regional wall motion abnormalities. . Mild left ventricular hypertrophy. Right Ventricle The right ventricle is normal in size and function. Right Atrium The right atrium is normal in size. Left Atrium Linear echodensity in the lateral wall of the left atrium, most likely a percent Coumadin ridge Mitral Valve Moderate mitral annular calcification. Aortic Valve Thickened aortic valve. Mild aortic valve calcification. Tricuspid Valve No gross abnormalities noted Pulmonic Valve Trace pulmonary valve regurgitation. Pericardium No pericardial effusion. Aorta Normal aortic annulus size. IVC Normal inferior vena cava. CONCLUSIONS Normal left ventricular size and systolic function, EF 71%.no regional wall motion abnormalities. . Mild left ventricular hypertrophy. Linear echodensity in the lateral wall of the left atrium, most likely a represent Coumadin ridge. Moderate mitral annular calcification. Thickened aortic valve. Mild aortic valve calcification. No obvious intracardiac masses There is no pericardial effusion. Dr Rashad Raman MD FACC (Electronically Signed) Final Date: 15 August 2025 14:35 S
--- NOTE | 2025-08-15 10:14 | PM.HP ---
Providers/Chief Complaint Primary Care Provider: Ede Cervantes MD Chief Complaint: stroke like symptoms History of Present Illness Cj Stokes is a 70 year old male with a past medical history of hypertension, hyperlipidemia, obesity, type 2 diabetes, sleep apnea, who presents to [facility] for right leg weakness, word salad, slurred speech. Currently patient is alert to person, to place, not to time, he can follow commands, does have productive aphasia, does have receptive aphasia does have words salad. During my examination I cannot discern any significant weakness of upper extremities, nor can I discern any significant weakness of the right leg, I have his NIH stroke scale at about 3, patient was not a tPA candidate last known well normal according to ER provider was last night at about 9 PM, no large vessel occlusions or lesions amenable to thrombectomy. According to patient's Cj was having some slurring of his words, word finding difficulty and yesterday afternoon, he was texting nonsensical things to his friends, she also noticed that he had slurring of his words yesterday afternoon, he was unsteady on his feet, she did not notice any slurring of his words, but he was off, and so she also noticed the symptoms last night, and he went to bed at 9 PM, but this morning, when they awoken, he had significant receptive and productive aphasia which prompted patient to come to the emergency room, no history of atrial fibrillation does have sleep apnea Review of Systems Card: Denies: chest pain Resp: Denies: dyspnea Medications/Allergies Home Medications ?Medication ?Instructions ?Recorded ?Confirmed ?Last Taken ?Type ibuprofen 200 mg capsule 200 mg PO Q6H PRN Pain 12/27/23 08/15/25 Unknown History blood-glucose sensor (Dexcom G6 #3 ea 02/07/24 08/15/25 Unknown Rx Sensor device) blood-glucose,personal lines agent,cont #1 ea 02/07/24 08/15/25 Unknown Rx (Dexcom G6 Electrician Master) finasteride 5 mg tablet 5 mg PO DAILY 09/18/24 08/15/25 08/15/25 History atorvastatin 40 mg tablet 40 mg PO DAILY #90 tabs 10/07/24 08/15/25 08/14/25 Rx lisinopril 40 mg tablet 40 mg PO BID #180 tabs 10/07/24 08/15/25 08/15/25 Rx lorazepam 0.5 mg tablet (Ativan) 0.5 mg PO DAILY PRN anxiety #30 10/07/24 08/15/25 Unknown Rx tabs perphenazine 2 mg tablet 2 mg PO DAILY #90 tabs 12/09/24 08/15/25 08/15/25 Rx clonidine HCl 0.2 mg tablet 0.2 mg PO TID #270 tabs 02/04/25 08/15/25 08/15/25 Rx tamsulosin 0.4 mg capsule 0.8 mg (2 x 0.4 mg) PO Q24H #180 02/04/25 08/15/25 08/15/25 Rx caps amlodipine 10 mg tablet 10 mg PO DAILY #90 tabs 03/09/25 08/15/25 08/15/25 Rx cpap #1 ea 04/01/25 08/15/25 Unknown Rx metformin 500 mg tablet 500 mg PO BID #180 tabs 06/03/25 08/15/25 08/15/25 Rx atenolol 100 mg tablet 100 mg PO DAILY 07/15/25 08/15/25 08/15/25 History levothyroxine 75 mcg tablet 75 mcg PO DAILY #30 tabs 07/17/25 08/15/25 08/15/25 Rx (Synthroid) amitriptyline 25 mg tablet 25 mg PO BEDTIME 08/15/25 08/15/25 08/14/25 History hydrocodone 7.5 mg-acetaminophen 1 tab PO Q4H PRN Pain 08/15/25 08/15/25 Unknown History 325 mg tablet omeprazole 40 mg capsule,delayed 40 mg PO DAILY 08/15/25 08/15/25 Unknown History release Allergies Allergy/AdvReac Type Severity Reaction Status Date / Time codeine Allergy Mild makes pt Verified 08/13/25 08:25 feel anxious PFSH Acute PFSH: Medical History Adverse effect of drug/medicinal Tobacco abuse, in remission Right hip pain Traumatic partial tear of left biceps tendon Hyponatremia Nausea Colon polyps Sleep apnea Diabetes Dyslipidemia Primary insomnia Anxiety Anxiety about health Hypertension Surgical History H/O esophagogastroduodenoscopy (12/27/20) 2016 Status post colonoscopy (12/27/20) 2016 Hx of shoulder surgery left knee X2 Hx of knee surgery left shoulder Family History Other Cancer Social History Smoking and tobacco/nicotine status: never used tobacco/nicotine Alcohol intake: current Alcohol intake frequency: holidays/special occasions only Substance/Drug Use: never Lives independently: Yes Household members: spouse Marital status: Current occupational status: retired Vitals/I&O/Wt Last Vital Signs Temp 98.1 F 08/15/25 08:31 Pulse 65 08/15/25 09:21 Resp 22 H 08/15/25 09:21 BP 216/95 08/15/25 09:36 Pulse Ox 97 08/15/25 09:21 O2 Del Method Room Air 08/15/25 08:31 Physical Exam Const: COMMON NORMALS: no acute distress and patient oriented x3 Eye: COMMON NORMALS: Equal, round and reactive pupils present and EOMs intact bilaterally Resp: COMMON NORMALS: normal respiratory effort, No retractions, No use of accessory muscles and clear to auscultation bilaterally AUSCULTATION: clear to auscultation bilaterally Cardio: COMMON NORMALS: no JVD, regular rate, regular rhythm, S1 normal heart sound present and S2 normal heart sound present RATE: regular rate RHYTHM: regular rhythm HEART SOUNDS: S1 normal heart sound present and S2 normal heart sound present GI: COMMON NORMALS: Normal to inspection, nondistended, normoactive bowel sounds present, Soft to palpation and non-tender Extremity: COMMON NORMALS: no calf tenderness and no pedal edema Neuro: COMMON NORMALS: patient oriented x3, CN's II-XII intact bilaterally and moves all extremities OTHER: - Potentially very mild right facial droop - Right upper extremity strength is equal to the left, perhaps slight clumsiness of right hand - Good right lower extremity strength - [id number] slightly abnormal on the right - Does have significant word salad, receptive aphasia Psych: COMMON NORMALS: mental status grossly normal Data 08/15/25 08:29 08/15/25 08:29 A&P Assessment and plan 1. Acute CVA (cerebrovascular accident): 2. Hypertension: 3. Type 2 diabetes mellitus: 4. Hypothalamic hypothyroidism: 5. Hyperlipidemia: 6. Type 2 diabetes, HbA1c goal < 7%: Plan: Acute CVA -Concern for right-sided deficits, word salad, receptive aphasia CT head FINDINGS: Brain: There is moderate cerebral atrophy. Negative for acute intracranial hemorrhage. Negative for mass effect on the brain. Negative for midline shift of brain. There is mild diffuse heterogeneity of the white matter attenuation, consistent with chronic white matter ischemic changes. Cerebral ventricles: Mild ventriculomegaly. Paranasal sinuses: Visualized sinuses are unremarkable. No fluid levels. Mastoid air cells: Visualized mastoid air cells are well aerated. Bones: Unremarkable. No acute fracture. Soft tissues: Unremarkable. CTA head and neck FINDINGS: Right common carotid artery: No stenosis. No dissection or occlusion. Right internal carotid artery: No stenosis of the extracranial segment. No dissection or occlusion. Minor plaque formation near the bifurcation. Right external carotid artery: No occlusion or stenosis of the origin. Left common carotid artery: No stenosis. No dissection or occlusion. Left internal carotid artery: No stenosis of the extracranial segment. No dissection or occlusion. Minor plaque formation near the bifurcation. Left external carotid artery: No occlusion or stenosis of the origin. Right vertebral artery: No stenosis. No dissection or occlusion. Left vertebral artery: No stenosis. No dissection or occlusion. Soft tissues: Normal. No significant soft tissue swelling. Bones/joints: No acute fracture. CT/CT angio headneck* [id number] IMPRESSION: No large vessel occlusion. IMPRESSION: No artery carotid artery stenosis or occlusion. -Symptoms started 08/14/2025 in the afternoon around 2 PM -NIH stroke scale 3 -Currently has word salad, receptive aphasia, productive aphasia -Out of tPA window -Not a thrombectomy candidate Plan -Aspirin -Plavix -Statin -Telemetry monitoring -Cardiac echo -Permissive hypertension treat if systolic blood pressure greater than 220 or diastolic greater than 120 -Labetalol as needed ordered - Full code -Lovenox for DVT prophylaxis Hypertension, hold blood pressure medications, allow for permissive hypertension Hypothyroid Holick hypothyroidism, continue levothyroxine Type 2 diabetes mellitus, A1c, low-dose sliding scale PDMP PDMP Reviewed: Not Reviewed Attestations Medical Necessity Statement*: Patient requires hospitalization, inpatient, greater than 2 midnights for acute CVA Diagnoses Acute CVA (cerebrovascular accident) I63.9 Hypertension I10 Type 2 diabetes mellitus E11.9 Hypothalamic hypothyroidism E03.8 Hyperlipidemia E78.5 Type 2 diabetes, HbA1c goal < 7% E11.9
[2025-08-15 10:43] LABS: NT Pro B Type Natriuretic Pept 640 pg/mL (0-125)
--- NOTE | 2025-08-15 10:57 | ECG_ITS ---
[facility] Test Date: 2025-08-15 Pat Name: Cj Stokes Department: Room: Gender: Male Learning Coach: : 1955 Requested By: Ahsan Calabrese Order Number: [id number] Javi MD: Blair Mccord M.D. Measurements Intervals [place] Rate: 60 P: 36 GA: 159 QRS: 11 QRSD: 71 T: 34 QT: 398 QTc: 400 Interpretive Statements SINUS RHYTHM ST DEVIATION AND MODERATE T-WAVE ABNORMALITY, CONSIDER LATERAL ISCHEMIA [-0.1+ mV T-WAVE IN I/aVL/V5/V6] Compared to ECG 08/15/2025 08:56:57 No significant changes Electronically Signed On 08-15-2025 13:02:36 CDT by Blair Mccord M.D. [email or web address]
[2025-08-15 10:59] LABS: Troponin(5th) Baseline 36 ng/L (0-15)
[2025-08-15 11:03] LABS: Troponin 5 2HR 33.19 ng/L (0-15)
[2025-08-15 11:06] LABS: Troponin 5 2HR Delta -2.81 ABS# (0-10)
[2025-08-15 12:38] LABS: Estmated Average Glucose 151; Hemoglobin A1C 6.9 % (4.0-6.0)
[2025-08-15 12:44] LABS: Cholesterol 252 mg/dL (0-200); HDL Cholesterol 32 mg/dL (60-100); Thyroid Stimulating Hormone 1.77 uIU/mL (0.27-4.20); Triglycerides 582 mg/dL (0-150)
[2025-08-15] MEDS: pantoprazole 40 mg SDV IVP (13:25)
--- NOTE | 2025-08-15 13:27 | ECG_ITS ---
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 Measurements Intervals [place] Rate: 56 P: 28 IN: 152 QRS: 16 QRSD: 86 T: -88 QT: 453 QTc: 441 Interpretive Statements SINUS BRADYCARDIA ST DEVIATION AND MODERATE T-WAVE ABNORMALITY, CONSIDER LATERAL ISCHEMIA [-0.1+ mV T-WAVE IN I/aVL/V5/V6] ST DEVIATION AND MODERATE T-WAVE ABNORMALITY, CONSIDER INFERIOR ISCHEMIA [-0.1+ mV T-WAVE IN II/aVF] Compared to ECG 08/15/2025 10:57:44 Sinus rhythm no longer present T-wave abnormality still present Possible ischemia still present Electronically Signed On 08-15-2025 20:23:37 CDT by Rashad Raman M.D. [email or web address]
--- NOTE | 2025-08-15 14:40 | CTR_ITS ---
PROCEDURE INFORMATION: Exam: CT Head Without Contrast Exam date and time: 08/15/2025 2:59 PM Age: 70 years old Clinical indication: Other: Confusion; Had cta head/neck and non-head at 0831 today for speech problems now more confused TECHNIQUE: Imaging protocol: Computed tomography of the head without contrast. Radiation optimization: All CT scans at this facility use at least one of these dose optimization techniques: automated exposure control; mA and/or kV adjustment per patient size (includes targeted exams where dose is matched to clinical indication); or iterative reconstruction. COMPARISON: CT angio headneck* [id number] 08/15/2025 8:31 AM RADIATION DOSE METRICS: Total DLP (mGy-cm): 2319.14 FINDINGS: Brain: Unchanged appearance to symmetric cerebral white matter hypodensity, most consistent with chronic small-vessel ischemic disease. No new parenchymal abnormalities. Moderate cerebral volume loss again noted. No mass effect or midline shift. There is relative increased density of the intracranial vasculature and dural surfaces, likely reflecting the previous intravenous contrast administration. There is otherwise no evidence for intracranial hemorrhage. Cerebral ventricles: Moderate ventricular enlargement is unchanged. Paranasal sinuses: Small amount of mucosal thickening again noted in the left maxillary sinus and ethmoid air cells. Mastoid air cells: Visualized mastoid air cells are well aerated. Bones: Unremarkable. No acute fracture. Soft tissues: Unremarkable. CT/CT head wo con* [id number] IMPRESSION: 1. No interval change in the appearance the brain and no acute abnormality identified. 2. Intravascular hyperdensity reflecting previous intravenous contrast administration.
[2025-08-15 15:13] LABS: Troponin 5 6HR 33.22 ng/L (0-15)
[2025-08-15 15:18] LABS: Troponin 5 6HR Delta -2.78 ng/L (0-12)
[2025-08-15] MEDS: LORazepam 1 MG/0.5 ML injection IVP ×2 (15:27→16:23)
[2025-08-15] MEDS: haloperidol inj 5 mg/mL INJ 1 mL 2 MG IM (16:55)
[2025-08-16] VITALS (8 sets, daily range): BP systolic 174–216; BP diastolic 51–90; PULSE 67–72; RESP 16–18; TEMP 36.9–38.3; O2SAT 93–97; BMI 36.6
[2025-08-16] MEDS: haloperidol inj 5 mg/mL INJ 1 mL IM (00:34)
[2025-08-16 08:35] LABS: Hematocrit 40.8 % (37-53); Hemoglobin 13.90 g/dL (11.27-16.99); Mean Corpuscular HGB Conc 34.1 g/dL (30-55); Mean Corpuscular Hemoglobin 29.8 pg (27-33); Mean Corpuscular Volume 87.4 fl (82-101); Nucleated Red Blood Cells % 0 %; Platelet Count 148 10^3/cmm (157-399); Red Blood Count 4.67 10^6/uL (3.85-5.65); White Blood Count 12.51 10^3/uL (3.29-11.43)
--- NOTE | 2025-08-16 09:00 | MRR_ITS ---
PROCEDURE INFORMATION: Exam: MR Head Without Contrast Exam date and time: 08/16/2025 12:31 PM Age: 70 years old Clinical indication: Altered mental status/memory loss; Confusion or disorientation; Additional info: CVA TECHNIQUE: Imaging protocol: Magnetic resonance imaging of the head without contrast. COMPARISON: CT head wo con* [id number] 08/15/2025 2:59 PM FINDINGS: Limitations: Suboptimal evaluation of multiple sequences secondary to patient motion. Brain: No areas of reduced diffusion to suggest acute ischemic infarct. Cerebral ventricles: The ventricles and sulci are prominent in size compatible with moderate atrophy. MR/MR head wo con* [id number] IMPRESSION: Study is markedly limited by motion artifact. No acute infarct.
[2025-08-16 09:01] LABS: Alanine Aminotransferase 30 U/L (0-41); Albumin Level 4.2 g/dL (3.5-5.2); Alkaline Phosphatase 80 U/L (40-130); Aspartate Amino Transferase 28 U/L (0-40); Blood Urea Nitrogen 18 mg/dL (8-23); Calcium 9.5 mg/dL (8.5-10.5); Carbon Dioxide 22 mmol/L (22-29); Chloride 97 mmol/L (98-107); Creatinine Clr Calc Pharmacy 54.4276; Globulin 2.5 g/dL (1.3-4.6); Glucose 157 mg/dL (65-115); Osmolality Calculated 289 mOsm/kg (285-295); Sodium 137 mmol/L (136-145); Total Protein 6.7 g/dL (6.6-8.7)
[2025-08-16 09:05] LABS: Anion Gap 22.1 (5-19); Potassium 4.1 mmol/L (3.5-5.1)
[2025-08-16 10:29] LABS: Procalcitonin 0.05 ng/mL (0-0.5)
[2025-08-16] MEDS: levETIRAcetam 1,000 MG/100 ML PREMIX 400 MG IV (11:16)
[2025-08-16] MEDS: LORazepam 1 MG/0.5 ML injection IM ×2 (11:30→16:55)
[2025-08-16] MEDS: pantoprazole 40 mg SDV IVP (11:30)
[2025-08-16] MEDS: haloperidol inj 5 mg/mL INJ 1 mL 2 MG IM ×2 (11:31→15:45)
[2025-08-16] MEDS: diphenhydrAMINE 50 mg/mL SDV 1mL 25 MG IM (11:40)
--- NOTE | 2025-08-16 12:00 | PC.NURSE ---
IV attempts: With US , First attempt successful , vein accessed, pt thrashed around prior to veniguard placement. Aide assisted hold his arms. Second attempt, same thing, there were 2 aides, one for each arm. Third attempt vein blew . Fourth attempt with 3 aides assisting in positioning of patient, no tourniquet or US. 22 gauge to left forearm. Coban used to secure IV. Fluids and Keppra IVPB started.
--- NOTE | 2025-08-16 13:18 | P.PN_ITS ---
Subjective 2 Subjective: - Cj was seen this morning - His family members are at bedside - He is much more calm and collected thi s morning can follow commands - He is alert to person, to place, to ti me - During my examination he tends to have right-sided neglect on examination - He has good right upper and right lowe r extremity strength - He does have word finding difficulty, word salad, receptive aphasia - At times he is encephalopathic he was holding his phone in his hand and I asked him what he was holding and he he could not recognize that he was holding his phone - During my conversations with his famil y, who are sitting up to the right side of Cj, his intention would be towards his phone or 2 words his TV remote, seems to neglect the right side - Did also discuss with family that give n his encephalopathy, we will do a trial of Keppra to see if maybe he is having subclinical seizures, Vitals/I&O/Wt Last Vital Signs Temp 98.5 F 08/16/25 08:00 Pulse 68 08/16/25 08:00 Resp 18 08/16/25 04:00 BP 216/78 08/16/25 08:00 Pulse Ox 94 08/16/25 07:26 O2 Del Method Room Air 08/16/25 07:26 08/15/25 08/16/25 08/16/25 22:59 06:59 14:59 Intake Total 240 / 240 1000 / 1000 Balance 240 / 240 1000 / 1000 Weight last 48 hrs Weight 103.079 kg Weight 103.618 kg Physical Exam 2 Const: COMMON NORMALS: no acute distress Eye: COMMON NORMALS: Equal, round and reactive pupils present and EOMs intact bilaterally PUPIL: Yes Equal, round and reactive pupils present Resp: COMMON NORMALS: normal respiratory effort, No retractions, No use of accessory muscles and clear to auscultation bilaterally AUSCULTATION: clear to auscultation bilaterally Cardio: COMMON NORMALS: regular rate, regular rhythm, S1 normal heart sound present and S2 normal heart sound present RATE: regular rate RHYTHM: r egular rhythm HEART SOUNDS: S1 normal heart sound present and S2 normal heart sound present GI: COMMON NORMALS: Normal to inspection, nondistended, normoactive bowel sounds present and non-tender Extremity: COMMON NORMALS: no pedal edema Psych: COMMON NORMALS: mental status grossly normal Data 08/16/25 08:11 08/16/25 08:11 A&P Assessment and plan 1. Acute CVA (cerebrovascular accident): 2. Hypertension: 3. Type 2 diabetes mellitus: 4. Hypothalamic hypothyroidism: 5. Hyperlipidemia: 6. Type 2 diabetes, HbA1c goal < 7%: Plan: Acute CVA -Concern for right-sided deficits, word salad, receptive aphasia CT head FINDINGS: Brain: There is moderate cerebral atrophy. Negative for acute intracranial hemorrhage. Negative for mass effect on the brain. Negative for midline shift of brain. There is mild diffuse heterogeneity of the white matter attenuation, consistent with chronic white matter ischemic changes. Cerebral ventricles: Mild ventriculomegaly. Paranasal sinuses: Visualized sinuses are unremarkable. No fluid levels. Mastoid air cells: Visualized mastoid air cells are well aerated. Bones: Unremarkable. No acute fracture. Soft tissues: Unremarkable. CTA head and neck FINDINGS: Right common carotid artery: No stenosis. No dissection or occlusion. Right internal carotid artery: No stenosis of the extracranial segment. No dissection or occlusion. Minor plaque formation near the bifurcation. Right external carotid artery: No occlusion or stenosis of the origin. Left common carotid artery: No stenosis. No dissection or occlusion. Left internal carotid artery: No stenosis of the extracranial segment. No dissection or occlusion. Minor plaque formation near the bifurcation. Left external carotid artery: No occlusion or stenosis of the origin. Right vertebral artery: No stenosis. No dissection or occlusion. Left vertebral artery: No stenosis. No dissection or occlusion. Soft tissues: Normal. No significant soft tissue swelling. Bones/joints: No acute fracture. CT/CT angio headneck* [id number] IMPRESSION: No large vessel occlusion. IMPRESSION: No artery carotid artery stenosis or occlusion. -Symptoms started 08/14/2025 in the afternoon around 2 PM -NIH stroke scale 3 -Currently has word salad, receptive aphasia, productive aphasia -Out of tPA window -Not a thrombectomy candidate Cardiac echo CONCLUSIONS Normal left ventricular size and systolic function, EF 71%.no regional wall motion abnormalities. . Mild left ventricular hypertrophy. Linear echodensity in the lateral wall of the left atrium, most likely a represent Coumadin ridge. Moderate mitral annular calcification. Thickened aortic valve. Mild aortic valve calcification. No obvious intracardiac masses There is no pericardial effusion. CT head - CT/CT head wo con* [id number] IMPRESSION: 1. No interval change in the appearance the brain and no acute abnormality identified. 2. Intravascular hyperdensity reflecting previous intravenous contrast administration. Plan -Aspirin -Plavix -Statin -Telemetry monitoring -MRI brain ordered - Trial of 1 g of IV Keppra to see if that helps with his mentation -Permissive hypertension treat if systolic blood pressure greater than 220 or diastolic greater than 120 -Labetalol as needed ordered -PT OT -speech therapy eval, keep n.p.o. due to high aspiration risk - Full code -Lovenox for DVT prophylaxis Hypertension, hold blood pressure medications, allow for permissive hypertension Hypothyroid hypothyroidism, continue levothyroxine Type 2 diabetes mellitus, A1c, low-dose sliding scale PDMP PDMP Reviewed: Not Reviewed Attestations 2 Medical Necessity Statement*: Patient requires hospitalization for acute CVA, inpatient, greater than 2 midnights Diagnoses Acute CVA (cerebrovascular accident) I63.9 Hypertension I10 Type 2 diabetes mellitus E11.9 Hypothalamic hypothyroidism E03.8 Hyperlipidemia E78.5 Type 2 diabetes, HbA1c goal < 7% E11.9
--- NOTE | 2025-08-16 15:25 | ECG_ITS ---
[facility] 2025[facility]08[facility]16 Pat Name: Cj Stokes Department: Room: 264 Gender: Male Sharemilker: : 1955 Requested By: Ahsan Calabrese Order Number: [id number] Javi MD: Rashad Raman M.D. Measurements Intervals [place] Rate: 69 P: 64 UT: 161 QRS: 19 QRSD: 80 T: 233 QT: 416 QTc: 447 Interpretive Statements SINUS RHYTHM ST DEVIATION AND MODERATE T-WAVE ABNORMALITY, CONSIDER ANTEROLATERAL ISCHEMIA [-0.1+ mV T-WAVE IN V3-V6] ST DEVIATION AND MODERATE T-WAVE ABNORMALITY, CONSIDER INFERIOR ISCHEMIA [-0.1+ mV T-WAVE IN II/aVF] Compared to ECG 08/15/2025 13:27:31 Sinus bradycardia no longer present T-wave abnormality still present Possible ischemia still present Electronically Signed On 08-16-2025 17:47:11 CDT by Rashad Raman M.D. [email or web address]
--- NOTE | 2025-08-16 15:35 | PC.NURSE ---
Pt rolling side to side in bed. , tossing and turning. IV now out. Dr Calabrese notified by charge nurse. Orders for Haldol IM received and admin
[2025-08-16] MEDS: thiamine 100 mg/mL 2mL SDV 200 MG IM (16:55)
[2025-08-16 17:47] LABS: Vitamin B12 > 2000 pg/mL (232-1245)
--- NOTE | 2025-08-16 18:52 | PC.NURSE ---
Radiology called and asked to Icloud everything to [facility].
[2025-08-16 19:13] LABS: Respiratory Syncytial Virus Ce NEGATIVE (Negative); SARS-CoV-2 PCR NEGATIVE (Negative)
--- NOTE | 2025-08-16 19:19 | PC.NURSE ---
Shift summary: Pt's mental status has fluctuated today. He was later and answering questing appropriated. He was able to do the finger to nose and the heel to sanchez maneuvers. The Heel to sanchez maneuvers he did well. The finger to nose he, got it to his nose eventually. Then he became agitated, rolling around in the bed. He received Ativan, Haldol and Benadryl IM, IV started and IV Keppra admin. He settled in for a nap. But he was then unable to hold completely still for the MRI. He calmed down after . Agitating ramped back up this evening, he received Haldol, Ativan and thiamin IM. That seems to calm him some. Staff was able to complete the EKG. Sinus rhtyhm noted. Resp even and unlabored. His lung sounds were clear. His temp did increase this afternoon to 100.9. Pt denied pain today. He would pull at his incontinence briefs frequently. Only able to indicate he needed to use the urinal once, then rest of the time he was incontinent of urine. No Bm Noted this shift. He was able to eat lunch and his dinner fairly well. ( He was NPO as breakfast).
[2025-08-16 19:38] LABS: Ammonia 20 umol/L (16-60); Lipase 23 U/L (13-60)
[2025-08-16 19:41] LABS: Alcohol Level < 10 mg/dL (0-10)
[2025-08-16] MEDS: cefTRIAXone 1,000 mg SDV 1000 MG IVP (19:42)
[2025-08-16] MEDS: labetalol 5 mg/mL SDV 20mL 10 MG IVP (19:45)
[2025-08-16] MEDS: folic acid 1 MG, multivitamin inj 10 ML, thiamine 100 MG in sodium chloride 0.9% 1,000 ML 252.8 MG IV (19:52)
--- NOTE | 2025-08-16 21:07 | PC.NURSE ---
Discharge Note Patient discharged to [facility] via ambulance accompanied by ambulance personnel. 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 Mobile pharmacy medications and/or prescriptions provided. Belongings/home medications returned. and son called to notify of patient transferring.
[2025-08-22 12:10] LABS: Vitamin B1(Thiamin) Plas/Ser >1200 nmol/L (8-30)
== END 2025-08-16 21:10 | disposition short-term general hospital (02) | DRG 65 ==
LOC: ER 09:42 → MEDSURG 11:05
PROVIDERS: Admitting Provider Family Medicine; Emergency Provider Emergency Medicine; PCP Family Medicine; Visit Provider Family Medicine
DX: I63.9 Cerebral infarction, unspecified (principal); E51.2 Wernicke's encephalopathy; G81.91 Hemiplegia, unspecified affecting right dominant side; F10.239 Alcohol dependence with withdrawal, unspecified; R47.01 Aphasia; R29.703 NIHSS score 3; I10 Essential (primary) hypertension; E11.9 Type 2 diabetes mellitus without complications; E03.8 Other specified hypothyroidism; E78.5 Hyperlipidemia, unspecified; G47.30 Sleep apnea, unspecified; F41.9 Anxiety disorder, unspecified
CPT/HCPCS: 36415; 36416; 70450; 70496; 70498; 70551; 71045; 72110; 80053; 80061; 80306; 80307; 81001; 82140; 82607; 82746; 82962; 83036; 83690; 83721; 83880; 84145; 84425; 84443; 84484; 85025; 85610; 85730; 86140; 87040; 87637; 92523; 92610; 93005; 93306; 94664; 96372; 97161; 97166; 99203; 99285; J0696; J1200; J1630; J1650; J1815; J1953; J2060; J2470; J3372; J3411; J3490; J7030; J9999; Q0175

== ENCOUNTER 2025-09-16 12:45 | Outpatient (CLI) | payer MEDICARE, SELFPAY ==
--- NOTE | 2025-09-16 13:00 | MR_ITS ---
WS: [id number] MRI THORACIC SPINE noncontrast HISTORY: balance COMPARISON: 04/21/2016 TECHNIQUE: Multiplanar sequences are performed in sagittal and axial planes. Mild increase in thoracic kyphosis. T1 and T2 hemangiomas. Disc spaces are narrowed and desiccated, most significant at T7-8, T8-9 and T9-10. There are large bridging contiguous osteophytes along the mid RIGHT lateral thoracic spine. T1-2: Normal. T2-3: Mild bilateral facet arthritis. T3-4: Mild facet arthritis. T4-5: Moderate bilateral facet joint arthritis. Mild foraminal stenosis. T5-6: Mild facet arthritis and foraminal stenosis. T6-7: Mild facet arthritis. T7-8: Mild facet arthritis. T8-9: Central disc protrusion and mild facet arthritis. Mild foraminal stenosis. T9-10: Mild bilateral facet arthritis and foraminal stenosis. T10-11: Mild facet arthritis and moderate foraminal stenosis. T11-12: Mild facet arthritis and foraminal stenosis. Paravertebral soft tissues are normal. MR/MR thoracic spin wo con* [id number] IMPRESSION: 1. No high-grade central or foraminal stenosis. 2. Central disc protrusion at T8-9 with very slight contact of the ventral tho racic cord. 3. Facet joint arthropathy as described above. Moderate foraminal stenosis at T10-11. 4. Large RIGHT lateral bridging osteophytes in the mid and thoracic spine.
--- NOTE | 2025-09-16 13:45 | MR_ITS ---
WS: [id number] MRI CERVICAL SPINE NONCONTRAST HISTORY: balance issue COMPARISON: None available. Technique: Multiplanar, multisequence noncontrast imaging of the cervical spine. Straightening and reversal of the normal cervical lordosis. Signal within the cervical cord is normal. Visualized posterior fossa is unremarkable. Craniocervical junction, C1 and C2 relationship, odontoid process and soft tissues are normal. C2-C3: Small central disc protrusion. Mild facet arthritis. No high-grade stenosis. C3-C4: Osteophytic ridging, greatest on the LEFT. Mild effacement of ventral CSF. Mild facet arthritis. Mild central and LEFT foraminal stenosis. C4-C5: Diffuse osteophytic ridging. Mild central with moderate bilateral foraminal stenosis and facet arthritis. C5-C6: Diffuse osteophytic ridging and annular disc bulging with facet arthritis. Mild central and moderate foraminal stenosis. C6-C7: Diffuse annular disc bulging with osteophytic ridging and facet arthritis. Moderate to severe central and bilateral foraminal stenosis. C7-T1: Normal. Paraspinal soft tissue are normal. MR/MR cervical spin wo con* [id number] IMPRESSION: 1. Degenerative disc space narrowing and osteophytosis. 2. Multilevel central and foraminal stenosis due to combination of disc diseas e osteophytosis and facet arthritis. 3. Moderate to severe central with bilateral foraminal stenosis at C6-7. 4. Mild central and LEFT foraminal stenosis at C3-4. 5. Mild central and moderate foraminal stenosis at C4-5 and C5-6.
== END 2025-09-16 12:46 | disposition home or self-care (01) ==
LOC: RAD 12:49
PROVIDERS: PCP Family Medicine; Visit Provider Orthopaedic Surgery
DX: M50.322 Other cervical disc degeneration at C5-C6 level (principal); M48.02 Spinal stenosis, cervical region; M47.892 Other spondylosis, cervical region; M51.24 Other intervertebral disc displacement, thoracic region; M46.94 Unspecified inflammatory spondylopathy, thoracic region; R26.89 Other abnormalities of gait and mobility; G89.29 Other chronic pain
CPT/HCPCS: 72141; 72146

== ENCOUNTER → 2025-09-23 14:28 | Outpatient (BNVA) | payer MEDICARE, SELFPAY | PROVIDERS: PCP Family Medicine; Visit Provider Family Medicine | DX: E03.8 Other specified hypothyroidism (principal) | CPT/HCPCS: 84443 ==

== ENCOUNTER → 2025-10-13 09:05 | Outpatient (BNVA) | payer MEDICARE, SELFPAY | PROVIDERS: PCP Family Medicine; Visit Provider Orthopaedic Surgery | DX: M48.061 Spinal stenosis, lumbar region without neurogenic claudication (principal); G99.2 Myelopathy in diseases classified elsewhere; R26.89 Other abnormalities of gait and mobility | CPT/HCPCS: 72050; 72072; 99214 ==